=== PATIENT | male | born 1950 | race Caucasian/White ===

== ENCOUNTER 2017-10-22 09:37 | Inpatient (IN) | payer MEDICARE, OTHER, SELFPAY ==
[2017-10-22] VITALS (32 sets, daily range): BP systolic 140–176; BP diastolic 75–112; PULSE 64–90; RESP 9–20; TEMP 36–37.8; O2SAT 96–100; BMI 34.2; BMI 34.3; BMI 35.6
--- NOTE | 2017-10-22 09:54 | EKG12_ITS ---
Test Reason : Blood Pressure : / mmHG Vent. Rate : 068 BPM Atrial Rate : 068 BPM P-R Int : 168 ms QRS Dur : 084 ms QT Int : 396 ms P-R-T Axes : 054 -04 027 degrees QTc Int : 421 ms Normal sinus rhythm Low voltage QRS ST elevation consider anterolateral injury or acute infarct ACUTE SC / STEMI Abnormal ECG No previous ECGs available Confirmed by TRACEY PETTY, BRITTNY ([id number]), electronic news gathering editor CRISTINE ANDREA ([id number]) on 11/04/2017 9:38:03 AM Referred By: Vero Bullock Confirmed By:BRITTNY WEBB MD
--- NOTE | 2017-10-22 10:00 | ED.VISSUMM ---
- ER Visit Summary Date of Service: 10/22/17 Chief Complaint: Abdominal pain History of Present Illness: The patient is a 67 M meets the abdominal pain started on Friday. He was helping his son lipped/move metal scraps. He does complain of shortness of breath. He also informed that he has tightness in his throat and upper chest. He has pain that radiates and points to the xiphoid process to the sternal notch. He states the abdominal pain feels like I drank gasoline. When asked to clarify he replied burning. There is a positional component as well as an exertional component. He denies vomiting, diarrhea. Denies black or maroon stool. He denies history of peptic ulcer disease, hiatal hernia or reflux. He denies any discomfort in his shoulders, upper extremities or back. He denies any leg pain, swelling or discoloration. Has no other complaints. Upon further questioning he admits to diverticulitis. Initially he stated he had no medical problems only takes vitamins. When asked to compare the discomfort he is presently having with diverticulitis and he reports this is different. Physical Examination: Vital signs remarkable blood pressure 158/108. He appears uncomfortable. HEENT exam is unremarkable. Heart is regular without murmur, gallop or rub. S1 and S2 are normal. Lungs are clear to auscultation with good movement of air bilaterally. Abdomen is remarkable for tenderness to deep palpation between the xiphoid process and umbilicus. He has a reducible hernia. There is no asymmetry, swelling, discoloration, leg vein distention, palpable cords or tenderness along the distribution of the deep venous system. Neuro exam is nonfocal. Test Results: I was handed patient's EKG at 10 003 and he has an acute anterior ST elevation LA. Emergency Department Course and Treatment: Initial workup was undertaken to evaluate for GI versus cardiac etiology. In light of EKG changes will initiate STEMI alert and administer appropriate medication. Treatment Plan: STEMI alert called. Patient given appropriate meds and taken emergently to Computerized Table Cutter Disposition: To petroleum refinery laborer Impression: Acute anterior ST elevation LA This note was generated with [employer] dictation software. It may contain incorrect words, spelling, and punctuation that were not noted in review of the chart prior to signing ED Disposition - Plan for ED Patient: Chief Complaint: Abd Pain Referrals: Juan Pierce MD [Primary Care Provider] -
--- NOTE | 2017-10-22 10:05 | ED.DCSUM_ITS ---
- ER Visit Summary Date of Service: 10/22/17 Chief Complaint: Abdominal pain History of Present Illness: The patient is a 67 M meets the abdominal pain started on Friday. He was helping his son lipped/move metal scraps. He does complain of shortness of breath. He also informed that he has tightness in his throat and upper chest. He has pain that radiates and points to the xiphoid process to the sternal notch. He states the abdominal pain feels like I drank gasoline. When asked to clarify he replied burning. There is a positional component as well as an exertional component. He denies vomiting, diarrhea. Denies black or maroon stool. He denies history of peptic ulcer disease, hiatal hernia or reflux. He denies any discomfort in his shoulders, upper extremities or back. He denies any leg pain, swelling or discoloration. Has no other complaints. Upon further questioning he admits to diverticulitis. Initially he stated he had no medical problems only takes vitamins. When asked to compare the discomfort he is presently having with diverticulitis and he reports this is different. Physical Examination: Vital signs remarkable blood pressure 158/108. He appears uncomfortable. HEENT exam is unremarkable. Heart is regular without murmur, gallop or rub. S1 and S2 are normal. Lungs are clear to auscultation with good movement of air bilaterally. Abdomen is remarkable for tenderness to deep palpation between the xiphoid process and umbilicus. He has a reducible hernia. There is no asymmetry, swelling, discoloration, leg vein distention, palpable cords or tenderness along the distribution of the deep venous system. Neuro exam is nonfocal. Test Results: I was handed patient's EKG at 10 003 and he has an acute anterior ST elevation AL. Emergency Department Course and Treatment: Initial workup was undertaken to evaluate for GI versus cardiac etiology. In light of EKG changes will initiate STEMI alert and administer appropriate medication. Treatment Plan: STEMI alert called. Patient given appropriate meds and taken emergently to Deputy Chief Magistrate Disposition: To woodworking shop laborer Impression: Acute anterior ST elevation AL This note was generated with [employer] dictation software. It may contain incorrect words, spelling, and punctuation that were not noted in review of the chart prior to signing ED Disposition - Plan for ED Patient: Chief Complaint: Abd Pain Referrals: Juan Pierce MD [Primary Care Provider] -
[2017-10-22] MEDS: TICAGRELOR 90 MG TABLET 180 MG PO (10:07)
[2017-10-22] MEDS: Aspirin 81 MG TAB.CHEW 324 MG PO (10:07)
[2017-10-22] MEDS: Heparin Injection 5,000 UNITS/ML Syringe 4000 UNITS IV (10:07)
[2017-10-22 10:16] LABS: Absolute Lymphocyte Count 1.81 X10^3/ul (0.83-4.51); Absolute Neutrophil Count 5.7 X10^3/uL (2.0-7.7); Basophil# 0.03 X10^3/uL; Basophil% 0.4 % (0-1); Eosinophil# 0.07 X10^3/uL; Eosinophils% 0.9 % (0-5); Hematocrit 49.5 % (40-54); Hemoglobin 17.2 g/dl (13.0-16.5); Lymphocyte # 1.81 X10^3/ul (4.0); Lymphocyte % 22.2 % (19-41); Mean Corp Hgb Conc 34.7 g/gl (32-36); Mean Corpuscular Hgb 29.2 pg (27.0-32.0); Mean Platelet Vol. 10.1 fl (6.2-12.0); Monocyte# 0.58 X10^3/uL; Monocyte% 7.1 % (0-10); Neutrophil # 5.66 X10^3/uL (2.7-7.7); Neutrophil % 69.2 % (47-70); Platelet Count 241 K/mm3 (150-450); RBC Distribution Width CV 13.1 % (11.6-14.6); RBC Distribution Width SD 40.9 fl (35.1-43.9); Red Blood Count 5.89 M/mm3 (4.6-6.2); White Blood Count 8.2 K/mm3 (4.4-11.0)
[2017-10-22 10:17] LABS: POSITIVE COUNT NO; POSITIVE DIFFERENTIAL NO; POSITIVE MORPHOLOGY NO
--- NOTE | 2017-10-22 10:18 | ED.RN ---
1008 PT TO SPECIAL DELIVERY MAIL CARRIER. SPECIAL DELIVERY MAIL CARRIER CALLED READY SHORTLY AFTER STEMI CALLED.
--- NOTE | 2017-10-22 10:29 | CASEMGMT ---
Social Work Note Responded to STEMI alert. Pt in lab manager for procedure and , Sarah, waiting in internal waiting room. Introduced self and role to Sarah. Offer to make phone calls and she states she has contacted who she needs and just needs to contact her son at college. States that her other son Dawson is on his way. Sarah is tearful and emotional support provided. Additional stressors are that her mother is here for surgery today as well. Sarah continues to deny needs. Son, Dawson, arrives and SW offers to bring him back to internal waiting room while she call her other son. Escort Dawson from ED entrance to internal lab manager waiting area. Both continue to deny needs and thank SW. Make Sarah and Dawson aware that SW is available if needed. Pt to be admitted after procedure. Plan: DUGLAS Rico, NANOTECHNOLOGIST, CAP INSPECTOR
[2017-10-22 10:33] LABS: International Normalized Ratio 0.9; Partial Thromboplast Time 30.2 Seconds (24.1-36.2); Prothrombin Time (Protime)PT. 12.2 SECONDS (11.7-14.9)
[2017-10-22 10:43] LABS: AST(SGOT) 32 U/L (15-37); Alanine Aminotransfer ALT/SGPT 34 U/L (16-61); Albumin, Serum 3.9 g/dL (3.2-5.0); Alkaline Phosphatase 77 U/L (45-117); Bilirubin, Direct 0.15 mg/dL (0.00-0.30); Globulin 4.4 g/dL (2.2-4.2); Lipase 227 U/L (73-393); Protein, Total 8.3 g/dL (6.4-8.2)
[2017-10-22 10:51] LABS: Anion Gap 10 (5-15); BUN 14 mg/dL (7-18); BUN/Creat Ratio 10.4 RATIO (10-20); Calcium,Total 9.8 mg/dL (8.5-10.1); Chloride 101 mmol/L (98-107); Creatinine, Serum 1.34 mg/dL (0.70-1.30); EST Glomerular Filtration Rate 57 mL/min (>60); Est Glom Filt Rate - Afr Amer 69 mL/min (>60); Estimated Creatinine Clearance 54.96 ml/min; Glucose 135 mg/dL (74-106); Potassium 4.3 mmol/L (3.5-5.1); Sodium Level 137 mmol/L (136-145)
[2017-10-22 11:21] LABS: ACT Activated Clotting Time 313 sec (74-137)
[2017-10-22 11:21] LABS: ACT Activated Clotting Time 169 sec (74-137)
--- NOTE | 2017-10-22 11:30 | EKG12_ITS ---
Test Reason : STEMI Blood Pressure : / mmHG Vent. Rate : 067 BPM Atrial Rate : 067 BPM P-R Int : 166 ms QRS Dur : 086 ms QT Int : 382 ms P-R-T Axes : 053 044 052 degrees QTc Int : 403 ms Normal sinus rhythm Low voltage QRS Borderline ECG When compared with ECG of 22-OCT-2017 10:02, MANUAL COMPARISON REQUIRED, DATA IS UNCONFIRMED Confirmed by TRACEY PETTY, BRITTNY ([id number]), assignment editor CRISTINE ANDREA ([id number]) on 10/27/2017 2:06:22 PM Referred By: Vero Bullock Confirmed By:BRITTNY WEBB MD
--- NOTE | 2017-10-22 11:37 | CON.PCM_ITS ---
Problem List (1) ST elevation (STEMI) myocardial infarction involving left anterior descending coronary artery Status: Acute Reason for Consult Date of Consultation: 10/22/17 History of Present Illness: The patient is a 67 year old M with past medical history significant for diverticulitis only. According to the patient, he has been having anterior chest discomfort off and on since this last Friday. However since last night, it was more constant. He therefore sought help in the emergency room. He had also been complaining of tightness in his throat discomfort. In the emergency room, an EKG was done. It was consistent with acute anterior myocardial infarction. Subsequently a STEMI alert was called. Patient denies any previous history of coronary artery disease. He denies any history of angina either at rest or exertion before. However he does give history of some shortness of breath with exertion. Denies any palpitations. No orthopnea. No PND. No ankle edema. [] Past Medical History Allergies/Adverse Reactions: Allergies erythromycin base Adverse Reaction (Verified 10/22/17 09:40) Nausea/Vom/Diarrhea Smoking Status: Never smoker Review of Systems - Review of Systems General: Denies: Fever, Chills, Anorexia, Weight Loss HEENT: Denies: Head Aches Cardiovascular: Reports: Chest Discomfort at Rest. Denies: Orthopnea, PND, Peripheral Edema, Palpitations, Lightheadedness, Near Syncope, Syncope Respiratory: Denies: Cough, Hemoptysis, Shortness of Breath Gastrointestinal: Reports: Epigastric Discomfort Muscoloskeletal: Denies: Myalgias Psychiatric: Denies: Anxiety, Depression Endocrine: Denies: Heat Intolerance, Cold Intolerance, Unexplained Weight Loss Hematologic/ Lymphatic: Denies: Easy Brusing, Easy Bleeding Subjectve: Appeared distressed. Anxious Objective: Vital Signs Temp Pulse Resp BP Pulse Ox 98 F 64 20 H 158/108 H 100 10/22/17 09:38 10/22/17 09:38 10/22/17 09:38 10/22/17 09:38 10/22/17 09:38 General: Alert, Oriented x 3, In Acute Distress HEENT: Atraumatic, Normocephalic Oral: Moist Mucosa Neck: Supple Lungs: Clear to auscultation Cardiovascular: Regular Rhythm, Normal S1, Normal S2 Abdomen: Bowel Sounds Present, Soft, - - Mild epigastric tenderness. Extremities: No Cyanosis Neurological: No Focal Motor or Sensory Deficit Psych/Mental Status: Appropriate Rhythm: Normal sinus rhythm EKG: Normal sinus rhythm. ST elevation consistent with acute anterior myocardial infarction Assessment/Plan 1. Acute anterior myocardial infarction. Patient was advised emergent coronary angiography and possible revascularization. After obtaining informed consent, the procedure was undertaken. Coronary angiography revealed total occlusion of the proximal left anterior descending artery. Successful percutaneous revascularization was performed with aspiration thrombectomy and placement of a 3.0 x 38 mm resolute integrity drug-eluting stent. Excellent results were noted with confucianism of HARI-3 flow 2. Dual antiplatelet therapy with aspirin and Brilinta for at least one year 3. Start low-dose beta blockers, MILAD inhibitors and Aldactone 4. Impaired LV systolic function secondary to #1 above. Estimated ejection fraction 30-35%. Start low-dose beta blockers MILAD inhibitors and Aldactone as noted above 5. Start on statins. Check lipid profile 6. 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 For staged intervention, possibly as outpatient
--- NOTE | 2017-10-22 11:47 | CL.I_ITS ---
Patient Name: YAYA HOPKINS Study Date: 10/22/2017 Performing: Vero Bullock MD Ht: 69 inches 175 cm : 1950 Wt: 231.8 lbs 105 kg Age: 67 Gender: male BSA: 2.2 PROCEDURE(S) PERFORMED TG14-THD/COR/LV TI56-VJL, ESDRAS AND/OR PTCA, ARTERY OR GRAFT, SINGLE VESSEL CLINICAL PROFILE AND CO-MORBIDITIES CAD Presentations: STEMI. Symptom onset Date/Time: 10/22/2017 Time Not Available CONCLUSIONS 100% Prox LAD 70% Mid LCX 80% Mid RCA LVEF 30-35% RECOMMENDATIONS ASA Indefinitley Brilinta for at least 12 months Staged PCI to RCA +/- LCX DESCRIPTION OF PROCEDURE The patient arrived to the procedure lab. The risks and benefits of the procedure as well as a full d escription of our services here and lack of surgical backup were fully explained to the patient and/o r their significant other prior to the catheterization. The Timeout was completed, verifying the jhony ect patient and procedure. The patient's procedural site was prepped and draped in the usual fashion. Local anesthetic was given subcutaneously to right radial region with Lidocaine 2%. Using a modified Seldinger technique, arterial access was obtained via the right radial artery, a 6Fr sheath was inse rted.. Left Coronary Artery selective angiography was performed in multiple views using a 5 Fr. 4.0 [place] catheter. Right Coronary Artery selective angiography was then performed in multiple views usin g a 5 Fr. 4.0 [place] catheter. Left Ventriculography was performed in [place] projection using a 5 Fr. Pig tail catheter. LV to AO pullback pressures were then recordedThe images were reviewed and options dis cussed. A decision was then made to proceed with an Intervention, IVUS or other adjunct procedure. XB3.0 Guide catheter was inserted and engaged into the RCA. Runthru Guide wire was advanced to the LA D. [place] AP inserted Pass # 1 [place] AP Removed Angiogram performed pre stent dilatation. 3.0x38 Res olute Drug Eluting stent was advanced across the lesion in the LAD, proximal. Angiogram performed pos t stent deployment. NC Emerge 3.0x20 Balloon catheter was inserted post stent. Angiogram performed po st balloon dilatation.. . The arterial sheath was pulled and a TR Band was applied for hemostasis. CORONARY ANGIOGRAPHY DOMINANCE: Right Dominant LEFT HEART ASSESSMENT Left Ventricular Ejection Fraction: by LV Gram 35 % LVEDP: 10 mmHg LEFT MAIN: Angiographically normal LEFT ANTERIOR DECENDING ARTERY: PROX LAD: 100% RIGHT CORONARY ARTERY: 80% Mid INTERVENTION INFORMATION LESION SITE: LAD (Proximal) Lesion Complexity: High/C, thrombus present: Yes, culprit lesion: Yes Pre Stenosis: 100 % Pre intervention HARI flow: 0 PROCEDURE: Thrombectomy, Drug Eluting Stent with post dilatation Post Stenosis: 0 % Post intervention HARI flow: 3 Lesion Devices: Cordis 6 Fr XB3.0 100cm Guide Catheter Medtronic 6 Fr. [place] AP Aspiration Catheter Terumo .014 Runthrough Extra Floppy 180cm straight Medtronic Resolute RX ESDRAS 3.0x38 COMPLICATIONS No Complications PROCEDURE MEDICATIONS Fentanyl 50 mcg IV Versed 1 mg IV Versed 2 mg IV Fentanyl 50 mcg IV Oxygen: 2 L/min via nasal cannula Angiomax Bolus 15.8 ml's 10/22/2017 10:35:54 Angiomax 5mg / ml @ 36.8 ml/hr IV started @ 36.8 ml/hr @ 10/22/2017 10:41:32 Nitro 200 mcg IC 10/22/2017 10:52:25 Pepcid 20 mg IV 10/22/2017 10:23:09 SUMMARY OF HEMODYNAMIC DATA Time AIR REST ECG 10:20:33 AO 139/86 (111) SA 10:31:19 LV 138/2, 13 11:03:24 LV 134/5, 15 11:03:30 LV 135/12, 20 11:04:46 LVp 126/13, 20 11:04:55 AOp 141/89 (112) 11:05:00 Signed By Vero Bullock MD On 10/22/2017 11:46:35 Vero Bullock MD
[2017-10-22] MEDS: 0.9% Normal Saline 1,000 ML 100 ML IV (12:08)
[2017-10-22 12:12] LABS: Cholesterol 253 mg/dL (200); High Density Lipoprotein 46 mg/dL; Triglycerides 377 mg/dL; Very Low Density Lipoprotein 75 mg/dL (5-40)
[2017-10-22] MEDS: Lisinopril 2.5 MG Tablet PO ×2 (12:40→14:19)
[2017-10-22] MEDS: Carvedilol 3.125 MG TABLET PO ×2 (12:40→21:48)
[2017-10-22] MEDS: Atorvastatin Calcium 80 MG Tablet PO (12:40)
--- NOTE | 2017-10-22 14:07 | CRPHASE1 ---
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:: Calvin Quiroga Admit Date:: 10/22/17 Phase I Charge:: Level I - Education Risk Factors/Lifestyle Smoking Status: Never smoker Hx Hypertension: No Hx Diabetes Mellitus Type 2: No Hx Metabolic Disorders: No Hx Obesity: Yes Height: 1.75 m Weight:: 105.233 kg BMI: 34.2 Stress: Work-related Caffeine: Yes Laboratory Values: Cardiac Rehab Phase I Labs Triglycerides 377 mg/dL (-199) H 10/22/17 10:05 Cholesterol 253 mg/dL (200) H 10/22/17 10:05 LDL Cholesterol 132 mg/dL (0-130) H 10/22/17 10:05 HDL Cholesterol 46 mg/dL (40-) 10/22/17 10:05 Hospital Course Pain Description: Sharp, Cramping Date/LVF/EF:: 10/22/17 Cardiac Cath Date:: 10/22/17 Medical/Surgical History DC:: Yes Angina:: Yes - in lower abdominal Pulmonary:: No COPD:: No Asthma:: No Diabetes:: No Diabetes Type II:: No Hypertension:: No Dyslipidemia:: No CEA:: No PE:: No DVT:: No PVD:: No PAD:: No Arthritis:: No GI:: No GERD:: No Cancer:: No Renal:: No Thyroid:: No Depression:: No Anxiety:: No Discharge/Home/Social Eval Marital Status:
--- NOTE | 2017-10-22 14:11 | CRPHASE1_ITS ---
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 ):: Calvin Quiroga Admit Date:: 10/22/17 Phase I Charge:: Level I - Education Risk Factors/Lifestyle Smoking Status: Never smoker Hx Hypertension: No Hx Diabetes Mellitus Type 2: No Hx Metabolic Disorders: No Hx Obesity: Yes Height: 1.75 m Weight:: 105.233 kg BMI: 34.2 Stress: Work-related Caffeine: Yes Laboratory Values: Cardiac Rehab Phase I Labs Triglycerides 377 mg/dL (-199) H 10/22/17 10:05 Cholesterol 253 mg/dL (200) H 10/22/17 10:05 LDL Cholesterol 132 mg/dL (0-130) H 10/22/17 10:05 HDL Cholesterol 46 mg/dL (40-) 10/22/17 10:05 Hospital Course Pain Description: Sharp, Cramping Date/LVF/EF:: 10/22/17 Cardiac Cath Date:: 10/22/17 Medical/Surgical History [place]:: Yes Angina:: Yes - in lower abdominal Pulmonary:: No COPD:: No Asthma:: No Diabetes:: No Diabetes Type II:: No Hypertension:: No Dyslipidemia:: No CEA:: No PE:: No DVT:: No PVD:: No PAD:: No Arthritis:: No GI:: No GERD:: No Cancer:: No Renal:: No Thyroid:: No Depression:: No Anxiety:: No Discharge/Home/Social Eval Marital Status:
--- NOTE | 2017-10-22 14:11 | CRPH1.INSTRU ---
General Education CAD and cardiac anatomy and function:: Patient communicates acknowledgment Explanation of diagnoses and procedures:: Patient communicates acknowledgment Sign/Symptoms of NC:: Patient communicates acknowledgment Antiplatelet therapy: Patient communicates acknowledgment Proper use of NTG-SL: Patient communicates acknowledgment Emergency procedures and activation of EMS: Patient communicates acknowledgment Compliance of all prescribed medications: Patient communicates acknowledgment Smoking Patient Nicotine/Smoking Risk Factors Are:: Never smoked Dyslipidemia Recommendations Include:: Lipid profile not available - patients states doctor said normal range Overweight/Obesity Patient Overweight/Obesity Risk Factors Are:: Overweight = 26-29 Recommendations Include:: Weight loss of 5-10% Overweight/Obesity:: Patient communicates acknowledgment Hypertension Patient Hypertension Risk Factors Are:: No documented hx of HTN Heart Disease Patient Heart Disease Risk Factors Are:: Family history of heart disease < 65 years old - States coming back for second stent in a few months Heart Disease Response Code:: Patient communicates acknowledgment Diabetes Patient Diabetes Risk Factors Are:: No documented hx of diabetes Metabolic Syndrome Recommendations Include:: Does not meet criteria Metabolic Syndrome Response Code:: Patient communicates acknowledgment Sedentary Patient Sedentary Risk Factors Are:: Lack of regular exercise Sedentary Response Code:: Patient communicates acknowledgment Stress Stress Response Code:: Patient communicates acknowledgment
--- NOTE | 2017-10-22 14:15 | CRPH1.INST_ITS ---
General Education CAD and cardiac anatomy and function:: Patient communicates acknowledgment Explanation of diagnoses and procedures:: Patient communicates acknowledgment Sign/Symptoms of VA:: Patient communicates acknowledgment Antiplatelet therapy: Patient communicates acknowledgment Proper use of NTG-SL: Patient communicates acknowledgment Emergency procedures and activation of EMS: Patient communicates acknowledgment Compliance of all prescribed medications: Patient communicates acknowledgment Smoking Patient Nicotine/Smoking Risk Factors Are:: Never smoked Dyslipidemia Recommendations Include:: Lipid profile not available - patients states doctor said normal range Overweight/Obesity Patient Overweight/Obesity Risk Factors Are:: Overweight = 26-29 Recommendations Include:: Weight loss of 5-10% Overweight/Obesity:: Patient communicates acknowledgment Hypertension Patient Hypertension Risk Factors Are:: No documented hx of HTN Heart Disease Patient Heart Disease Risk Factors Are:: Family history of heart disease < 65 years old - States coming back for second stent in a few months Heart Disease Response Code:: Patient communicates acknowledgment Diabetes Patient Diabetes Risk Factors Are:: No documented hx of diabetes Metabolic Syndrome Recommendations Include:: Does not meet criteria Metabolic Syndrome Response Code:: Patient communicates acknowledgment Sedentary Patient Sedentary Risk Factors Are:: Lack of regular exercise Sedentary Response Code:: Patient communicates acknowledgment Stress Stress Response Code:: Patient communicates acknowledgment
[2017-10-22 14:51] LABS: M R Staph aureus DNA By PCR Negative (Negative); Probe Check PASS; Specimen Processing Control PASS
[2017-10-22] MEDS: Spironolactone 25 MG Tablet 12.5 MG PO (16:33)
--- NOTE | 2017-10-22 17:50 | PCM.HP.STD ---
Problem List (1) ST elevation (STEMI) myocardial infarction involving left anterior descending coronary artery Status: Acute (2) Coronary artery disease involving [place] coronary artery of [place] heart Status: Acute Qualifiers: Associated angina: angina presence unspecified Qualified Code(s): I25.10 - Atherosclerotic heart disease of [place] coronary artery without angina pectoris History of Present Illness Date of Admission: 10/22/17 Chief Complaint: chest pain Patient is a 67 years old male with no significant medical problems other than diverticulitis in the past, presents with complaining of chest pain. The chest pain is substernal mid chest pain with some burning quality. He was having chest pain for past 3 days, but the pain was becoming more constant, patient decided to visit ED. At there he had ST elevation of anterior leads, consistent with anterior acute myocardial infarction. Troponin was 1 initially. He was sent to laundry laborer for emergency PTCA. He was found to have total occlusion of proximal LAD, stent was placed. Past Medical History Allergies erythromycin base Adverse Reaction (Verified 10/22/17 09:40) Nausea/Vom/Diarrhea Surgical History: no surgical history Psychiatric History: No pertinent psych hx Lives: Spouse/ Significant Other Smoking Status: Never smoker - *Family History Maternal History Items: No pertinent history Review of Systems Comment: ROS: In general: Patient has been in good health, denied of any constitutional symptoms, such as weight loss, or gain, fever, chills, or night sweats. Patient denied of any profound fatigue. HEENT: Unremarkable. Patient denied of any dizziness, chronic headache, blurred vision, double vision, dry mouth, or nasal congestion. CV/respiratory: See HPI. GI: Patient denied any abdominal pain, nausea, vomiting, diarrhea, constipation, melena, or hematochezia. : Patient denied any significant urinary symptoms. Neurology: Unremarkable. There is no history of seizure as an adult. Psychological: Unremarkable. ?. Endocrine: Unremarkable. Musculoskeletal: Unremarkable. VTE Information - Inpt Only VTE Present on Admission: No VTE Mechan Device Prophylaxis: SCD's VTE Pharm Prophylaxis ordered?: Yes Patient Problems: Active and Suspected Problems ST elevation (STEMI) myocardial infarction involving left anterior descending coronary artery (Acute) Coronary artery disease involving [place] coronary artery of [place] heart (Acute) Subjective: In general, patient is a well-nourished and developed adult. HEENT: Head is atraumatic, and normocephalic. Pupils are equal, round, and reactive to light and accommodations. Neck is supple. There is no lymphadenopathy, or thyromegaly. Oral mucosa is pink, and moist. There are no lesions. Heart: Auscultation is normal with regular rhythm and rate. There is no extra heart sounds, or murmurs. S1 and S2 are present. Point of maximal impulse is not displaced. Lungs: Lungs are clear to auscultation bilaterally. There is no wheezing, or crackles. Abdomen: Abdominal wall is non-tender, and non-distended. There is no palpable mass or organomegaly. Normoactive bowel sounds are present. Extremities: There is no cyanosis or clubbing. Peripheral pulses are palpable. There is no edema. Skin: There are no any skin discoloration or lesions. Neurological: CN II - XII are intact. Sensory and motor functions are grossly normal with no obvious deficit. Cerebellar functions are within normal range. Gait was not tested. - Physical Exam Vital Signs Temp Pulse Resp BP Pulse Ox 96.8 F L 71 13 152/88 H 99 10/22/17 17:00 10/22/17 17:00 10/22/17 17:00 10/22/17 17:00 10/22/17 17:00 Oxygen Flow Rate (L/min) 2 Oxygen Delivery Method Room Air Weight: 232 lb Body Mass Index (BMI) 35.6 Intake and Output for Last 24 Hours 10/20/17 10/21/17 10/22/17 23:59 23:59 23:59 Output Total 300 / 300 Balance -300 / -300 Laboratory Tests Past 24 Hrs 10/22/17 10/22/17 10/22/17 10:31 11:04 11:40 Activated Clotting Time 169 H 313 H MRSA (PCR) Negative Assessment/Plan Active and Suspected Problems ST elevation (STEMI) myocardial infarction involving left anterior descending coronary artery (Acute) Coronary artery disease involving [place] coronary artery of [place] heart (Acute) Patient is a 67 years old male with no significant medical problems other than diverticulitis in the past, presents with complaining of chest pain. The chest pain is substernal mid chest pain with some burning quality. He was having chest pain for past 3 days, but the pain was becoming more constant, patient decided to visit ED. At there he had ST elevation of anterior leads, consistent with anterior acute myocardial infarction. Troponin was 1 initially. He was sent to laundry laborer for emergency PTCA. He was found to have total occlusion of proximal LAD, stent was placed. #1 S/P anterior acute myocardial infarction. S/P PTCA with ESDRAS to LAD. Dual antiplatelet therapy with aspirin and Brilinta. Beta-donna and statin were started. #2 LV systolic dysfunction. EF30-35%. Low dose lisinopril, beta donna, and spironolactone were started. #3 Coronary artery disease. He still has severe residual coronary artery disease in RCA and left circumflex. Cardiology is planning staged intervention. VTE prophylaxis: Lovenox SQ. GI prophylaxis: H2 donna po. Patient is full code. Disposition: home in 1 to 2 days. Code Visit Inpatient E&M: 86192 Init Hosp L3
--- NOTE | 2017-10-22 18:04 | HP.PCM_ITS ---
Problem List (1) ST elevation (STEMI) myocardial infarction involving left anterior descending coronary artery Status: Acute (2) Coronary artery disease involving [place] coronary artery of [place] heart Status: Acute Qualifiers: Associated angina: angina presence unspecified Qualified Code(s): I25.10 - Atherosclerotic heart disease of [place] coronary artery without angina pectoris History of Present Illness Date of Admission: 10/22/17 Chief Complaint: chest pain Patient is a 67 years old male with no significant medical problems other than diverticulitis in the past, presents with complaining of chest pain. The chest pain is substernal mid chest pain with some burning quality. He was having chest pain for past 3 days, but the pain was becoming more constant, patient decided to visit ED. At there he had ST elevation of anterior leads, consistent with anterior acute myocardial infarction. Troponin was 1 initially. He was sent to microbiology lab analyst for emergency PTCA. He was found to have total occlusion of proximal LAD, stent was placed. Past Medical History Allergies erythromycin base Adverse Reaction (Verified 10/22/17 09:40) Nausea/Vom/Diarrhea Surgical History: no surgical history Psychiatric History: No pertinent psych hx Lives: Spouse/ Significant Other Smoking Status: Never smoker - *Family History Maternal History Items: No pertinent history Review of Systems Comment: ROS: In general: Patient has been in good health, denied of any constitutional symptoms, such as weight loss, or gain, fever, chills, or night sweats. Patient denied of any profound fatigue. HEENT: Unremarkable. Patient denied of any dizziness, chronic headache, blurred vision, double vision, dry mouth, or nasal congestion. CV/respiratory: See HPI. GI: Patient denied any abdominal pain, nausea, vomiting, diarrhea, constipation, melena, or hematochezia. : Patient denied any significant urinary symptoms. Neurology: Unremarkable. There is no history of seizure as an adult. Psychological: Unremarkable. ?. Endocrine: Unremarkable. Musculoskeletal: Unremarkable. VTE Information - Inpt Only VTE Present on Admission: No VTE Mechan Device Prophylaxis: SCD's VTE Pharm Prophylaxis ordered?: Yes Patient Problems: Active and Suspected Problems ST elevation (STEMI) myocardial infarction involving left anterior descending coronary artery (Acute) Coronary artery disease involving [place] coronary artery of [place] heart (Acute) Subjective: In general, patient is a well-nourished and developed adult. HEENT: Head is atraumatic, and normocephalic. Pupils are equal, round, and reactive to light and accommodations. Neck is supple. There is no lymphadenopathy, or thyromegaly. Oral mucosa is pink, and moist. There are no lesions. Heart: Auscultation is normal with regular rhythm and rate. There is no extra heart sounds, or murmurs. S1 and S2 are present. Point of maximal impulse is not displaced. Lungs: Lungs are clear to auscultation bilaterally. There is no wheezing, or crackles. Abdomen: Abdominal wall is non-tender, and non-distended. There is no palpable mass or organomegaly. Normoactive bowel sounds are present. Extremities: There is no cyanosis or clubbing. Peripheral pulses are palpable. There is no edema. Skin: There are no any skin discoloration or lesions. Neurological: CN II - XII are intact. Sensory and motor functions are grossly normal with no obvious deficit. Cerebellar functions are within normal range. Gait was not tested. - Physical Exam Vital Signs Temp Pulse Resp BP Pulse Ox 96.8 F L 71 13 152/88 H 99 10/22/17 17:00 10/22/17 17:00 10/22/17 17:00 10/22/17 17:00 10/22/17 17:00 Oxygen Flow Rate (L/min) 2 Oxygen Delivery Method Room Air Weight: 232 lb Body Mass Index (BMI) 35.6 Intake and Output for Last 24 Hours 10/20/17 10/21/17 10/22/17 23:59 23:59 23:59 Output Total 300 / 300 Balance -300 / -300 Laboratory Tests Past 24 Hrs 10/22/17 10/22/17 10/22/17 10:31 11:04 11:40 Activated Clotting Time 169 H 313 H MRSA (PCR) Negative Assessment/Plan Active and Suspected Problems ST elevation (STEMI) myocardial infarction involving left anterior descending coronary artery (Acute) Coronary artery disease involving [place] coronary artery of [place] heart (Acute) Patient is a 67 years old male with no significant medical problems other than diverticulitis in the past, presents with complaining of chest pain. The chest pain is substernal mid chest pain with some burning quality. He was having chest pain for past 3 days, but the pain was becoming more constant, patient decided to visit ED. At there he had ST elevation of anterior leads, consistent with anterior acute myocardial infarction. Troponin was 1 initially. He was sent to microbiology lab analyst for emergency PTCA. He was found to have total occlusion of proximal LAD, stent was placed. #1 S/P anterior acute myocardial infarction. S/P PTCA with ESDRAS to LAD. Dual antiplatelet therapy with aspirin and Brilinta. Beta-donna and statin were started. #2 LV systolic dysfunction. EF30-35%. Low dose lisinopril, beta donna, and spironolactone were started. #3 Coronary artery disease. He still has severe residual coronary artery disease in RCA and left circumflex. Cardiology is planning staged intervention. VTE prophylaxis: Lovenox SQ. GI prophylaxis: H2 donna po. Patient is full code. Disposition: home in 1 to 2 days. Code Visit Inpatient E&M: 91599 Init Hosp L3
[2017-10-22] MEDS: Famotidine 20 MG Tablet PO (19:28)
[2017-10-22] MEDS: TICAGRELOR 90 MG TABLET PO (21:48)
[2017-10-23] VITALS (28 sets, daily range): BP systolic 80–132; BP diastolic 53–99; PULSE 79–130; RESP 11–25; TEMP 36.8–37.9; O2SAT 93–99
--- NOTE | 2017-10-23 05:55 | EKG12_ITS ---
Test Reason : INVERT T WAVE Blood Pressure : / mmHG Vent. Rate : 091 BPM Atrial Rate : 091 BPM P-R Int : 168 ms QRS Dur : 084 ms QT Int : 398 ms P-R-T Axes : 057 033 100 degrees QTc Int : 489 ms Normal sinus rhythm Low voltage QRS A- Septal infarct -recent Confirmed by TRACEY PETTY, BRITTNY ([id number]), graphic editor CRISTINE ANDREA ([id number]) on 10/27/2017 2:05:19 PM Referred By: Vero Bullock Confirmed By:BRITTNY WEBB MD
[2017-10-23] MEDS: Enoxaparin 40 MG/0.4 ML Syringe SC (05:57)
[2017-10-23 06:05] LABS: Hematocrit 47.2 % (40-54); Hemoglobin 16.3 g/dl (13.0-16.5); Mean Corp Hgb Conc 34.5 g/gl (32-36); Mean Corpuscular Hgb 29.6 pg (27.0-32.0); Mean Corpuscular Volume 85.8 fL (80-94); Platelet Count 241 K/mm3 (150-450); RBC Distribution Width CV 13.6 % (11.6-14.6); RBC Distribution Width SD 42.2 fl (35.1-43.9)
[2017-10-23 06:09] LABS: Scan Indicated on CBC? Y/N NO
[2017-10-23 06:13] LABS: ALB/GLOB Ratio 0.8 RATIO (0.9-2.4); AST(SGOT) 322 U/L (15-37); Alanine Aminotransfer ALT/SGPT 69 U/L (16-61); Albumin, Serum 3.2 g/dL (3.2-5.0); Alkaline Phosphatase 61 U/L (45-117); Anion Gap 7 (5-15); BUN 13 mg/dL (7-18); BUN/Creat Ratio 10.7 RATIO (10-20); Calcium,Total 8.7 mg/dL (8.5-10.1); Chloride 101 mmol/L (98-107); Creatinine, Serum 1.22 mg/dL (0.70-1.30); EST Glomerular Filtration Rate 63 mL/min (>60); Est Glom Filt Rate - Afr Amer 77 mL/min (>60); Estimated Creatinine Clearance 60.37 ml/min; Globulin 3.9 g/dL (2.2-4.2); Glucose 118 mg/dL (74-106); Potassium 3.9 mmol/L (3.5-5.1); Protein, Total 7.1 g/dL (6.4-8.2); Sodium Level 136 mmol/L (136-145)
--- NOTE | 2017-10-23 07:08 | CT_ITS ---
STUDY: CT ABDOMEN AND PELVIS WITH CONTRAST REASON FOR EXAM: Male, 67 years old. Abdominal pain. History of diverticulitis. RADIATION DOSAGE (If Supplied By Facility): CTDIvol = ( 18.99 ) mGy, DLP = ( 1118.99 ) mGycm TECHNIQUE: Transaxial images were obtained from the dome of the diaphragm to the symphysis pubis with oral contrast. 100CC ml of Isovue 300 contrast was administered. Sagittal and coronal images were reconstructed. Individualized dose optimization techniques were used for this CT. COMPARISON: CT of the abdomen and pelvis, January 25, 2008. FINDINGS: There is a vague semisolid nodule at the left lung base measuring 8 mm in diameter. This is best seen on image 22 of series 2 using lung windows. Lung bases are otherwise clear. The visualized portions of the heart are within normal limits. There is diffuse fatty infiltration of liver without focal mass. There is minimal focal fatty sparing along the gallbladder fossa. Normal gallbladder and extrahepatic biliary system. Normal spleen. Normal pancreas. Is slight prominence of both adrenal glands which may represent hyperplasia or small adenomas. Normal right kidney. Normal left kidney. Normal bilateral ureters. Normal visualized stomach. Normal small intestine. There is sigmoid diverticulosis without acute inflammatory change. The proximal colon is redundant but otherwise unremarkable. The appendix is visualized and appears normal. Normal abdominal aorta. Normal inferior vena cava. Normal retroperitoneum. Normal urinary bladder. Prostate and seminal vesicles. There is no pelvic lymphadenopathy. No free air or free fluid is seen within the peritoneal cavity. There is left inguinal hernia of omental fat. The abdominal wall is otherwise unremarkable. There are mild degenerative changes of the lumbar spine. CT/Abdomen/Pelvis WITH Contrast IMPRESSION: 1. The vague nodular density seen at the left lung base appears mildly increased in size from prior CT. Dedicated chest CT is recommended. 2. Fatty infiltration of the liver. 3. Diverticulosis without acute inflammatory change. 4. No other interval changes. Electronically Signed: Bharat Lai DO at 13:20 EDT Tel [phone], Service support ,
[2017-10-23] MEDS: 0.9% Normal Saline 1,000 ML 75 ML IV ×2 (07:54→12:25)
--- NOTE | 2017-10-23 08:00 | ECHOD_ITS ---
Reason For Study: S/P IA Procedure This was a 2D Doppler, Color Flow transthoracic echocardiogram. Exam performed portable in ICU/CCU. Left Ventricle Normal LV size. Moderate segmental systolic dysfunction (see wall motion). The estimated ejection fraction is 35 %. [place] : Akinetic. Anterio-Basal: Normal. Lateral-Basal: Normal. Posterior-Basal: Normal. Infero-Basal: Normal. Basal inferoseptal: Hypokinetic. Basal anteroseptal: Hypokinetic. Mid -Anterior : Hypokinetic. Mid-Lateral : Normal. Mid-Posterior: Normal. Mid-Inferior: Normal. Mid- inferoseptal : Hypokinetic. Mid-anteroseptal : Hypokinetic. The rest of the wall segments are normal. Right Ventricle Normal RV size. Normal systolic function. Atria Normal left atrium. Normal right atrium. Mitral Valve Normal mitral valve. Tricuspid Valve Normal tricuspid valve. Aortic Valve Normal aortic valve. Trisinus/trileaflet aortic valve. Pulmonic Valve Normal pulmonic valve. Great Vessels Mildly dilated aortic root. The pulmonary artery is normal size. Normal inferior vena cava. Pericardium/Pleural No pericardial effusion. MMode/2D Measurements & Calculations LVIDd: 3.4 cm IVSd: 1.3 cm Ao root diam: 4.0 cm RVDd: 2.7 cm LVPWd: 1.1 cm LA dimension: 3.6 cm LAV(MOD-bp): 31.0 ml EDV(MOD-sp4): 110.2 ml EDV(MOD-sp2): 77.1 ml LAV(MOD-bp) Indexed: 14.0 ml/m2 ESV(MOD-sp4): 64.9 ml EF(MOD-sp2): 15.2 % LAV(MOD-sp2): 31.0 ml EF(MOD-sp4): 41.2 % LAV(MOD-sp4): 24.4 ml SV(MOD-sp4): 45.4 ml SV(MOD-sp2): 11.7 ml LA A4 area: 11.0 cm2 RA A4 area: 8.1 cm2 Doppler Measurements & Calculations MV E max james: 27.8 cm/sec Ao V2 max: 102.3 cm/sec LV V1 max: 79.7 cm/sec MV A max james: 74.7 cm/sec Ao max P.2 mmHg LV V1 max P.5 mmHg MV E/A: 0.37 Interpretation Summary Normal LV size. Moderate segmental systolic dysfunction (see wall motion). The estimated ejection fraction is 35 %. Structurally normal valves. Ordering Physician: Vero Bullcok Referring Physician: JOE MAXWELL Performed By: Tram Vargas RDCS, RVT
--- NOTE | 2017-10-23 09:00 | PCM.PN.CARD ---
Subjectve: Patient seen and evaluated and appears to be stable. Abdominal discomfort has subsided Objective: Vital Signs Temp Pulse Resp BP Pulse Ox 98.3 F 87 16 118/72 95 10/23/17 08:00 10/23/17 08:00 10/23/17 08:00 10/23/17 08:00 10/23/17 08:00 Oxygen Flow Rate (L/min) 2 Oxygen Delivery Method Room Air Weight: 234 lb 12.677 oz Body Mass Index (BMI) 35.6 Intake and Output for Last 24 Hours 10/21/17 10/22/17 10/23/17 23:59 23:59 23:59 Intake Total 700 / 700 240 / 240 Output Total 600 / 600 1050 / 1050 Balance 100 / 100 -810 / -810 General: Awake, Alert, Oriented x 3 HEENT: PERRL, EOMI, Sclera Non Icteric Neck: Supple, Good ROM, No Lymph Node Enlargement Lungs: Clear to auscultation Cardiovascular: Regular Rhythm, Normal S1, Normal S2, No Murmurs, No Rubs, No Gallops Vascular: No Carotid Bruits, Normal Femoral Pulses, Normal Radial Pulses, Normal Dorsalis Pedal Pulse, Normal Posterior Tibial Pulses Abdomen: Bowel Sounds Present, Soft, Non Tender, No HSM, No Organomegaly Extremities: No Cyanosis, No Clubbing, No edema Neurological: No Focal Motor or Sensory Deficit 10/23/17 05:45: Sodium 136, Potassium 3.9, Chloride 101, Carbon Dioxide 28.0, Anion Gap 7, BUN 13, Creatinine 1.22, Est GFR (MDRD) Af Amer 77, Est GFR (MDRD) Non-Af 63, BUN/Creatinine Ratio 10.7, Glucose 118 H, Calcium 8.7, Total Bilirubin 0.90 10/23/17 05:45: WBC 15.0 H, RBC 5.50, Hgb 16.3, Hct 47.2, MCV 85.8, MCH 29.6, MCHC 34.5, RDW 13.6, RDW Differential 42.2, Plt Count 241, MPV 10.0 Rhythm: EKG: ECHO: Stress Test: Cardiac Cath: PCI: CT Surgery: Holter monitor: EPS: PPM: CXR: Chest CT Scan: Medical Necessity - Tobacco Use Smoking Status: Never smoker Assessment/Plan 1. ST elevation myocardial infarction The patient presented with abdominal discomfort and was noted to have an ST elevation myocardial infarction for which he underwent angioplasty and stenting with a drug-eluting stent to the left anterior descending artery. His EKG today demonstrates evolving changes. His hemoglobin is stable with no significant drop and his creatinine is also stable with no significant rise. An echocardiogram will be performed today to assess his left ventricular function. He will be started on a beta-donna MILAD inhibitor and high intensity statin in addition to the aspirin and ticagrelor. He does have residual disease in the circumflex artery and right coronary artery and we may consider staged angioplasty or stress testing and angioplasty. 2. Abdominal discomfort He does have previous evidence of abdominal discomfort the etiology of which is not entirely clear his liver function tests are mildly abnormal and I would recommend that we obtain a CT scan of the abdomen and pelvis to exclude any abdominal pathology. Depending on the findings further recommendations will be made. Thank you for allowing me to participate in the care of your patient. Please don't hesitate to call if any issues arise
--- NOTE | 2017-10-23 11:30 | EKG12_ITS ---
Test Reason : AM EKG Blood Pressure : / mmHG Vent. Rate : 085 BPM Atrial Rate : 085 BPM P-R Int : 182 ms QRS Dur : 086 ms QT Int : 404 ms P-R-T Axes : 053 063 081 degrees QTc Int : 480 ms Normal sinus rhythm Low voltage QRS Recent anterior myocardial infarct Confirmed by TRACEY PETTY, BRITTNY ([id number]), non linear editor CRISTINE ANDREA ([id number]) on 10/27/2017 2:06:09 PM Referred By: Vero Bullock Confirmed By:BRITTNY WEBB MD
--- NOTE | 2017-10-23 11:40 | CASEMGMT ---
Case management chart review performed. CM will continue to follow patient's progress. DC Plan: Home.
[2017-10-23] MEDS: Lisinopril 2.5 MG Tablet PO (12:25)
[2017-10-23] MEDS: Carvedilol 3.125 MG TABLET PO ×2 (12:26→21:20)
[2017-10-23] MEDS: Famotidine 20 MG Tablet PO ×2 (12:26→21:20)
[2017-10-23] MEDS: Aspirin E.C. 81 MG Tablet PO (12:26)
[2017-10-23] MEDS: TICAGRELOR 90 MG TABLET PO ×2 (12:26→21:20)
--- NOTE | 2017-10-23 17:31 | PCM.PROGNOTE ---
Patient Problems: Active and Suspected Problems ST elevation (STEMI) myocardial infarction involving left anterior descending coronary artery (Acute) Coronary artery disease involving [place] coronary artery of [place] heart (Acute) Subjective: He feels well. He had some upper abdominal discomfort, responded to antacid. No chest pain otherwise. CT of abd/pelvis were unremarkable except for questionable change in left lung base 8 mm nodule. - Physical Exam General: Alert, Oriented x3, Cooperative, Well developed, Well nourished HEENT: Atraumatic, Normocephalic Oral: Moist Mucosa Neck: Supple, No JVD, Negative Carotid Bruits Lungs: Clear to auscultation, Normal air movement, No rhonchi, No wheeze, No rales Cardiovascular: Regular rate, Regular Rhythm, Normal S1, Normal S2, No murmurs, No Ectopic Activity Abdomen: Bowel Sounds Present, Soft, Non Tender, Non-Distended, No Hepato-splenomegaly Extremities: No clubbing, No cyanosis, No edema Skin: No rashes, No breakdown Musculoskeletal: No Tenderness to Palpation of Joints or Extremities, No Muscle Wasting Lymphatic: No Cervical, Supraclavicular, or Inguinal Adenopathy Neurological: Cranial nerves II-XII grossly intact, Neuro grossly intact Psych/Mental Status: Normal Affect, Appropriate Vital Signs Temp Pulse Resp BP Pulse Ox 98.7 F 85 11 L 108/76 98 10/23/17 12:00 10/23/17 17:00 10/23/17 17:00 10/23/17 17:00 10/23/17 17:00 Oxygen Flow Rate (L/min) 2 Oxygen Delivery Method Room Air Weight: 234 lb 12.677 oz Body Mass Index (BMI) 35.6 Intake and Output for Last 24 Hours 10/21/17 10/22/17 10/23/17 23:59 23:59 23:59 Intake Total 700 / 700 642 / 642 Output Total 600 / 600 1550 / 1550 Balance 100 / 100 -908 / -908 Laboratory Tests Past 24 Hrs 10/23/17 10/23/17 05:45 05:45 WBC 15.0 H RBC 5.50 Hgb 16.3 Hct 47.2 MCV 85.8 MCH 29.6 MCHC 34.5 RDW 13.6 RDW Differential 42.2 Plt Count 241 MPV 10.0 Sodium 136 Potassium 3.9 Chloride 101 Carbon Dioxide 28.0 Anion Gap 7 BUN 13 Creatinine 1.22 Estim Creat Clear Calc 60.37 Est GFR (MDRD) Af Amer 77 Est GFR (MDRD) Non-Af 63 BUN/Creatinine Ratio 10.7 Glucose 118 H Calcium 8.7 Total Bilirubin 0.90 AST 322 H ALT 69 H Alkaline Phosphatase 61 Troponin I 82.70 H* Total Protein 7.1 Albumin 3.2 Globulin 3.9 Albumin/Globulin Ratio 0.8 L Diagnostic Data Abdomen/Pelvis CT 10/23/17 07:08 IMPRESSION: 1. The vague nodular density seen at the left lung base appears mildly increased in size from prior CT. Dedicated chest CT is recommended. 2. Fatty infiltration of the liver. 3. Diverticulosis without acute inflammatory change. 4. No other interval changes. Electronically Signed: Bharat Lai DO at 13:20 EDT Tel [phone], Service support , Medical Necessity - Tobacco Use Smoking Status: Never smoker Tobacco Use: Non-smoker Assessment/Plan Active and Suspected Problems ST elevation (STEMI) myocardial infarction involving left anterior descending coronary artery (Acute) Coronary artery disease involving [place] coronary artery of [place] heart (Acute) Patient is a 67 years old male with no significant medical problems other than diverticulitis in the past, presents with complaining of chest pain. The chest pain is substernal mid chest pain with some burning quality. He was having chest pain for past 3 days, but the pain was becoming more constant, patient decided to visit ED. At there he had ST elevation of anterior leads, consistent with anterior acute myocardial infarction. Troponin was 1 initially. He was sent to laborer syrup machine for emergency PTCA. He was found to have total occlusion of proximal LAD, stent was placed. #1 S/P anterior acute myocardial infarction. S/P PTCA with ESDRAS to LAD. Dual antiplatelet therapy with aspirin and Brilinta. Beta-donna and statin were started. #2 LV systolic dysfunction. EF30-35%. Low dose lisinopril, beta donna, and spironolactone were started. #3 Coronary artery disease. He still has severe residual coronary artery disease in RCA and left circumflex. Cardiology is planning staged intervention. #[address] of abdomen. Left lung base 8 mm nodule appears larger than previous study. Radiology recommended for dedicated CT. Plan for CT chest with contrast tomorrow. VTE prophylaxis: Lovenox SQ. GI prophylaxis: H2 donna po. Patient is full code. Disposition: home in 1 to 2 days. Code Visit Inpatient E&M: 14988 Subs Hosp L2
--- NOTE | 2017-10-23 17:38 | PN_ITS ---
Patient Problems: Active and Suspected Problems ST elevation (STEMI) myocardial infarction involving left anterior descending coronary artery (Acute) Coronary artery disease involving [place] coronary artery of [place] heart (Acute) Subjective: He feels well. He had some upper abdominal discomfort, responded to antacid. No chest pain otherwise. CT of abd/pelvis were unremarkable except for questionable change in left lung base 8 mm nodule. - Physical Exam General: Alert, Oriented x3, Cooperative, Well developed, Well nourished HEENT: Atraumatic, Normocephalic Oral: Moist Mucosa Neck: Supple, No JVD, Negative Carotid Bruits Lungs: Clear to auscultation, Normal air movement, No rhonchi, No wheeze, No rales Cardiovascular: Regular rate, Regular Rhythm, Normal S1, Normal S2, No murmurs, No Ectopic Activity Abdomen: Bowel Sounds Present, Soft, Non Tender, Non-Distended, No Hepato- splenomegaly Extremities: No clubbing, No cyanosis, No edema Skin: No rashes, No breakdown Musculoskeletal: No Tenderness to Palpation of Joints or Extremities, No Muscle Wasting Lymphatic: No Cervical, Supraclavicular, or Inguinal Adenopathy Neurological: Cranial nerves II-XII grossly intact, Neuro grossly intact Psych/Mental Status: Normal Affect, Appropriate Vital Signs Temp Pulse Resp BP Pulse Ox 98.7 F 85 11 L 108/76 98 10/23/17 12:00 10/23/17 17:00 10/23/17 17:00 10/23/17 17:00 10/23/17 17:00 Oxygen Flow Rate (L/min) 2 Oxygen Delivery Method Room Air Weight: 234 lb 12.677 oz Body Mass Index (BMI) 35.6 Intake and Output for Last 24 Hours 10/21/17 10/22/17 10/23/17 23:59 23:59 23:59 Intake Total 700 / 700 642 / 642 Output Total 600 / 600 1550 / 1550 Balance 100 / 100 -908 / -908 Laboratory Tests Past 24 Hrs 10/23/17 10/23/17 05:45 05:45 WBC 15.0 H RBC 5.50 Hgb 16.3 Hct 47.2 MCV 85.8 MCH 29.6 MCHC 34.5 RDW 13.6 RDW Differential 42.2 Plt Count 241 MPV 10.0 Sodium 136 Potassium 3.9 Chloride 101 Carbon Dioxide 28.0 Anion Gap 7 BUN 13 Creatinine 1.22 Estim Creat Clear Calc 60.37 Est GFR (MDRD) Af Amer 77 Est GFR (MDRD) Non-Af 63 BUN/Creatinine Ratio 10.7 Glucose 118 H Calcium 8.7 Total Bilirubin 0.90 AST 322 H ALT 69 H Alkaline Phosphatase 61 Troponin I 82.70 H* Total Protein 7.1 Albumin 3.2 Globulin 3.9 Albumin/Globulin Ratio 0.8 L Diagnostic Data Abdomen/Pelvis CT 10/23/17 07:08 IMPRESSION: 1. The vague nodular density seen at the left lung base appears mildly increased in size from prior CT. Dedicated chest CT is recommended. 2. Fatty infiltration of the liver. 3. Diverticulosis without acute inflammatory change. 4. No other interval changes. Electronically Signed: Bharat Lai DO at 13:20 EDT Tel [phone], Service support , Medical Necessity - Tobacco Use Smoking Status: Never smoker Tobacco Use: Non-smoker Assessment/Plan Active and Suspected Problems ST elevation (STEMI) myocardial infarction involving left anterior descending coronary artery (Acute) Coronary artery disease involving [place] coronary artery of [place] heart (Acute) Patient is a 67 years old male with no significant medical problems other than diverticulitis in the past, presents with complaining of chest pain. The chest pain is substernal mid chest pain with some burning quality. He was having chest pain for past 3 days, but the pain was becoming more constant, patient decided to visit ED. At there he had ST elevation of anterior leads, consistent with anterior acute myocardial infarction. Troponin was 1 initially. He was sent to dairy lab technician for emergency PTCA. He was found to have total occlusion of proximal LAD, stent was placed. #1 S/P anterior acute myocardial infarction. S/P PTCA with ESDRAS to LAD. Dual antiplatelet therapy with aspirin and Brilinta. Beta-donna and statin were started. #2 LV systolic dysfunction. EF30-35%. Low dose lisinopril, beta donna, and spironolactone were started. #3 Coronary artery disease. He still has severe residual coronary artery disease in RCA and left circumflex. Cardiology is planning staged intervention. #[address] of abdomen. Left lung base 8 mm nodule appears larger than previous study. Radiology recommended for dedicated CT. Plan for CT chest with contrast tomorrow. VTE prophylaxis: Lovenox SQ. GI prophylaxis: H2 donna po. Patient is full code. Disposition: home in 1 to 2 days. Code Visit Inpatient E&M: 43081 Subs Hosp L2
[2017-10-23] MEDS: Atorvastatin Calcium 80 MG Tablet PO (21:20)
[2017-10-24] VITALS (17 sets, daily range): BP systolic 86–146; BP diastolic 51–88; PULSE 74–88; RESP 10–21; TEMP 36.7–37.1; O2SAT 92–97
[2017-10-24 03:41] LABS: Hematocrit 43.7 % (40-54); Hemoglobin 14.5 g/dl (13.0-16.5); Mean Corp Hgb Conc 33.2 g/gl (32-36); Mean Corpuscular Hgb 28.8 pg (27.0-32.0); Mean Corpuscular Volume 86.9 fL (80-94); Mean Platelet Vol. 9.9 fl (6.2-12.0); Platelet Count 194 K/mm3 (150-450); RBC Distribution Width CV 13.9 % (11.6-14.6); RBC Distribution Width SD 44.1 fl (35.1-43.9); Red Blood Count 5.03 M/mm3 (4.6-6.2); Scan Indicated on CBC? Y/N NO; White Blood Count 10.9 K/mm3 (4.4-11.0)
[2017-10-24 03:59] LABS: Anion Gap 7 (5-15); BUN 23 mg/dL (7-18); BUN/Creat Ratio 16.5 RATIO (10-20); Calcium,Total 8.8 mg/dL (8.5-10.1); Chloride 102 mmol/L (98-107); Creatinine, Serum 1.39 mg/dL (0.70-1.30); EST Glomerular Filtration Rate 54 mL/min (>60); Est Glom Filt Rate - Afr Amer 66 mL/min (>60); Estimated Creatinine Clearance 52.98 ml/min; Glucose 98 mg/dL (74-106); Potassium 4.2 mmol/L (3.5-5.1); Sodium Level 137 mmol/L (136-145)
--- NOTE | 2017-10-24 05:55 | EKG12_ITS ---
Test Reason : AM EKG Blood Pressure : / mmHG Vent. Rate : 074 BPM Atrial Rate : 074 BPM P-R Int : 176 ms QRS Dur : 086 ms QT Int : 416 ms P-R-T Axes : 055 074 098 degrees QTc Int : 461 ms Normal sinus rhythm Low voltage QRS Septal infarct , age undetermined Marked T wave abnormality, consider anterolateral ischemia , recent traci septal infarct Abnormal ECG Confirmed by TRACEY PETTY, BRITTNY ([id number]), film and video editor CRISTINE ANDREA ([id number]) on 10/27/2017 2:04:17 PM Referred By: Vero Bullock Confirmed By:BRITTNY WEBB MD
[2017-10-24] MEDS: Enoxaparin 40 MG/0.4 ML Syringe SC (06:27)
[2017-10-24] MEDS: 0.9% Normal Saline 1,000 ML 75 ML IV (06:50)
--- NOTE | 2017-10-24 07:00 | CT_ITS ---
STUDY: CT CHEST WITH CONTRAST REASON FOR EXAM: Male, 67 years old. Lung nodule RADIATION DOSAGE (If Supplied By Facility): CTDIvol = ( 18.83 ) mGy, DLP = ( 691.38 ) mGycm TECHNIQUE: Transaxial 2.5 mm imaging was performed following intravenous administration of 75 ml of Isovue 300 contrast material. Multiplanar coronal and sagittal images were reformatted. Individualized dose optimization techniques were used for this CT. COMPARISON: CT abdomen pelvis 10/23/2017. 01/25/2008 FINDINGS: There is a small vague opacification in the posterior left lower lobe just superior to the diaphragm measuring approximately 0.7 x 0.8 x 0.6 cm image 105 series 4 consistent with the previously seen density in the left lower lobe, measuring approximately 0.7 cm 10/23/2017, 0.5 cm 01/25/2008. This has more of a focal parenchymal attenuation rather than a No other solid nodule. Nodules or masses are noted. There is no demonstrated pleural abnormality. Trace pericardial fluid. There are calcifications of the coronary arteries. Normal mediastinum. Normal hilar regions. Normal enhanced pulmonary arteries.. Minimal calcification of the aortic arch. There are multi-level degenerative changes of the thoracic spine. Mild kyphosis. Stable hepatic steatosis and prominence of bilateral adrenal glands. CT/Chest WITH Contrast IMPRESSION: Vague groundglass nodule in the left base slightly increased in size since 01/25/2008 remains indeterminate, but probably benign. Therefore follow-up examination in 6 months may be advantageous. Coronary artery calcification and trace pericardial fluid without change. Other nonacute findings as outlined above. Electronically Signed: Hina Green MD at 7:16 EDT , Service support ,
--- NOTE | 2017-10-24 07:29 | PN.CARD_ITS ---
Subjectve: Patient seen and evaluated. Appears to be doing much better. Objective: Vital Signs Temp Pulse Resp BP Pulse Ox 98.8 F 81 15 113/88 H 96 10/24/17 04:00 10/24/17 07:02 10/24/17 07:02 10/24/17 07:02 10/24/17 07:02 Oxygen Flow Rate (L/min) 2 Oxygen Delivery Method Room Air Weight: 235 lb 14.314 oz Body Mass Index (BMI) 35.6 Intake and Output for Last 24 Hours 10/22/17 10/23/17 10/24/17 23:59 23:59 23:59 Intake Total 700 / 700 1178 / 1178 300 / 300 Output Total 600 / 600 1550 / 1550 225 / 225 Balance 100 / 100 -372 / -372 75 / 75 General: Awake, Alert, Oriented x 3 HEENT: PERRL, EOMI, Sclera Non Icteric Neck: Supple, Good ROM, No Lymph Node Enlargement Lungs: Clear to auscultation Cardiovascular: Regular Rhythm, Normal S1, Normal S2, No Murmurs, No Rubs, No Gallops Vascular: No Carotid Bruits, Normal Femoral Pulses, Normal Radial Pulses, Normal Dorsalis Pedal Pulse, Normal Posterior Tibial Pulses Abdomen: Bowel Sounds Present, Soft, Non Tender, No HSM, No Organomegaly Extremities: No Cyanosis, No Clubbing, No edema Neurological: No Focal Motor or Sensory Deficit 10/23/17 05:45: Sodium 136, Potassium 3.9, Chloride 101, Carbon Dioxide 28.0, Anion Gap 7, BUN 13, Creatinine 1.22, Est GFR (MDRD) Af Amer 77, Est GFR (MDRD) Non-Af 63, BUN/Creatinine Ratio 10.7, Glucose 118 H, Calcium 8.7, Total Bilirubin 0.90, Troponin I 82.70 H* 10/24/17 03:30: WBC 10.9, RBC 5.03, Hgb 14.5, Hct 43.7, MCV 86.9, MCH 28.8, MCHC 33.2, RDW 13.9, RDW Differential 44.1 H, Plt Count 194, MPV 9.9 10/24/17 03:30: Sodium 137, Potassium 4.2, Chloride 102, Carbon Dioxide 28.0, Anion Gap 7, BUN 23 H, Creatinine 1.39 H, Est GFR (MDRD) Af Amer 66, Est GFR ( MDRD) Non-Af 54 L, BUN/Creatinine Ratio 16.5, Glucose 98, Calcium 8.8 Rhythm: EKG: Evolutionary EKG changes of an anterior infarct ECHO: Reduced left ventricular systolic function with severe anterior hypokinesis and apical akinesis estimated EF 35% Medical Necessity - Tobacco Use Smoking Status: Never smoker Tobacco Use: Non-smoker Assessment/Plan 1. ST elevation myocardial infarction The patient presented with abdominal discomfort and was noted to have an ST elevation myocardial infarction for which he underwent angioplasty and stenting with a drug-eluting stent to the left anterior descending artery. His EKG today demonstrates evolving changes. His hemoglobin is stable with no significant drop and his creatinine is also stable with no significant rise. His echocardiogram demonstrated reduced left ventricular ejection fraction estimated at 35% with anterior hypokinesis He was started on a beta-donna MILAD inhibitor and high intensity statin in addition to the aspirin and ticagrelor. He does have residual disease in the circumflex artery and right coronary artery and we may consider staged angioplasty or stress testing and angioplasty. 2. Abdominal discomfort He does have previous evidence of abdominal discomfort the etiology of which is not entirely clear his liver function tests are mildly abnormal . His abdominal CT scan was unremarkable. In addition I see that he had a chest CT scan as well and he will need a follow-up in 6 months. Recommend hydration until noon and then discharge. Discharge on the current medications including rosuvastatin 40 mg a day which the patient prefers. Outpatient follow-up in my office. My office will arrange. Thank you for allowing me to participate in the care of your patient. Please don't hesitate to call if any issues arise
[2017-10-24] MEDS: Aspirin E.C. 81 MG Tablet PO (08:01)
[2017-10-24] MEDS: TICAGRELOR 90 MG TABLET PO (09:35)
[2017-10-24] MEDS: Lisinopril 2.5 MG Tablet PO (09:36)
[2017-10-24] MEDS: Carvedilol 3.125 MG TABLET PO (09:36)
[2017-10-24] MEDS: Famotidine 20 MG Tablet PO (09:36)
--- NOTE | 2017-10-24 11:14 | PCM.DC ---
- Discharge Diagnoses Current Active Problems: Current Active and Chronic Problems ST elevation (STEMI) myocardial infarction involving left anterior descending coronary artery (Acute) Coronary artery disease involving [place] coronary artery of [place] heart (Acute) Reason(s) for Visit for Discharge Instructions: Acute anterior Myocardial infarction You will use the following diet at home:: Cardiac Your food should be the consistency of: Regular Your liquids should be the consistency of: Regular/Thin Discharge Activity: Return to Normal Activity Allergies/Adverse Reactions: Allergies erythromycin base Adverse Reaction (Verified 10/22/17 09:40) Nausea/Vom/Diarrhea Medications to take at Discharge Aspirin E.C. [Ecotrin] 81 mg PO DAILY@0800 tablet 10/24/17 Atorvastatin Calcium [Lipitor] 40 mg PO QHS #30 tab 10/24/17 Carvedilol [Coreg] 3.125 mg PO BID #60 tab 10/24/17 Lisinopril [Zestril] 2.5 mg PO DAILY #30 tab 10/24/17 Ticagrelor [Brilinta] 90 mg PO BID #60 tab 10/24/17 The following prescriptions were given: Atorvastatin Calcium [Lipitor] 40 mg PO QHS #30 tab Lisinopril [Zestril] 2.5 mg PO DAILY #30 tab Carvedilol [Coreg] 3.125 mg PO BID #60 tab Ticagrelor [Brilinta] 90 mg PO BID #60 tab Primary Care Physician: Juan Pierce MD [Primary Care Provider] - Please follow up with your Primary Care Physician in: 2 WEEKS Please Follow Up With: Kristian Matthew MD When: FRIDAY
--- NOTE | 2017-10-24 11:15 | PCM.DC.SUM ---
Discharge Date and Diagnosis - Problem List Patient Problems: Active and Suspected Problems ST elevation (STEMI) myocardial infarction involving left anterior descending coronary artery (Acute) Coronary artery disease involving [place] coronary artery of [place] heart (Acute) CKD (chronic kidney disease), stage III (Acute) Pulmonary nodule (Acute) Systolic dysfunction without heart failure (Acute) Date of Admission: 10/22/17 Date of Discharge: 10/24/17 - Primary Discharge Diagnosis Active and Suspected Problems ST elevation (STEMI) myocardial infarction involving left anterior descending coronary artery (Acute) Coronary artery disease involving [place] coronary artery of [place] heart (Acute) - Secondary Discharge Diagnosis Mixed hyperlipidemia. Chronic kidney disease, stage III. Systolic dysfunction, EF 35% Hospital Course and Treatment Imaging Results: 10/24/17 07:00 Chest WITH Contrast [CT] Routine CONSULTATION: Dr. Matthew, Dr. Bulolck, cardiology. Operations: None Procedures: 2-D Echocardiogram, Cardiac catheterization Summary of Care Provided: Patient is a 67 years old male with no significant medical problems other than diverticulitis in the past, presents with complaining of chest pain. The chest pain is substernal mid chest pain with some burning quality. He was having chest pain for past 3 days, but the pain was becoming more constant, patient decided to visit ED. At there he had ST elevation of anterior leads, consistent with anterior acute myocardial infarction. Troponin was 1 initially. He was sent to lab tech for emergency PTCA. He was found to have total occlusion of proximal LAD, stent was placed. #1 S/P anterior acute myocardial infarction. S/P PTCA with ESDRAS to LAD. Dual antiplatelet therapy with aspirin and Brilinta. Beta-yaneli and statin were started. #2 LV systolic dysfunction. EF30-35%. Low dose lisinopril and beta yaneli were started. #3 Coronary artery disease. He still has severe residual coronary artery disease in RCA and left circumflex. Cardiology is planning staged intervention at later date. Follow up with Dr. Matthew. #4 LLL pulmonary nodule. Left lung base 8 mm nodule appears larger than previous study. Radiology recommended for dedicated CT. CT of chest was done as recommended. It was suggestive of slight increase in size from previous CT still. Radiology recommended for repeat CT in 6 month. #5 CKD III. Creatinine ranging from 1.22 to 1.39. Chronicity is unclear as we have no previous results. Follow up as outpatient. Encourage oral fluid intake. #6 Mixed hyperlipidemia. LDL 132, TC 253, TG 377, HDL 46. VTE prophylaxis: Lovenox SQ. Patient is full code. Disposition: home Discharge Diet: Low fat/ Low Cholesterol, - Discharge Activity: Return to Normal Activity Home Medications: Medications to take at Discharge Aspirin E.C. [Ecotrin] 81 mg PO DAILY@0800 tablet 10/24/17 Atorvastatin Calcium [Lipitor] 40 mg PO QHS #30 tab 10/24/17 Carvedilol [Coreg] 3.125 mg PO BID #60 tab 10/24/17 Lisinopril [Zestril] 2.5 mg PO DAILY #30 tab 10/24/17 Ticagrelor [Brilinta] 90 mg PO BID #60 tab 10/24/17 Following Prescrptions Were Given to Patient: Atorvastatin Calcium [Lipitor] 40 mg PO QHS #30 tab Lisinopril [Zestril] 2.5 mg PO DAILY #30 tab Carvedilol [Coreg] 3.125 mg PO BID #60 tab Ticagrelor [Brilinta] 90 mg PO BID #60 tab Primary Care Physician: Juan Pierce MD [Primary Care Provider] - Please follow up with your Primary Care Physician in: 2 WEEKS Please Follow Up With: Kristian Matthew MD When: FRIDAY Disposition: Home Patient Condition:: Good Medical Necessity - Tobacco Use Smoking Status: Never smoker Tobacco Use: Non-smoker Meaningful Use Info Meaningful Use Diagnoses (Choose all that apply): AMI - AMI Aspirin given w/in 24hrs of arrival?: Yes ASA at discharge?: Yes Statins at discharge?: Yes All/ARB at discharge?: Yes Beta Yaneli at discharge?: Yes Done w/ Acute MD measure.: Yes Code Visit Inpatient E&M: 11865 Disch Hosp
--- NOTE | 2017-10-24 11:27 | DS.PCM_ITS ---
Discharge Date and Diagnosis - Problem List Patient Problems: Active and Suspected Problems ST elevation (STEMI) myocardial infarction involving left anterior descending coronary artery (Acute) Coronary artery disease involving [place] coronary artery of [place] heart (Acute) CKD (chronic kidney disease), stage III (Acute) Pulmonary nodule (Acute) Systolic dysfunction without heart failure (Acute) Date of Admission: 10/22/17 Date of Discharge: 10/24/17 - Primary Discharge Diagnosis Active and Suspected Problems ST elevation (STEMI) myocardial infarction involving left anterior descending coronary artery (Acute) Coronary artery disease involving [place] coronary artery of [place] heart (Acute) - Secondary Discharge Diagnosis Mixed hyperlipidemia. Chronic kidney disease, stage III. Systolic dysfunction, EF 35% Hospital Course and Treatment Imaging Results: 10/24/17 07:00 Chest WITH Contrast [CT] Routine CONSULTATION: Dr. Matthew, Dr. Bullock, cardiology. Operations: None Procedures: 2-D Echocardiogram, Cardiac catheterization Summary of Care Provided: Patient is a 67 years old male with no significant medical problems other than diverticulitis in the past, presents with complaining of chest pain. The chest pain is substernal mid chest pain with some burning quality. He was having chest pain for past 3 days, but the pain was becoming more constant, patient decided to visit ED. At there he had ST elevation of anterior leads, consistent with anterior acute myocardial infarction. Troponin was 1 initially. He was sent to lab clerk for emergency PTCA. He was found to have total occlusion of proximal LAD, stent was placed. #1 S/P anterior acute myocardial infarction. S/P PTCA with ESDRAS to LAD. Dual antiplatelet therapy with aspirin and Brilinta. Beta-yaneli and statin were started. #2 LV systolic dysfunction. EF30-35%. Low dose lisinopril and beta yaneli were started. #3 Coronary artery disease. He still has severe residual coronary artery disease in RCA and left circumflex. Cardiology is planning staged intervention at later date. Follow up with Dr. Matthew. #4 LLL pulmonary nodule. Left lung base 8 mm nodule appears larger than previous study. Radiology recommended for dedicated CT. CT of chest was done as recommended. It was suggestive of slight increase in size from previous CT still. Radiology recommended for repeat CT in 6 month. #5 CKD III. Creatinine ranging from 1.22 to 1.39. Chronicity is unclear as we have no previous results. Follow up as outpatient. Encourage oral fluid intake. #6 Mixed hyperlipidemia. LDL 132, TC 253, TG 377, HDL 46. VTE prophylaxis: Lovenox SQ. Patient is full code. Disposition: home Discharge Diet: Low fat/ Low Cholesterol, - Discharge Activity: Return to Normal Activity Home Medications: Medications to take at Discharge Aspirin E.C. [Ecotrin] 81 mg PO DAILY@0800 tablet 10/24/17 Atorvastatin Calcium [Lipitor] 40 mg PO QHS #30 tab 10/24/17 Carvedilol [Coreg] 3.125 mg PO BID #60 tab 10/24/17 Lisinopril [Zestril] 2.5 mg PO DAILY #30 tab 10/24/17 Ticagrelor [Brilinta] 90 mg PO BID #60 tab 10/24/17 Following Prescrptions Were Given to Patient: Atorvastatin Calcium [Lipitor] 40 mg PO QHS #30 tab Lisinopril [Zestril] 2.5 mg PO DAILY #30 tab Carvedilol [Coreg] 3.125 mg PO BID #60 tab Ticagrelor [Brilinta] 90 mg PO BID #60 tab Primary Care Physician: Juan Pierce MD [Primary Care Provider] - Please follow up with your Primary Care Physician in: 2 WEEKS Please Follow Up With: Kristian Matthew MD When: FRIDAY Disposition: Home Patient Condition:: Good Medical Necessity - Tobacco Use Smoking Status: Never smoker Tobacco Use: Non-smoker Meaningful Use Info Meaningful Use Diagnoses (Choose all that apply): AMI - AMI Aspirin given w/in 24hrs of arrival?: Yes ASA at discharge?: Yes Statins at discharge?: Yes All/ARB at discharge?: Yes Beta Yaneli at discharge?: Yes Done w/ Acute CA measure.: Yes Code Visit Inpatient E&M: 73203 Disch Hosp
--- NOTE | 2017-10-24 11:39 | CASEMGMT ---
Patient updated on cost of Brilinta per [facility] pharmacy. First month: Free Second month: $347 Third month and continued: $47 Patient and state understanding.
== END 2017-10-24 12:47 | disposition home or self-care (01) | DRG 249 ==
LOC: ED 10:11 → ICU 10:16
PROVIDERS: Admitting Provider Internal Medicine Cardiovascular Disease; Emergency Provider Emergency Medicine; Family Provider Family Medicine; PCP Family Medicine; Visit Provider Hospitalist
DX: I21.02 ST elevation (STEMI) myocardial infarction involving left anterior descending coronary artery (principal); N18.3 Chronic kidney disease, stage 3 (moderate); E66.9 Obesity, unspecified; I25.10 Atherosclerotic heart disease of native coronary artery without angina pectoris; Z68.35 Body mass index [BMI] 35.0-35.9, adult; I51.9 Heart disease, unspecified; R10.13 Epigastric pain; R91.1 Solitary pulmonary nodule; E78.5 Hyperlipidemia, unspecified
CPT/HCPCS: 71260; 74177; 80048; 80053; 80061; 80076; 83690; 84484; 85025; 85027; 85347; 85610; 85730; 87641; 92941; 93005; 93306; 93458; 99152; 99153; 99284; J3010; J7030; Q9967; A4216; C1725; C1757; C1769; C1874; C1887; C1894; C9606; J3490

== ENCOUNTER → 2017-11-25 08:31 | Outpatient (CLI) | payer MEDICARE, SELFPAY ==
[2017-10-22 14:10] VITALS: BMI 34.2
--- NOTE | 2017-11-25 08:38 | PCM.CR.HP2 ---
CR - History & Physical - General Arrival date:: 11/25/17 Arrival time:: 08:38 Date of Referral:: 11/17/17 Date of CR Evaluation:: 11/25/17 Referring Physician: Dr. Kristian Matthew Primary Diagnosis: PCI w/ status post coronary stent placement - History of Present Cardiac Event Onset Date: Enter Onset Date of cardiac illnesses in Comment field below Acute Myocardial Infarction within 12 months:: Yes - STEMI 10/22/2017 PTCA or coronary stenting:: Yes - coronary stent placement 10/22/2017 Type of Symptoms:: chest pain Interventions with present event:: emergency heart cath and stent placement Were there any complications?: none - Medications Home Medications: Ambulatory Orders Medication Instructions Recorded Aspirin E.C. [Ecotrin] 81 mg PO DAILY@0800 tab 10/24/17 carvedilol 3.125 mg tablet 3.125 mg PO ONCE tab 11/14/17 metoprolol succinate ER 25 mg 25 mg PO QDAY #90 tab 11/14/17 tablet,extended release 24 hr pravastatin 20 mg tablet 20 mg PO QHS #90 tab 11/14/17 ticagrelor 90 mg tablet 90 mg PO BID #180 tab 11/14/17 ticagrelor 90 mg tablet 90 mg PO ONCE tab 11/14/17 lisinopril 2.5 mg tablet 2.5 mg PO QDAY #30 tab 11/19/17 - Allergies Allergies/Adverse Reactions: Allergies atorvastatin [From Lipitor] Adverse Reaction (Verified 11/14/17 14:11) myalgias erythromycin base Adverse Reaction (Verified 11/14/17 14:11) Nausea/Vom/Diarrhea rosuvastatin [From Crestor] Adverse Reaction (Verified 11/14/17 14:11) myalgias - Sleep Disorder Evaluation Hx of Sleep Apnea: No Do you snore loudly (louder than talking or can be heard through closed doors)?: Yes Do you often feel tired/ fatigued/ sleepy during daytime?: Yes - sometimes now but believe related to medications Has anyone observed you stop breathing during sleep?: No History of Hypertension (for STOP score): No STOP Results: Positive Advanced Directives - Advanced Directives Power of Jack Frame Tender: No Living Will: No Advance Directives Information Provided: Yes Advance Directives on File: No DNR Order?:: No - MOLST See MOLST form: No Past Medical History - Past Medical Illness Medical History: Past Medical History (Last Reviewed 11/14/17 @ 14:31 by Kristian Matthew MD) Presence of stent in coronary artery (Chronic) Onset Date: ~10/22/17 Z95.5 Aspiration thrombectomy & PTCA/ESDRAS of Prox and Mid LAD 10/22/17 Systolic dysfunction without heart failure (Acute) I51.9 Pulmonary nodule (Acute) R91.1 CKD (chronic kidney disease), stage III (Acute) N18.3 ST elevation (STEMI) myocardial infarction involving left anterior descending coronary artery (Acute) I21.02 Coronary artery disease involving [place] coronary artery of [place] heart (Chronic) I25.10 Aspiration thrombectomy PTCA/ESDRAS of Prox and Mid LAD 10/22/17 Diverticulitis K57.92 - Past Surgical History Surgical History: Past Surgical History (Last Reviewed 11/14/17 @ 14:31 by Kristian Matthew MD) Postsurgical percutaneous transluminal coronary angioplasty (PTCA) status Z98.61 Aspiration thrombectomy & PTCA/ESDRAS of Prox and Mid LAD 10/22/17 Surgical History: no surgical history - Family History Summary Family History: Family History (Last Reviewed 11/14/17 @ 14:31 by Kristian Matthew MD) Mother COPD (chronic obstructive pulmonary disease) Father Diabetes Son Asthma Social History - Smoking History Smoking Status: Never smoker Hx Tobacco Use: No Hx Smoking Exposure: No - Alcohol Use Alcohol Usage: Yes - moderate; beer or two a month if that. 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 Social Environment - Status Marital Status: - Current Living Arrangements Living Environment:: Spouse - Children How many children do you have?: 2 Do any of your children live nearby?: Yes - at home and away at college - Safety Do you feel safe in your surroundings?: Yes - Assistance Do you need any assistance at home?: none Review of Systems - Review of Systems Hints: Right click = Denies (Slash). Left click = Reports ([place]) Review of Present Symptoms: Reports: Shortness of Breath with Exertion, Fatigue, Appetite - Normal, Appetite - Special Diet - heart healthy diet, low fats low cholesterol low sodium.. Denies: Shortness of Breath at Rest, Angina, Dizziness/Lightheadedness, Heart Arrhythmia/Irregularities, Sleep - Normal - irregular since started on some medications. Drug combination has interuppted sleep. Now takign a benadryl at night before bed. - Pain Is Patient Pain Free?: No Risk Factor Assessment - Chief Complaint Chief Complaint: Patient is a pleasant 67 yr old male who presents to cardiac rehab under the care of Dr.Cyril Matthew following recent STEMI and stent procedure in September. - Vital Signs Temperature: 98.7 F Respiratory Rate: 16 Pulse Ox: 96 - room air Blood Pressure: 124/78 Nailbeds:: pink - Pulse Pulse Rate: 78 Pulse Rhythm: Regular - Hypertension How long have you been treated?: unknown since STEMI On medication(s)?: yes Blood Pressure Sitting - Left Arm: 124/78 - Stress Stress: Recent, Home/Family - alot going on right now, mother health issues, mine etc., - - Life - Blood Cholesterol/Lipids Total Cholesterol (mg/dL) Goal = less than 200 mg/dL: 253 HDL Cholesterol (mg/dL) Goal = less than 40 mg/dL: 46 LDL Cholesterol (mg/dL) Goal = less than 70 mg/dL: 132 Triglycerides (mg/dL) Goal = less than 150 mg/dL: 377 - Diabetes Nutrition Referral for Diabetes: No - Obesity Height: 5 ft 9 in Weight:: 220 lb - lost 18# since event! 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 - Risk Stratification Risk Guidelines: Lowest Risk: Risk Factor for Smoking, Risk Factor for Diabetes, Risk Factor for Hypertension, Risk Factor for Sedentary Lifestyle, Risk Factor for Depression, Moderate Risk: Risk Factor for Dyslipidemia, Highest Risk: Risk Factor for Obesity - For Smoking Smoking Risk Guidelines: Smoking Low Risk: None or quit greater than 6 months ago. Smoking Moderate Risk: Smoker or quit 6 months or less ago. Smoking High Risk: Smoker - For Dyslipidemia Dyslipidemia Risk Guidelines: Low Risk: Moderate Risk: High Risk: 15-25% fat 25.1-29% fat >/= 30% fat. <7% sat fat 7-9% sat fat >9% sat fat. <150 mg chol 150-299 mg chol >/= 300 mg chol. LDL <100 LDL 100-129 LDL >/= 130. Chol/HDL ratio <5.0 Chol/HDL ratio 5.0-6.0 Chol/HDL ratio >6.0. Triglycerides <100 Triglycerides 100-149 Triglycerides >/= 150 - For Diabetes Mellitus Diabetes Risk Guidelines: Diabetes Low Risk: HgA1c <6.5% and/or FBG <120. Diabetes Moderate Risk: HgA1c 6.6-7.9% and/or FBG 120-180. Diabetes High Risk: HgA1c >/= 8% and/or FBG >180 - For Obesity/Overweight Obesity/Overweight Risk Guidelines: Obesity Low Risk: BMI <25.0. Obesity Moderate Risk: BMI 25-29.9. Obesity High Risk: BMI >/= 30.0 - For Hypertension Hypertension Risk Guidelines: Hypertension Low Risk: Systolic <120 and Diastolic <80. Hypertension Moderate Risk: Systolic 120-139 and Diastolic 80-89. Hypertension High Risk: Systolic >/= 140 and Diastolic >/= 90 - For Sedentary Lifestyle Sedentary Lifestyle Risk Guidelines: Sedentary Lifestyle Low Risk: >/= 1,500 kcal/week. Sedentary Lifestyle Moderate Risk: 700-1,499 kcal/week. Sedentary Lifestyle High Risk: < 700 kcal/week - For Depression Depression Risk Guidelines: Depression Low Risk: Not clinically depressed. Depression Moderate Risk: Mildly depressed. Depression High Risk: Clinically depressed - Family History Family History: Family History (Last Reviewed 11/14/17 @ 14:31 by Kristian Matthew MD) Mother COPD (chronic obstructive pulmonary disease) Father Diabetes Son Asthma Motivation - Motivation to Participate On a scale of 1 to 10, how prepared are you to commit to attending program?: 8 - get to [facility] to have other stents done. What do you see as barriers to successfully being able to complete the program?: left achilles tendon issue What do you see as the benefits of succesfully completing the program? In other words, what do you hope to get out of participating in the program?: get these other stents taken care of. Are there issues you are dealing with that will interfere with completing the program?: mother health issues and business Do you have a spouse or signficant other, family or friends who will help support you to complete the program?: yes.
--- NOTE | 2017-11-25 08:48 | CR.HP_ITS ---
CR - History & Physical - General Arrival date:: 11/25/17 Arrival time:: 08:38 Date of Referral:: 11/17/17 Date of CR Evaluation:: 11/25/17 Referring Physician: Dr. Kristian Matthew Primary Diagnosis: PCI w/ status post coronary stent placement - History of Present Cardiac Event Onset Date: Enter Onset Date of cardiac illnesses in Comment field below Acute Myocardial Infarction within 12 months:: Yes - STEMI 10/22/2017 PTCA or coronary stenting:: Yes - coronary stent placement 10/22/2017 Type of Symptoms:: chest pain Interventions with present event:: emergency heart cath and stent placement Were there any complications?: none - Medications Home Medications: Ambulatory Orders Medication Instructions Recorded Aspirin E.C. [Ecotrin] 81 mg PO DAILY@0800 tab 10/24/17 carvedilol 3.125 mg tablet 3.125 mg PO ONCE tab 11/14/17 metoprolol succinate ER 25 mg 25 mg PO QDAY #90 tab 11/14/17 tablet,extended release 24 hr pravastatin 20 mg tablet 20 mg PO QHS #90 tab 11/14/17 ticagrelor 90 mg tablet 90 mg PO BID #180 tab 11/14/17 ticagrelor 90 mg tablet 90 mg PO ONCE tab 11/14/17 lisinopril 2.5 mg tablet 2.5 mg PO QDAY #30 tab 11/19/17 - Allergies Allergies/Adverse Reactions: Allergies atorvastatin [From Lipitor] Adverse Reaction (Verified 11/14/17 14:11) myalgias erythromycin base Adverse Reaction (Verified 11/14/17 14:11) Nausea/Vom/Diarrhea rosuvastatin [From Crestor] Adverse Reaction (Verified 11/14/17 14:11) myalgias - Sleep Disorder Evaluation Hx of Sleep Apnea: No Do you snore loudly (louder than talking or can be heard through closed doors)? : Yes Do you often feel tired/ fatigued/ sleepy during daytime?: Yes - sometimes now but believe related to medications Has anyone observed you stop breathing during sleep?: No History of Hypertension (for STOP score): No STOP Results: Positive Advanced Directives - Advanced Directives Power of Quality Control Director: No Living Will: No Advance Directives Information Provided: Yes Advance Directives on File: No DNR Order?:: No - MOLST See MOLST form: No Past Medical History - Past Medical Illness Medical History: Past Medical History (Last Reviewed 11/14/17 @ 14:31 by Kristian Matthew MD) Presence of stent in coronary artery (Chronic) Onset Date: ~10/22/17 Z95.5 Aspiration thrombectomy & PTCA/ESDRAS of Prox and Mid LAD 10/22/17 Systolic dysfunction without heart failure (Acute) I51.9 Pulmonary nodule (Acute) R91.1 CKD (chronic kidney disease), stage III (Acute) N18.3 ST elevation (STEMI) myocardial infarction involving left anterior descending coronary artery (Acute) I21.02 Coronary artery disease involving [place] coronary artery of [place] heart ( Chronic) I25.10 Aspiration thrombectomy PTCA/ESDRAS of Prox and Mid LAD 10/22/17 Diverticulitis K57.92 - Past Surgical History Surgical History: Past Surgical History (Last Reviewed 11/14/17 @ 14:31 by Kristian Matthew MD) Postsurgical percutaneous transluminal coronary angioplasty (PTCA) status Z98.61 Aspiration thrombectomy & PTCA/ESDRAS of Prox and Mid LAD 10/22/17 Surgical History: no surgical history - Family History Summary Family History: Family History (Last Reviewed 11/14/17 @ 14:31 by Kristian Matthew MD) Mother COPD (chronic obstructive pulmonary disease) Father Diabetes Son Asthma Social History - Smoking History Smoking Status: Never smoker Hx Tobacco Use: No Hx Smoking Exposure: No - Alcohol Use Alcohol Usage: Yes - moderate; beer or two a month if that. 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 Social Environment - Status Marital Status: - Current Living Arrangements Living Environment:: Spouse - Children How many children do you have?: 2 Do any of your children live nearby?: Yes - at home and away at college - Safety Do you feel safe in your surroundings?: Yes - Assistance Do you need any assistance at home?: none Review of Systems - Review of Systems Hints: Right click = Denies (Slash). Left click = Reports ([place]) Review of Present Symptoms: Reports: Shortness of Breath with Exertion, Fatigue , Appetite - Normal, Appetite - Special Diet - heart healthy diet, low fats low cholesterol low sodium.. Denies: Shortness of Breath at Rest, Angina, Dizziness /Lightheadedness, Heart Arrhythmia/Irregularities, Sleep - Normal - irregular since started on some medications. Drug combination has interuppted sleep. Now takign a benadryl at night before bed. - Pain Is Patient Pain Free?: No Risk Factor Assessment - Chief Complaint Chief Complaint: Patient is a pleasant 67 yr old male who presents to cardiac rehab under the care of Dr.Cyril Matthew following recent STEMI and stent procedure in September. - Vital Signs Temperature: 98.7 F Respiratory Rate: 16 Pulse Ox: 96 - room air Blood Pressure: 124/78 Nailbeds:: pink - Pulse Pulse Rate: 78 Pulse Rhythm: Regular - Hypertension How long have you been treated?: unknown since STEMI On medication(s)?: yes Blood Pressure Sitting - Left Arm: 124/78 - Stress Stress: Recent, Home/Family - alot going on right now, mother health issues, mine etc., - - Life - Blood Cholesterol/Lipids Total Cholesterol (mg/dL) Goal = less than 200 mg/dL: 253 HDL Cholesterol (mg/dL) Goal = less than 40 mg/dL: 46 LDL Cholesterol (mg/dL) Goal = less than 70 mg/dL: 132 Triglycerides (mg/dL) Goal = less than 150 mg/dL: 377 - Diabetes Nutrition Referral for Diabetes: No - Obesity Height: 5 ft 9 in Weight:: 220 lb - lost 18# since event! 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 - Risk Stratification Risk Guidelines: Lowest Risk: Risk Factor for Smoking, Risk Factor for Diabetes , Risk Factor for Hypertension, Risk Factor for Sedentary Lifestyle, Risk Factor for Depression, Moderate Risk: Risk Factor for Dyslipidemia, Highest Risk : Risk Factor for Obesity - For Smoking Smoking Risk Guidelines: Smoking Low Risk: None or quit greater than 6 months ago. Smoking Moderate Risk: Smoker or quit 6 months or less ago. Smoking High Risk: Smoker - For Dyslipidemia Dyslipidemia Risk Guidelines: Low Risk: Moderate Risk: High Risk: 15-25% fat 25.1-29% fat >/= 30% fat. <7% sat fat 7-9% sat fat >9% sat fat. <150 mg chol 150-299 mg chol >/= 300 mg chol. LDL <100 LDL 100-129 LDL >/= 130. Chol/HDL ratio <5.0 Chol/HDL ratio 5.0-6.0 Chol/HDL ratio >6.0. Triglycerides <100 Triglycerides 100-149 Triglycerides >/= 150 - For Diabetes Mellitus Diabetes Risk Guidelines: Diabetes Low Risk: HgA1c <6.5% and/or FBG <120. Diabetes Moderate Risk: HgA1c 6.6-7.9% and/or FBG 120-180. Diabetes High Risk: HgA1c >/= 8% and/or FBG >180 - For Obesity/Overweight Obesity/Overweight Risk Guidelines: Obesity Low Risk: BMI <25.0. Obesity Moderate Risk: BMI 25-29.9. Obesity High Risk: BMI >/= 30.0 - For Hypertension Hypertension Risk Guidelines: Hypertension Low Risk: Systolic <120 and Diastolic <80. Hypertension Moderate Risk: Systolic 120-139 and Diastolic 80-89. Hypertension High Risk: Systolic >/= 140 and Diastolic >/= 90 - For Sedentary Lifestyle Sedentary Lifestyle Risk Guidelines: Sedentary Lifestyle Low Risk: >/= 1 ,500 kcal/week. Sedentary Lifestyle Moderate Risk: 700-1,499 kcal/week. Sedentary Lifestyle High Risk: < 700 kcal/week - For Depression Depression Risk Guidelines: Depression Low Risk: Not clinically depressed. Depression Moderate Risk: Mildly depressed. Depression High Risk: Clinically depressed - Family History Family History: Family History (Last Reviewed 11/14/17 @ 14:31 by Kristian Matthew MD) Mother COPD (chronic obstructive pulmonary disease) Father Diabetes Son Asthma Motivation - Motivation to Participate On a scale of 1 to 10, how prepared are you to commit to attending program?: 8 - get to [facility] to have other stents done. What do you see as barriers to successfully being able to complete the program? : left achilles tendon issue What do you see as the benefits of succesfully completing the program? In other words, what do you hope to get out of participating in the program?: get these other stents taken care of. Are there issues you are dealing with that will interfere with completing the program?: mother health issues and business Do you have a spouse or signficant other, family or friends who will help support you to complete the program?: yes.
--- NOTE | 2017-11-25 08:55 | CR.ITP_ITS ---
General Information - General Information Admitting Diagnosis: STEMI f/b emergency PCI intervention w/coronary stent placement - Education/Goals Barriers to Learning: Vision Impairment - reading glasses Individual Counseling: Initial Assessment: Abnormal Cholesterol Levels, High Blood Pressure, Overweight/Obesity, Hypertension Cardiac Rehabilitation Goals: 1. Maintain the individual as the primary focus of care. 2. To improve the patient's quality of life. 3. Identification of cardiac risk factors and provide cardiac risk factor management. 4. Enhance the psychosocial status of the patient. 5. Reconditioning enough to allow the patient to resume customary activities. 6. Control symptoms of cardiac disease Scale for measuring improvement of personal goals: Enter appropriate number in Comments. 2 = Unchanged. 3 = Slightly Better. 4 = Moderate Improvement. 5 = Met my Goal Personal Goals: Initial Assessment: Improve energy level, Improve knowledge of cardiac disease, Improve muscle strength and endurance, Improve diet and eating habits (eat healthier), Control risk factors (learn risk factor modification) Exercise - Initial Assessment - Visit Date of Eval: 11/25/17 Session #:: 0 - established ITP start date 11/26/17 - Stages of Change Stages of Change:: Action - Exercise Prescription Mode:: Treadmill, Rower, Airdyne, NuStep Angina with exercise?: No - Hypertension Do any of the following apply?: Yes Resting Blood Pressure:: 124/78 - Intervention Home Exercise/Activity Goal:: Moderate Exercise 30 min/day x 5 days/wk - Education Goals:: Warm-up, RPE ANA Scale, S/S, Safe Exercise, Self-Monitoring - Exercise Program Goals Exercise Program Goals: Aerobic Activity >30 min Nutrition - Initial Assessment - Program Goals Nutrition Program Goals: LDL <70. Total Cholesterol <200. HDL >45. Triglycerides <150. HgbA1C <7%. BMI <25 - Visit Date of Assessment:: 11/25/17 - established ITP start date 11/26/2017 - Stages of Change Stages of Change:: Action - Lipids Total Cholesterol (mg/dL) Goal = less than 200 mg/dL: 253 HDL Cholesterol (mg/dL) Goal = less than 45 mg/dL: 46 LDL Cholesterol (mg/dL) Goal = less than 70 mg/dL: 132 Triglycerides (mg/dL) Goal = less than 150 mg/dL: 377 - Diabetes Diabetes:: No Insulin: No Non-Insulin Dependent?: No Do you monitor your blood sugar at home?: No - Weight Management Height: 5 ft 9 in Weight:: 220 lb - lost 18 pounds! Body Fat %:: 34.1 - Intervention Referral to dietitian:: Yes Referral to Diabetic Clinic:: No Will attend diet classes:: Yes - Education Gave educational materials for:: Healthy eating Tobacco - Initial Assessment - Program Goals Tobacco Program Goals: Complete smoking cessation. Attend education classes. Improve Knowledge Test score - Stage of Change Stages of Change:: Action - Learning Barriers Learning Barriers: Vision - requires reading glasses, Ready to Learn - Family Support Do you have family support?: Yes - Intervention Smoking Cessation Referral:: No Individual Education/Counseling:: No Education Schedule Given:: Yes - Education Gave educational material for:: Coronary artery disease, Risk factors, Sexuality , Medical compliance, Cardiac A&P, Angina signs & symptoms Psychosocial - Initial Assess - Target Goals Target Goals: Assess presence or absence of depression. Using a valid screening tool, maximizes coping skills. Positive support system - Stages of Change Stages of Change:: Action - Psychosocial Test Tool Used:: HANDS Depression Questionnaire - Intervention PS - Interventions: Yes Attend Stress Management Classes, No Referral to Mental Health, No Referral to [facility] Case Management, No Referral to Physician, No Uses Stress Management Skills - Education Gave educational materials for:: Coping techniques, Signs & symptoms of depression, Stress management, Relaxation techniques - Patient/Program Goal Preventative Medication(s):: Aspirin, Clopidogrel, Statin/lipid - Assistive Devices Assistive Devices:: None Fall Risk Assessed:: Yes Patient Health Questionnaire Initial Assessment 1. Little interest or pleasure in doing things: Not at all 2. Feeling down, depressed, or hopeless: Several days 3. Trouble falling or staying asleep, or sleeping too much: Several days 4. Feeling tired or having little energy: Several days 5. Poor appetite or overeating: Not at all 6. Feeling bad about yourself -- or that you are a failure or have let yourself or your family down: Not at all 7. Trouble concentrating on things, such as reading the newspaper or watching television: Not at all 8. Moving or speaking so slowly that other people could have noticed. Or the opposite - being so fidgety or restless that you have been moving around a lot more than usual: Several days 9. Thoughts that you would be better off , or of hurting yourself in some way: Not at all How difficult have these problems made it for you to do your work, take care of things at home, or get along with other people?: Not difficult at all Total Score: 4 ROLAND-Q SV Test - Statements CAD is a disease of the arteries in the heart: True Examples of risk factors for heart disease: True Angina is chest pain or discomfort: False The benefits of resistance training include: True Eating more meat and dairy products: False Anti-platelet medications such as aspirin are important: True The only effective way to manage stress: False An exercise warm-up slowly increases heart rate: True Prepared, processed foods usually have high sodium: True Depression is common after a heart attack: True The statin medications lower cholesterol: True To control blood pressure, lower the amount of sodium: True If someone gets chest discomfort during walking: False Transfats are partially hydrogenated vegetable oils: True Sleep apnea that is not treated increases the risk: False To control cholesterol, one should become a vegetarian: False Someone knows if he/she is exercising at the right level: True Diabetes cannot be prevented with exercise & health eating: False Stress is a large risk for heart attack: True A diet that can help lower blood pressure is rich in: True - Total Score Total Correct Responses: 18 Self-Efficacy Initial Assessment We would like to know how confident you are in doing certain activities. Please select your confidence level for:: Select your confidence level for the following using the scale 1-10 where 1 is not at all confident and 10 is totally confident. Your score is the average of all 6 responses. Fatigue: How confident are you that you can keep the fatigue caused by your disease from interfering with the things you want to do? Select Number: 8 Physical Discomfort or Pain: How confident are you that you can keep the physical discomfort or pain of your disease from interfering with the things you want to do? Select Number: 8 Emotional Distress: How confident are you that you can keep the emotional distress caused by your disease from interfering with the things you want to do? Select Number: 8 Other Symptoms or Health Problems: How confident are you that you can keep other symptoms or health problems from interfering with the things you want to do? Select Number: 8 Different Tasks and Activities: How confident are you that you can do the different tasks and activities needed to manage your health condition so as to reduce your need to see a doctor? Select Number: 10 Medication: How confident are you that you can do things other than just taking medication to reduce how much your illness affects your everyday life? Select Number: 10 Total Score:: 8 Nutrition Survey - Nutrition Survey Instructions Scoring Instructions: Scoring is as follows: Yes = 1 points. No = 0 point. Patient score that is >/=12 is considered to be at potential nutritional risk and could benefit from a referral to a registered dietitian. - Nutrition Survey Initial Have you lost >10 lbs over the past 2 months without trying?: Yes Are you following a special diet at home for diabetes, low fat, or low salt?: Yes Are you interested in meeting with a dietitian for help understanding your diet? : No Do you eat less than 3 meals a day?: No Do you eat fatty meats (merlos, sausage, ribs, etc), fried foods, desserts, large amounts of salad dressings, margarine, butter, or cheese most days?: No Do you have food allergies? [Enter types in comment field]: No Do you eat in restaurants more than 3 times a week?: No Do you season food with salt, seasoning salt, or garlic salt?: No Do you used canned, boxed, frozen meals, or soups, seasoning packets?: No Total Score:: 2
[2017-11-25 08:59] VITALS: BP 124/78; PULSE 78; RESP 16; TEMP 37.1; O2SAT 96; BMI 32.5
[2017-11-25 09:31] VITALS: BP 124/78
== END ==
PROVIDERS: Family Provider Family Medicine; PCP Family Medicine; Visit Provider Internal Medicine Cardiovascular Disease
DX: Z95.5 Presence of coronary angioplasty implant and graft (principal)

== ENCOUNTER → 2017-12-08 06:42 | Outpatient (CLI) | payer MEDICARE, OTHER, SELFPAY ==
[2017-10-22 14:10] VITALS: BMI 34.2
--- NOTE | 2017-12-08 15:09 | STRESSREP ---
Stress Test Report Exercise myocardial perfusion stress test. 67-year-old man with a history of coronary artery disease. Medications aspirin lisinopril Brilinta pravastatin Toprol. Stress protocol: Resting EKG demonstrates sinus bradycardia with a rate of 53 bpm T-wave inversions noted anteriorly. Resting blood pressure is 122/88 mmHg. The patient exercised according to regular Beny protocol for total duration of 8 minutes. He completed 2 minutes into stage III of the Beny protocol. The maximum heart rate attained was 121 bpm which was 78% maximum predicted heart rate the maximum workload was 10.1 metabolic equivalents. The patient maintained sinus rhythm throughout the recording. At rest there were no ST or T-wave changes noted suggest ischemia there was T-wave inversions noted anteriorly this persisted throughout the test. No clinical angina was noted the test was terminated due to mild shortness of breath. There were no ST or T-wave changes noted suggest ischemia and no arrhythmias were noted the resting blood pressure is 122/88 with a peak blood pressure 158/86. Myocardial perfusion protocol: 14.5 mCi of technetium 99m sestamibi was injected at rest. The patient exercised according to regular Beny protocol for total duration of 8 minutes attaining 78% of maximum predicted heart rate. Patient is on a beta-donna. At peak exercise 44.5 mCi of technetium 99m sestamibi was injected stress images were obtained stress and rest images were reconstructed and compared in the short axis vertical long and horizontal long axis. Gated images were also obtained Perfusion SPECT analysis: Review of the stress images demonstrate an extensive area of anterior infarct extending to the apex on the stress and rest images to a similar extent. The inferior wall also demonstrates a previous infarct. The lateral wall appears to be well perfused and is normal. No improvement is noted to suggest ischemia. Gated SPECT analysis: The gated ejection fraction is noted to be 45%. Conclusion: Exercise stress test with no evidence of ischemia noted at a high workload of 10.1 metabolic equivalents. 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 Good functional capacity. Mild cardiomyopathy present.
--- NOTE | 2017-12-08 15:14 | STRESSREP_ITS ---
Stress Test Report Exercise myocardial perfusion stress test. 67-year-old man with a history of coronary artery disease. Medications aspirin lisinopril Brilinta pravastatin Toprol. Stress protocol: Resting EKG demonstrates sinus bradycardia with a rate of 53 bpm T-wave inversions noted anteriorly. Resting blood pressure is 122/88 mmHg. The patient exercised according to regular Beny protocol for total duration of 8 minutes. He completed 2 minutes into stage III of the Beny protocol. The maximum heart rate attained was 121 bpm which was 78% maximum predicted heart rate the maximum workload was 10.1 metabolic equivalents. The patient maintained sinus rhythm throughout the recording. At rest there were no ST or T -wave changes noted suggest ischemia there was T-wave inversions noted anteriorly this persisted throughout the test. No clinical angina was noted the test was terminated due to mild shortness of breath. There were no ST or T- wave changes noted suggest ischemia and no arrhythmias were noted the resting blood pressure is 122/88 with a peak blood pressure 158/86. Myocardial perfusion protocol: 14.5 mCi of technetium 99m sestamibi was injected at rest. The patient exercised according to regular Beny protocol for total duration of 8 minutes attaining 78% of maximum predicted heart rate. Patient is on a beta-donna. At peak exercise 44.5 mCi of technetium 99m sestamibi was injected stress images were obtained stress and rest images were reconstructed and compared in the short axis vertical long and horizontal long axis. Gated images were also obtained Perfusion SPECT analysis: Review of the stress images demonstrate an extensive area of anterior infarct extending to the apex on the stress and rest images to a similar extent. The inferior wall also demonstrates a previous infarct. The lateral wall appears to be well perfused and is normal. No improvement is noted to suggest ischemia. Gated SPECT analysis: The gated ejection fraction is noted to be 45%. Conclusion: Exercise stress test with no evidence of ischemia noted at a high workload of 10.1 metabolic equivalents. 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 Good functional capacity. Mild cardiomyopathy present.
== END ==
PROVIDERS: Family Provider Family Medicine; PCP Family Medicine; Visit Provider Internal Medicine Cardiovascular Disease
DX: I25.10 Atherosclerotic heart disease of native coronary artery without angina pectoris (principal)
CPT/HCPCS: 78452; 93017; A9500; A4216

== ENCOUNTER 2017-12-24 11:30 | Outpatient (RCR) | payer MEDICARE, OTHER, SELFPAY ==
[2017-10-22 14:10] VITALS: BMI 34.2
--- NOTE | 2017-12-17 10:39 | CR.ITP_ITS ---
General Information - General Information Admitting Diagnosis: PCI with coronary stenting - Education/Goals Barriers to Learning: None, Vision Impairment Individual Counselin-Day Assessment: Abnormal Cholesterol Levels, High Blood Pressure, Overweight/Obesity, Hypertension Cardiac Rehabilitation Goals: 1. Maintain the individual as the primary focus of care. 2. To improve the patient's quality of life. 3. Identification of cardiac risk factors and provide cardiac risk factor management. 4. Enhance the psychosocial status of the patient. 5. Reconditioning enough to allow the patient to resume customary activities. 6. Control symptoms of cardiac disease Scale for measuring improvement of personal goals: Enter appropriate number in Comments. 2 = Unchanged. 3 = Slightly Better. 4 = Moderate Improvement. 5 = Met my Goal Personal Goals: 30-day Re-assessment: Improve energy level, Improve knowledge of cardiac disease, Improve muscle strength and endurance, Improve diet and eating habits (eat healthier) Exercise - 30-day Assessment - Visit Date of Eval: 12/17/17 Session #:: 8 - Stages of Change Stages of Change:: Contemplate - Exercise Prescription Mode:: Treadmill, Airdyne, NuStep Frequency (x/week): 3 Duration:: 30 METs - Progression: 0.5-1 MET as tolerated: 3.5 Target Heart Rate:: 116-124 - Hypertension Resting Blood Pressure:: 96/68 - 17% MET increase Peak Exercise Blood Pressure:: 98/64 Medication Changes:: No - Intervention Home Exercise/Activity Goal:: Sitting Time <3 hrs/day - Education Goals:: Warm-up, RPE ANA Scale, S/S, Safe Exercise, Self-Monitoring - Exercise Program Goals Exercise Program Goals: Aerobic Activity >30 min, B/P <130/80 Nutrition - Initial Assessment - Program Goals Nutrition Program Goals: LDL <70. Total Cholesterol <200. HDL >45. Triglycerides <150. HgbA1C <7%. BMI <25 - Diabetes Do you monitor your blood sugar at home?: No Nutrition - 30-Day Assessment - Program Goals Nutrition Program Goals: LDL <70. Total Cholesterol <200. HDL >45. Triglycerides <150. HgbA1C <7%. BMI <25 - Visit Date of Eval: 12/17/17 - Stages of Change Stages of Change:: Contemplate - Lipids Has the patient seen the dietitian?: No - Diabetes Diabetes:: No - Weight Management Weight:: 100.698 kg - Intervention Referral to dietitian:: No Referral to Diabetic Clinic:: No Will attend diet classes:: Yes - Education Attended class for:: Signs & symptoms of hypoglycemia, Signs & symptoms of hyperglycemia, Relate diabetes to coronary artery disease, Healthy eating Tobacco - Initial Assessment - Program Goals Tobacco Program Goals: Complete smoking cessation. Attend education classes. Improve Knowledge Test score - Learning Barriers Learning Barriers: Vision - requires reading glasses, Ready to Learn Tobacco - 30-Day Assessment - Program Goals Tobacco Program Goals: Complete smoking cessation. Attend education classes. Improve Knowledge Test score - Stage of Change Stages of Change:: Contemplate - Learning Barriers Learning Barriers: Participates in education - Family Support Do you have family support?: Yes - Tobacco Use Tobacco Use: Non-smoker Do you use smokeless tobacco?: No - Intervention Smoking Cessation Referral:: No Individual Education/Counseling:: No Education Schedule Given:: Yes - Education Attended class for:: Tobacco triggers, Coronary artery disease, Risk factors, Sexuality, Medical compliance, Cardiac A&P, Angina signs & symptoms Psychosocial - Initial Assess - Target Goals Target Goals: Assess presence or absence of depression. Using a valid screening tool, maximizes coping skills. Positive support system - Psychosocial Test Tool Used:: HANDS Depression Questionnaire - Assistive Devices Fall Risk Assessed:: Yes Psychosocial - 30-Day Assess - Target Goals Target Goals: Assess presence or absence of depression. Using a valid screening tool, maximizes coping skills. Positive support system - Stages of Change Stages of Change:: Contemplate - Psychosocial Test Tool Used:: HANDS Depression Questionnaire - Intervention PS - Interventions: Yes Attend Stress Management Classes, Yes Uses Stress Management Skills, No Referral to Mental Health, No Referral to [facility] Case Management, No Referral to Physician - Education Attended classes for:: Coping techniques, Signs & symptoms of depression, Stress management, Relaxation techniques - Assistive Devices Assistive Devices:: None Fall Risk Assessed:: Yes Patient Health Questionnaire 30-Day Re-eval Assessment 2. Feeling down, depressed, or hopeless: Not at all 3. Trouble falling or staying asleep, or sleeping too much: Not at all 4. Feeling tired or having little energy: Not at all 5. Poor appetite or overeating: Not at all 6. Feeling bad about yourself -- or that you are a failure or have let yourself or your family down: Not at all 7. Trouble concentrating on things, such as reading the newspaper or watching television: Not at all 8. Moving or speaking so slowly that other people could have noticed. Or the opposite - being so fidgety or restless that you have been moving around a lot more than usual: Not at all 9. Thoughts that you would be better off , or of hurting yourself in some way: Not at all How difficult have these problems made it for you to do your work, take care of things at home, or get along with other people?: Not difficult at all Total Score: 0 Self-Efficacy 30-Day Re-eval Assessment We would like to know how confident you are in doing certain activities. Please select your confidence level for:: Select your confidence level for the following using the scale 1-10 where 1 is not at all confident and 10 is totally confident. Your score is the average of all 6 responses. Fatigue: How confident are you that you can keep the fatigue caused by your disease from interfering with the things you want to do? Select Number: 9 Physical Discomfort or Pain: How confident are you that you can keep the physical discomfort or pain of your disease from interfering with the things you want to do? Select Number: 9 Emotional Distress: How confident are you that you can keep the emotional distress caused by your disease from interfering with the things you want to do? Select Number: 9 Other Symptoms or Health Problems: How confident are you that you can keep other symptoms or health problems from interfering with the things you want to do? Select Number: 9 Different Tasks and Activities: How confident are you that you can do the different tasks and activities needed to manage your health condition so as to reduce your need to see a doctor? Select Number: 10 Medication: How confident are you that you can do things other than just taking medication to reduce how much your illness affects your everyday life? Select Number: 10 Total Score:: 9
[2017-12-17 10:40] VITALS: BP 96/68; BP 98/64
== END 2017-12-25 23:59 ==
LOC: CR 11:30
PROVIDERS: Family Provider Family Medicine; PCP Family Medicine; Visit Provider Internal Medicine Cardiovascular Disease
DX: I21.02 ST elevation (STEMI) myocardial infarction involving left anterior descending coronary artery (principal); I25.10 Atherosclerotic heart disease of native coronary artery without angina pectoris
CPT/HCPCS: 93798

== ENCOUNTER → 2018-01-13 09:48 | Outpatient (CLI) | payer MEDICARE, OTHER, SELFPAY ==
[2017-10-22 14:10] VITALS: BMI 34.2
[2018-01-13 11:26] LABS: AST(SGOT) 16 U/L (15-37); Alanine Aminotransfer ALT/SGPT 18 U/L (16-61); Albumin, Serum 3.5 g/dL (3.2-5.0); Alkaline Phosphatase 60 U/L (45-117); Bilirubin, Direct 0.14 mg/dL (0.00-0.30); Cholesterol 140 mg/dL (200); Globulin 3.8 g/dL (2.2-4.2); High Density Lipoprotein 46 mg/dL; Protein, Total 7.3 g/dL (6.4-8.2); Triglycerides 113 mg/dL; Very Low Density Lipoprotein 23 mg/dL (5-40)
== END ==
PROVIDERS: Family Provider Family Medicine; PCP Family Medicine; Visit Provider Internal Medicine Cardiovascular Disease
DX: E78.5 Hyperlipidemia, unspecified (principal)
CPT/HCPCS: 36415; 80061; 80076

== ENCOUNTER 2018-01-21 11:30 | Outpatient (RCR) | payer MEDICARE, OTHER, SELFPAY ==
[2017-10-22 14:10] VITALS: BMI 34.2
[2017-12-26 01:04] VITALS: BP 96/68; BP 98/64
[2018-01-16 13:53] VITALS: BP 120/70; BP 90/62
--- NOTE | 2018-01-16 13:53 | CR.ITP_ITS ---
General Information - General Information Admitting Diagnosis: PCI with coronary artery stenting - Education/Goals Barriers to Learning: Vision Impairment Individual Counselin-Day Assessment: Abnormal Cholesterol Levels, High Blood Pressure, Overweight/Obesity Cardiac Rehabilitation Goals: 1. Maintain the individual as the primary focus of care. 2. To improve the patient's quality of life. 3. Identification of cardiac risk factors and provide cardiac risk factor management. 4. Enhance the psychosocial status of the patient. 5. Reconditioning enough to allow the patient to resume customary activities. 6. Control symptoms of cardiac disease Scale for measuring improvement of personal goals: Enter appropriate number in Comments. 2 = Unchanged. 3 = Slightly Better. 4 = Moderate Improvement. 5 = Met my Goal Personal Goals: 60-day Re-assessment: Improve energy level, Improve muscle strength and endurance, Improve diet and eating habits (eat healthier) Exercise - 60-Day Assessment - Visit Date of Eval: 01/16/18 Session #:: 17 - 89.47% compliance - Stages of Change Stages of Change:: Action - Exercise Prescription Mode:: Treadmill, Rower, NuStep Frequency (x/week): 3 Duration:: 30 METs: 5 mets 67% increase Target Heart Rate:: 116-124 max 100 - Hypertension Resting Blood Pressure:: 90/62 Peak Exercise Blood Pressure:: 120/70 Medication Changes:: No - Intervention Home Exercise/Activity Goal:: Sitting Time <3 hrs/day - Education Goals:: Warm-up, RPE ANA Scale, S/S, Safe Exercise, Self-Monitoring - Exercise Program Goals Exercise Program Goals: Aerobic Activity >30 min, B/P <130/80 Nutrition - Initial Assessment - Program Goals Nutrition Program Goals: LDL <70. Total Cholesterol <200. HDL >45. Triglycerides <150. HgbA1C <7%. BMI <25 - Diabetes Do you monitor your blood sugar at home?: No Nutrition - 60-Day Assessment - Program Goals Nutrition Program Goals: LDL <70. Total Cholesterol <200. HDL >45. Triglycerides <150. HgbA1C <7%. BMI <25 - Visit Date of Eval: 01/16/18 - Stages of Change Stages of Change:: Action - Lipids Has the patient seen the dietitian?: No - Diabetes Diabetes:: No - Weight Management Weight:: 97.976 kg - Intervention Referral to dietitian:: No Referral to Diabetic Clinic:: No Will attend diet classes:: Yes - Education Attended class for:: Signs & symptoms of hypoglycemia, Signs & symptoms of hyperglycemia, Relate diabetes to coronary artery disease, Healthy eating Tobacco - Initial Assessment - Program Goals Tobacco Program Goals: Complete smoking cessation. Attend education classes. Improve Knowledge Test score - Learning Barriers Learning Barriers: Vision - requires reading glasses, Ready to Learn Tobacco - 60-Day Assessment - Program Goals Tobacco Program Goals: Complete smoking cessation. Attend education classes. Improve Knowledge Test score - Stage of Change Stages of Change:: Action - Learning Barriers Learning Barriers: Participates in education - Family Support Do you have family support?: Yes - Tobacco Use Tobacco Use: Non-smoker Do you use smokeless tobacco?: No - Intervention Smoking Cessation Referral:: No Individual Education/Counseling:: No Education Schedule Given:: Yes - Education Attended class for:: Tobacco triggers, Coronary artery disease, Risk factors, Sexuality, Medical compliance, Cardiac A&P, Angina signs & symptoms Psychosocial - Initial Assess - Target Goals Target Goals: Assess presence or absence of depression. Using a valid screening tool, maximizes coping skills. Positive support system - Psychosocial Test Tool Used:: HANDS Depression Questionnaire - Assistive Devices Fall Risk Assessed:: Yes Psychosocial - 60-Day Assess - Target Goals Target Goals: Assess presence or absence of depression. Using a valid screening tool, maximizes coping skills. Positive support system - Stages of Change Stages of Change:: Action - Psychosocial Test Tool Used:: HANDS Depression Questionnaire - Intervention PS - Interventions: Yes Attend Stress Management Classes, Yes Uses Stress Management Skills, No Referral to Mental Health, No Referral to [facility] Case Management, No Referral to Physician - Education Attended classes for:: Coping techniques, Signs & symptoms of depression, Stress management, Relaxation techniques - Assistive Devices Assistive Devices:: None Fall Risk Assessed:: Yes Patient Health Questionnaire 60-Day Re-eval Assessment 1. Little interest or pleasure in doing things: Not at all 2. Feeling down, depressed, or hopeless: Not at all 3. Trouble falling or staying asleep, or sleeping too much: Not at all 4. Feeling tired or having little energy: Not at all 5. Poor appetite or overeating: Not at all 6. Feeling bad about yourself -- or that you are a failure or have let yourself or your family down: Not at all 7. Trouble concentrating on things, such as reading the newspaper or watching television: Not at all 8. Moving or speaking so slowly that other people could have noticed. Or the opposite - being so fidgety or restless that you have been moving around a lot more than usual: Not at all 9. Thoughts that you would be better off , or of hurting yourself in some way: Not at all How difficult have these problems made it for you to do your work, take care of things at home, or get along with other people?: Not difficult at all Total Score: 0 Self-Efficacy 60-Day Re-eval Assessment We would like to know how confident you are in doing certain activities. Please select your confidence level for:: Select your confidence level for the following using the scale 1-10 where 1 is not at all confident and 10 is totally confident. Your score is the average of all 6 responses. Fatigue: How confident are you that you can keep the fatigue caused by your disease from interfering with the things you want to do? Select Number: 9 Physical Discomfort or Pain: How confident are you that you can keep the physical discomfort or pain of your disease from interfering with the things you want to do? Select Number: 9 Emotional Distress: How confident are you that you can keep the emotional distress caused by your disease from interfering with the things you want to do? Select Number: 9 Other Symptoms or Health Problems: How confident are you that you can keep other symptoms or health problems from interfering with the things you want to do? Select Number: 10 Different Tasks and Activities: How confident are you that you can do the different tasks and activities needed to manage your health condition so as to reduce your need to see a doctor? Select Number: 10 Medication: How confident are you that you can do things other than just taking medication to reduce how much your illness affects your everyday life? Select Number: 10 Total Score:: 9
== END 2018-01-24 23:59 ==
LOC: CR 11:30
PROVIDERS: Family Provider Family Medicine; PCP Family Medicine; Visit Provider Internal Medicine Cardiovascular Disease
DX: I21.02 ST elevation (STEMI) myocardial infarction involving left anterior descending coronary artery (principal); I25.10 Atherosclerotic heart disease of native coronary artery without angina pectoris
CPT/HCPCS: 93798

== ENCOUNTER 2018-02-20 11:30 | Outpatient (RCR) | payer MEDICARE, OTHER, SELFPAY ==
[2017-10-22 14:10] VITALS: BMI 34.2
[2018-01-25 00:53] VITALS: BP 120/70; BP 90/62
[2018-02-18 11:12] VITALS: BP 110/50; BP 90/52
--- NOTE | 2018-02-18 11:12 | CR.ITP_ITS ---
General Information - General Information Admitting Diagnosis: PCI with coronary artery stenting - Education/Goals Barriers to Learning: Vision Impairment Cardiac Rehabilitation Goals: 1. Maintain the individual as the primary focus of care. 2. To improve the patient's quality of life. 3. Identification of cardiac risk factors and provide cardiac risk factor management. 4. Enhance the psychosocial status of the patient. 5. Reconditioning enough to allow the patient to resume customary activities. 6. Control symptoms of cardiac disease Scale for measuring improvement of personal goals: Enter appropriate number in Comments. 2 = Unchanged. 3 = Slightly Better. 4 = Moderate Improvement. 5 = Met my Goal Personal Goals: Discharge Reassessment: Improve energy level, Improve muscle strength and endurance, Improve diet and eating habits (eat healthier) Exercise - 90-Day Assessment - Visit Date of Eval: 02/18/18 Session #:: 28 - Stages of Change Stages of Change:: Action - Exercise Prescription Mode:: Treadmill, Rower, NuStep Frequency (x/week): 3 Duration:: 30 METs: 9 Target Heart Rate:: 116-124 Max HR 119 - Hypertension Resting Blood Pressure:: 90/52 Peak Exercise Blood Pressure:: 110/50 - Intervention Home Exercise/Activity Goal:: Sitting Time <3 hrs/day - Education Goals:: Warm-up, RPE ANA Scale, S/S, Safe Exercise, Self-Monitoring - Exercise Program Goals Exercise Program Goals: Aerobic Activity >30 min, B/P <130/80 Nutrition - Initial Assessment - Program Goals Nutrition Program Goals: LDL <70. Total Cholesterol <200. HDL >45. Triglycerides <150. HgbA1C <7%. BMI <25 - Diabetes Do you monitor your blood sugar at home?: No Nutrition - 90-Day Assessment - Program Goals Nutrition Program Goals: LDL <70. Total Cholesterol <200. HDL >45. Triglycerides <150. HgbA1C <7%. BMI <25 - Visit Date of Eval: 02/18/18 - Stages of Change Stages of Change:: Action - Lipids Has the patient seen the dietitian?: No - Weight Management Weight:: 96.842 kg - Intervention Referral to dietitian:: No Referral to Diabetic Clinic:: No Will attend diet classes:: Yes - Education Attended class for:: Signs & symptoms of hypoglycemia, Signs & symptoms of hyperglycemia, Relate diabetes to coronary artery disease, Healthy eating Tobacco - Initial Assessment - Program Goals Tobacco Program Goals: Complete smoking cessation. Attend education classes. Improve Knowledge Test score - Learning Barriers Learning Barriers: Vision - requires reading glasses, Ready to Learn Tobacco - 90-Day Assessment - Program Goals Tobacco Program Goals: Complete smoking cessation. Attend education classes. Improve Knowledge Test score - Stage of Change Stages of Change:: Action - Learning Barriers Learning Barriers: Participates in education - Family Support Do you have family support?: Yes - Tobacco Use Tobacco Use: Non-smoker Do you use smokeless tobacco?: No - Intervention Smoking Cessation Referral:: No Individual Education/Counseling:: No Education Schedule Given:: Yes - Education Attended class for:: Tobacco triggers, Coronary artery disease, Risk factors, Sexuality, Medical compliance, Cardiac A&P, Angina signs & symptoms Psychosocial - 90-Day Assess - Target Goals Target Goals: Assess presence or absence of depression. Using a valid screening tool, maximizes coping skills. Positive support system - Stages of Change Stages of Change:: Action - Psychosocial Test Tool Used:: HANDS Depression Questionnaire - Intervention PS - Interventions: Yes Attend Stress Management Classes, Yes Uses Stress Management Skills, No Referral to Mental Health, No Referral to [facility] Case Management, No Referral to Physician - Education Attended classes for:: Coping techniques, Signs & symptoms of depression, Stress management, Relaxation techniques - Assistive Devices Assistive Devices:: None Fall Risk Assessed:: Yes Patient Health Questionnaire 90-Day Re-eval Assessment 1. Little interest or pleasure in doing things: Not at all 2. Feeling down, depressed, or hopeless: Not at all 3. Trouble falling or staying asleep, or sleeping too much: Not at all 4. Feeling tired or having little energy: Not at all 5. Poor appetite or overeating: Not at all 6. Feeling bad about yourself -- or that you are a failure or have let yourself or your family down: Not at all 7. Trouble concentrating on things, such as reading the newspaper or watching television: Not at all 8. Moving or speaking so slowly that other people could have noticed. Or the opposite - being so fidgety or restless that you have been moving around a lot more than usual: Not at all 9. Thoughts that you would be better off , or of hurting yourself in some way: Not at all How difficult have these problems made it for you to do your work, take care of things at home, or get along with other people?: Not difficult at all Total Score: 0 Self-Efficacy 90-Day Re-eval Assessment We would like to know how confident you are in doing certain activities. Please select your confidence level for:: Select your confidence level for the following using the scale 1-10 where 1 is not at all confident and 10 is totally confident. Your score is the average of all 6 responses. Fatigue: How confident are you that you can keep the fatigue caused by your disease from interfering with the things you want to do? Select Number: 10 Physical Discomfort or Pain: How confident are you that you can keep the physical discomfort or pain of your disease from interfering with the things you want to do? Select Number: 10 Emotional Distress: How confident are you that you can keep the emotional distress caused by your disease from interfering with the things you want to do? Select Number: 10 Other Symptoms or Health Problems: How confident are you that you can keep other symptoms or health problems from interfering with the things you want to do? Select Number: 10 Different Tasks and Activities: How confident are you that you can do the different tasks and activities needed to manage your health condition so as to reduce your need to see a doctor? Select Number: 10 Medication: How confident are you that you can do things other than just taking medication to reduce how much your illness affects your everyday life? Select Number: 10 Total Score:: 10
== END 2018-02-24 23:59 ==
LOC: CR 11:30
PROVIDERS: Family Provider Family Medicine; PCP Family Medicine; Visit Provider Internal Medicine Cardiovascular Disease
DX: I21.02 ST elevation (STEMI) myocardial infarction involving left anterior descending coronary artery (principal); I25.10 Atherosclerotic heart disease of native coronary artery without angina pectoris; Z95.5 Presence of coronary angioplasty implant and graft
CPT/HCPCS: 93798

== ENCOUNTER 2018-03-09 11:30 | Outpatient (RCR) | payer MEDICARE, OTHER, SELFPAY ==
[2017-10-22 14:10] VITALS: BMI 34.2
[2018-02-25 00:52] VITALS: BP 110/50; BP 90/52
--- NOTE | 2018-03-20 14:30 | PCM.CR.ITP ---
Exercise - Final/Discharge - Visit Date of Eval: 03/20/18 - graduated 03/09/2018 - Stages of Change Stages of Change:: Action - Exercise Prescription Mode:: Treadmill, Rower, Airdyne Frequency (x/week): 3 Duration:: 35 METs: 10 Target Heart Rate:: 124-132 - Hypertension Do any of the following apply?: Yes Resting Blood Pressure:: 102/64 Peak Exercise Blood Pressure:: 102/64 - Intervention Home Exercise/Activity Goal:: Moderate Exercise 30 min/day x 5 days/wk - Education Goal Progress: Goal Met - Exercise Program Goals Exercise Program Goals: Aerobic Activity >30 min Nutrition - Initial Assessment - Program Goals Nutrition Program Goals: LDL <70. Total Cholesterol <200. HDL >45. Triglycerides <150. HgbA1C <7%. BMI <25 - Diabetes Do you monitor your blood sugar at home?: No Nutrition - Final Assessment - Program Goals Nutrition Program Goals: LDL <70. Total Cholesterol <200. HDL >45. Triglycerides <150. HgbA1C <7%. BMI <25 - Visit Date of Eval: 03/20/18 - Stages of Change Stages of Change:: Action - Diabetes Diabetes:: No Insulin: No Non-Insulin Dependent?: No - Weight Management Height: 5 ft 9 in Weight:: 212 lb Body Fat %:: 34.1 - Intervention Referral to dietitian:: No Referral to Diabetic Clinic:: No Will attend diet classes:: Yes - Education Education Goal Reached?: Yes Tobacco - Initial Assessment - Program Goals Tobacco Program Goals: Complete smoking cessation. Attend education classes. Improve Knowledge Test score - Learning Barriers Learning Barriers: Vision - requires reading glasses, Ready to Learn Tobacco - Final Assessment - Program Goals Tobacco Program Goals: Complete smoking cessation. Attend education classes. Improve Knowledge Test score - Stage of Change Stages of Change:: Action - Learning Barriers Cardiac Knowledge Test Score:: 20 - Family Support Do you have family support?: Yes - Tobacco Use Tobacco Use: Non-smoker Do you use smokeless tobacco?: No - Intervention Smoking Cessation Referral:: No Individual Education/Counseling:: No Education Schedule Given:: Yes - Education Education Goal Reached?: Yes Psychosocial - Initial Assess - Target Goals Target Goals: Assess presence or absence of depression. Using a valid screening tool, maximizes coping skills. Positive support system - Psychosocial Test Tool Used:: HANDS Depression Questionnaire - Assistive Devices Fall Risk Assessed:: Yes Psychosocial - Final Assessmen - Target Goals Target Goals: Assess presence or absence of depression. Using a valid screening tool, maximizes coping skills. Positive support system - Stages of Change Stages of Change:: Action - Psychosocial Test Tool Used:: HANDS Depression Questionnaire - Intervention PS - Interventions: Yes Attend Stress Management Classes, Yes Uses Stress Management Skills, No Referral to Mental Health, No Referral to [facility] Case Management, No Referral to Physician - Education Education Goal Reached?: Yes - Patient/Program Goal Preventative Medication(s):: Aspirin, Clopidogrel, Beta donna, Statin/lipid - Assistive Devices Assistive Devices:: None Fall Risk Assessed:: Yes Patient Health Questionnaire Discharge Assessment 1. Little interest or pleasure in doing things: Not at all 2. Feeling down, depressed, or hopeless: Not at all 3. Trouble falling or staying asleep, or sleeping too much: Not at all 4. Feeling tired or having little energy: Not at all 5. Poor appetite or overeating: Not at all 6. Feeling bad about yourself -- or that you are a failure or have let yourself or your family down: Not at all 7. Trouble concentrating on things, such as reading the newspaper or watching television: Not at all 8. Moving or speaking so slowly that other people could have noticed. Or the opposite - being so fidgety or restless that you have been moving around a lot more than usual: Not at all 9. Thoughts that you would be better off , or of hurting yourself in some way: Not at all How difficult have these problems made it for you to do your work, take care of things at home, or get along with other people?: Not difficult at all Total Score: 0 ROLAND-Q SV Test - Statements CAD is a disease of the arteries in the heart: False Examples of risk factors for heart disease: True Angina is chest pain or discomfort: True The benefits of resistance training include: True Eating more meat and dairy products: False Anti-platelet medications such as aspirin are important: True The only effective way to manage stress: False An exercise warm-up slowly increases heart rate: True Prepared, processed foods usually have high sodium: True Depression is common after a heart attack: True The statin medications lower cholesterol: True To control blood pressure, lower the amount of sodium: True If someone gets chest discomfort during walking: False Transfats are partially hydrogenated vegetable oils: True Sleep apnea that is not treated increases the risk: False To control cholesterol, one should become a vegetarian: False Someone knows if he/she is exercising at the right level: True Diabetes cannot be prevented with exercise & health eating: False Stress is a large risk for heart attack: True A diet that can help lower blood pressure is rich in: True - Total Score Total Correct Responses: 20 Self-Efficacy Discharge Assessment We would like to know how confident you are in doing certain activities. Please select your confidence level for:: Select your confidence level for the following using the scale 1-10 where 1 is not at all confident and 10 is totally confident. Your score is the average of all 6 responses. Fatigue: How confident are you that you can keep the fatigue caused by your disease from interfering with the things you want to do? Select Number: 10 Physical Discomfort or Pain: How confident are you that you can keep the physical discomfort or pain of your disease from interfering with the things you want to do? Select Number: 10 Emotional Distress: How confident are you that you can keep the emotional distress caused by your disease from interfering with the things you want to do? Select Number: 10 Other Symptoms or Health Problems: How confident are you that you can keep other symptoms or health problems from interfering with the things you want to do? Select Number: 10 Different Tasks and Activities: How confident are you that you can do the different tasks and activities needed to manage your health condition so as to reduce your need to see a doctor? Select Number: 10 Medication: How confident are you that you can do things other than just taking medication to reduce how much your illness affects your everyday life? Select Number: 10 Total Score:: 10
[2018-03-20 14:35] VITALS: BP 102/64
== END 2018-03-13 13:00 | disposition home or self-care (01) ==
LOC: CR 11:30
PROVIDERS: Family Provider Family Medicine; PCP Family Medicine; Visit Provider Internal Medicine Cardiovascular Disease
DX: I21.02 ST elevation (STEMI) myocardial infarction involving left anterior descending coronary artery (principal); I25.10 Atherosclerotic heart disease of native coronary artery without angina pectoris; Z95.5 Presence of coronary angioplasty implant and graft
CPT/HCPCS: 93798

== ENCOUNTER → 2018-06-08 12:52 | Outpatient (CLI) | payer MEDICARE, OTHER, SELFPAY ==
[2017-10-22 14:10] VITALS: BMI 34.2
--- NOTE | 2018-06-08 12:56 | ECHOD_ITS ---
Reason For Study: CAD/ASHD Procedure This was a 2D Doppler, Color Flow transthoracic echocardiogram. Exam performed in department. Left Ventricle Normal LV size. Moderate segmental systolic dysfunction (see wall motion). The estimated ejection fraction is 40 %. [place] : Akinetic. Septal [place] : Akinetic. Anterior [place] : Severely Hypokinetic. Mid-anteroseptal : Hypokinetic. The rest of the wall segments are normal. Right Ventricle Normal RV size. Normal systolic function. Atria Normal left atrium. Normal right atrium. Mitral Valve Normal mitral valve. Tricuspid Valve Normal tricuspid valve. Unable to estimate RV systolic pressure due to inadequate jet, pulmonary artery pressure probably normal. Aortic Valve Normal aortic valve. Trisinus/trileaflet aortic valve. Pulmonic Valve Normal pulmonic valve. Great Vessels Normal aortic root. The pulmonary artery is normal size. Normal inferior vena cava. Pericardium/Pleural No pericardial effusion. MMode/2D Measurements & Calculations LVIDd: 4.9 cm IVSd: 1.2 cm Ao root diam: 3.6 cm LVIDs: 3.8 cm LVPWd: 1.1 cm LA dimension: 3.7 cm FS: 22.5 % LAV(MOD-bp): 55.9 ml LVAd ap4: 42.3 cm2 SV(MOD-sp4): 69.8 ml LAV(MOD-bp) Indexed: 26.1 ml/m2 EDV(MOD-sp4): 161.5 ml LAV(MOD-sp2): 61.1 ml EDV(sp4-el): 173.7 ml LAV(MOD-sp4): 40.7 ml LVAs ap4: 30.6 cm2 ESV(MOD-sp4): 91.8 ml ESV(sp4-el): 101.2 ml EF(MOD-sp4): 43.2 % EF(sp4-el): 41.7 % SV(sp4-el): 72.5 ml LA A4 area: 15.9 cm2 RA A4 area: 18.2 cm2 Time Measurements MV dec time: 0.31 sec Doppler Measurements & Calculations MV E max bj: 55.0 cm/sec Lat Peak E' Bj: 5.2 cm/sec Med Peak E' Bj: 6.3 cm/sec MV A max bj: 70.3 cm/sec E/E' lat: 10.7 E/E' med: 8.8 MV E/A: 0.78 MV V2 max: 69.2 cm/sec MV P1/2t max bj: 59.5 cm/sec Ao V2 max: 102.1 cm/sec MV max P.9 mmHg MV P1/2t: 141.4 msec Ao max P.2 mmHg MV V2 mean: 37.5 cm/sec MV dec slope: 123.3 cm/sec2 Ao V2 mean: 62.5 cm/sec MV mean P.64 mmHg MVA(P1/2t): 1.6 cm2 Ao mean P.8 mmHg MV V2 VTI: 30.2 cm Ao V2 VTI: 22.9 cm LV V1 max: 74.1 cm/sec PA V2 max: 88.6 cm/sec LV V1 max P.2 mmHg LV V1 mean P.1 mmHg LV V1 mean: 48.1 cm/sec LV V1 VTI: 18.9 cm Interpretation Summary Normal LV size. Moderate segmental systolic dysfunction (see wall motion). The estimated ejection fraction is 40 %. Structurally normal valves. Compared to previous study, the left ventricular systolic function has improved.. Ordering Physician: Kristian Matthew Referring Physician: JOE MAXWELL Performed By: Damion Andrade RCS
== END ==
PROVIDERS: Family Provider Family Medicine; PCP Family Medicine; Referring Provider Internal Medicine Cardiovascular Disease; Visit Provider Internal Medicine Cardiovascular Disease
DX: I25.10 Atherosclerotic heart disease of native coronary artery without angina pectoris (principal)
CPT/HCPCS: 93306

== ENCOUNTER → 2018-06-22 09:58 | Outpatient (CLI) | payer MEDICARE, OTHER, SELFPAY ==
[2017-10-22 14:10] VITALS: BMI 34.2
[2018-06-22 11:43] LABS: AST(SGOT) 17 U/L (15-37); Alanine Aminotransfer ALT/SGPT 23 U/L (16-61); Albumin, Serum 3.5 g/dL (3.2-5.0); Alkaline Phosphatase 63 U/L (45-117); Bilirubin, Direct 0.16 mg/dL (0.00-0.30); Cholesterol 196 mg/dL (200); Globulin 3.8 g/dL (2.2-4.2); High Density Lipoprotein 49 mg/dL; Protein, Total 7.3 g/dL (6.4-8.2); Triglycerides 269 mg/dL; Very Low Density Lipoprotein 54 mg/dL (5-40)
== END ==
PROVIDERS: Family Provider Family Medicine; PCP Family Medicine; Referring Provider Internal Medicine Cardiovascular Disease; Visit Provider Internal Medicine Cardiovascular Disease
DX: E78.5 Hyperlipidemia, unspecified (principal)
CPT/HCPCS: 36415; 80061; 80076

== ENCOUNTER 2018-09-11 11:45 | Emergency (ER) | payer MEDICARE, OTHER, SELFPAY ==
[2017-10-22 14:10] VITALS: BMI 34.2
[2018-06-23 10:43] VITALS: BMI 33.3
[2018-09-11 11:47] VITALS: BP 122/75; PULSE 92; RESP 18; TEMP 36.6; O2SAT 95; BMI 32.1
--- NOTE | 2018-09-11 13:41 | ED.RN ---
pt asking for something to eat. instructed to wait until seen by physician due to abdominal pain
--- NOTE | 2018-09-11 14:24 | EKG12_ITS ---
Test Reason : REPEAT Blood Pressure : / mmHG Vent. Rate : 072 BPM Atrial Rate : 072 BPM P-R Int : 178 ms QRS Dur : 086 ms QT Int : 368 ms P-R-T Axes : 029 -25 025 degrees QTc Int : 402 ms Normal sinus rhythm Low voltage QRS Septal infarct , age undetermined Inferior infarct , age undetermined Abnormal ECG Confirmed by TRACEY PETTY, BRITTNY ([id number]), assignment desk editor CRISTINE ANDREA ([id number]) on 09/15/2018 11:42:37 AM Referred By: YOLANDA Confirmed By:BRITTNY WEBB MD
--- NOTE | 2018-09-11 14:25 | CT_ITS ---
STUDY: CT ABDOMEN AND PELVIS WITHOUT CONTRAST REASON FOR EXAM: Male, 68 years old. Abdominal pain. RADIATION DOSAGE (If Supplied By Facility): CTDIvol = ( 20.97 ) mGy, DLP = ( 2199.36 ) mGycm TECHNIQUE: Transaxial images were obtained from the dome of the diaphragm to the symphysis pubis without oral contrast, and without intravenous contrast. Sagittal and coronal images were reconstructed. Individualized dose optimization techniques were used for this CT. COMPARISON: Comparison is made with prior study dated October 23, 2017. FINDINGS: The visualized lung bases are unremarkable. The visualized portions of the heart are within normal limits. There is decreased attenuation of the liver consistent with steatosis. Normal gallbladder and extrahepatic biliary system. Normal spleen. Normal pancreas. There is symmetric enlargement of the adrenal glands suggesting adrenal hyperplasia. Normal right kidney. Normal left kidney. Normal visualized stomach. Normal small intestine. There is diverticulosis, with thickening of the colon wall, and pericolonic inflammation changes consistent with acute diverticulitis. The appendix is visualized and appears normal. Normal abdominal aorta. Normal inferior vena cava. Normal retroperitoneum. Normal urinary bladder. Moderate sized left inguinal hernia containing fat. There are mild degenerative changes of the visualized lumbar spine. CT/Abdomen/Pelvis W IV Cont ONLY IMPRESSION: The findings in comparison with a noncomplicated acute sigmoid diverticulitis. Fatty infiltration of the liver. Electronically Signed: Beto Victor MD at 15:43 EST , Service support ,
--- NOTE | 2018-09-11 14:30 | RAD_ITS ---
STUDY: X-RAY CHEST REASON FOR EXAM: Male, 68 years old. Abdominal pain. TECHNIQUE: Single AP portable view of the chest. COMPARISON: None. FINDINGS: Gynecomastia. The lungs are clear and expanded. Scattered calcified granulomas. There is no demonstrated pleural abnormality. Normal size heart. Normal mediastinum and rukhsana. Normal visualized pulmonary arteries. There is atherosclerotic calcification of the aortic arch with tortuosity. There are diffuse degenerative changes of the visualized thoracic spine. Normal visualized ribs, clavicles, and shoulders. There is no demonstrated abnormality of the visualized soft tissue structures of the upper abdomen. RAD/Chest 1 View (Portable) IMPRESSION: No acute abnormality is seen. Electronically Signed: Beto Victor MD at 15:06 EST , Service support ,
[2018-09-11 14:47] VITALS: BP 115/71; PULSE 80; RESP 14; O2SAT 98
--- NOTE | 2018-09-11 14:48 | ED.VISSUMM ---
- ER Visit Summary Date of Service: 09/11/18 Chief Complaint: Abdominal pain History of Present Illness: The patient is a 68 M presents to the emergency department with abdominal pain. The patient had these similar symptoms, but they were much more severe, about a year ago when he had a STEMI. He states that over the past 12 hours, he had some mild abdominal cramping. States is worse with eating and drinking. Is across his lower abdomen. He does have a history of diverticulitis but cannot really tell if this is the same. He denies any fevers or chills. He denies any shortness of breath. He does follow with Dr. Matthew and was sent in for further evaluation. He has been compliant with all of his medications. Physical Examination: Vital signs reviewed General: Well-nourished, well-developed Head: Normocephalic, atraumatic Eyes: Pupils equal and reactive, extraocular muscles intact Neck, supple, no lymphadenopathy Heart: Regular rate and rhythm Respiratory: No distress, clear bilaterally Abdomen: Soft, nontender, nondistended, no peritoneal signs Back: Nontender Extremities: Nontender, no edema, no cords Skin: Normal color no rash Neuro: Alert and oriented, no focal or lateralizing deficits Test Results: [] Emergency Department Course and Treatment: The patient presents with lower abdominal pain. It is worse after he eats. He did have some similar symptoms when he had a STEMI, but at that time the pain was higher. He also has a history of diverticulitis. EKG was obtained. There is no acute ischemic change. His first cardiac exam is normal. Patient declined any analgesics. I did discuss his care with Dr. Matthew who had referred the patient to the emergency department. The patient symptoms do seem more GI in nature, with his history, he was comfortable with plan for a delta troponin. The patient did undergo CT of his abdomen pelvis which does show uncomplicated acute diverticulitis. Patient was given Cipro and Flagyl. Repeat EKG shows no acute progression. There is no new ischemic change. His second set of cardiac enzymes was unremarkable. At this time, I do feel that this is all secondary to diverticulitis. The patient will be discharged with oral antibiotics. Treatment Plan: [] Disposition: Discharge Impression: 1. Diverticulitis This note was generated with [employer] software. It may contain incorrect words, spelling, and punctuation that were not noted in review of the chart prior to signing ED Disposition - Plan for ED Patient: Instructions: ED Diverticulitis Prescriptions: Metronidazole [Flagyl] 500 mg PO Q8H #21 tab Ciprofloxacin [Cipro] 500 mg PO BID #14 tab Referrals: Juan Pierce MD [Primary Care Provider] -
[2018-09-11 14:52] LABS: Absolute Lymphocyte Count 1.31 X10^3/ul (0.83-4.51); Absolute Neutrophil Count 7.9 X10^3/uL (2.0-7.7); Basophil# 0.02 X10^3/uL; Basophil% 0.2 % (0-1); Eosinophil# 0.02 X10^3/uL; Eosinophils% 0.2 % (0-5); Hematocrit 45.7 % (40-54); Hemoglobin 15.3 g/dl (13.0-16.5); Lymphocyte # 1.31 X10^3/ul (4.0); Lymphocyte % 12.8 % (19-41); Mean Corp Hgb Conc 33.5 g/gl (32-36); Mean Corpuscular Hgb 30.4 pg (27.0-32.0); Mean Corpuscular Volume 90.7 fL (80-94); Mean Platelet Vol. 9.9 fl (6.2-12.0); Monocyte# 1.03 X10^3/uL; Neutrophil # 7.85 X10^3/uL (2.7-7.7); Neutrophil % 76.5 % (47-70); Platelet Count 200 K/mm3 (150-450); RBC Distribution Width CV 12.8 % (11.6-14.6); RBC Distribution Width SD 41.6 fl (35.1-43.9); Red Blood Count 5.04 M/mm3 (4.6-6.2); White Blood Count 10.3 K/mm3 (4.4-11.0)
[2018-09-11 14:53] LABS: POSITIVE COUNT NO; POSITIVE DIFFERENTIAL NO; POSITIVE MORPHOLOGY NO
[2018-09-11] MEDS: Ondansetron 4 MG/2 ML Vial IV (14:53)
[2018-09-11] MEDS: Aspirin 81 MG TAB.CHEW 324 MG PO (14:53)
[2018-09-11] MEDS: 0.9% Normal Saline 1,000 ML 250 ML IV (14:53)
[2018-09-11 15:05] LABS: ALB/GLOB Ratio 0.9 RATIO (0.9-2.4); AST(SGOT) 18 U/L (15-37); Alanine Aminotransfer ALT/SGPT 19 U/L (16-61); Albumin, Serum 3.7 g/dL (3.2-5.0); Alkaline Phosphatase 65 U/L (45-117); Anion Gap 7 (5-15); BUN 13 mg/dL (7-18); BUN/Creat Ratio 10.6 RATIO (10-20); Calcium,Total 8.8 mg/dL (8.5-10.1); Chloride 101 mmol/L (98-107); Creatinine, Serum 1.23 mg/dL (0.70-1.30); EST Glomerular Filtration Rate 63 mL/min (>60); Est Glom Filt Rate - Afr Amer 76 mL/min (>60); Estimated Creatinine Clearance 59.08 ml/min; Globulin 4.2 g/dL (2.2-4.2); Glucose 77 mg/dL (74-106); Lipase 121 U/L (73-393); Potassium 3.8 mmol/L (3.5-5.1); Protein, Total 7.9 g/dL (6.4-8.2); Sodium Level 135 mmol/L (136-145)
--- NOTE | 2018-09-11 15:17 | EKG12_ITS ---
Test Reason : ABD PAIN Blood Pressure : / mmHG Vent. Rate : 086 BPM Atrial Rate : 086 BPM P-R Int : 166 ms QRS Dur : 078 ms QT Int : 336 ms P-R-T Axes : 046 -21 050 degrees QTc Int : 402 ms Normal sinus rhythm Low voltage QRS Septal infarct , age undetermined Abnormal ECG Confirmed by TRACEY PETTY, BRITTNY ([id number]), editorial specialist CRISTINE ANDREA ([id number]) on 09/15/2018 11:43:10 AM Referred By: [facility] Confirmed By:BRITTNY WEBB MD
[2018-09-11 16:29] VITALS: BP 108/66; PULSE 71; RESP 17; O2SAT 98
[2018-09-11] MEDS: Ciprofloxacin 500 MG Tablet PO (16:30)
[2018-09-11] MEDS: metroNIDAZOLE 500 MG Tablet PO (16:30)
[2018-09-11 18:12] VITALS: BP 100/68; PULSE 74; RESP 15; O2SAT 95
== END 2018-09-11 18:13 | disposition home or self-care (01) ==
LOC: ED 15:01
PROVIDERS: Emergency Provider Emergency Medicine; Family Provider Family Medicine; PCP Family Medicine
DX: K57.92 Diverticulitis of intestine, part unspecified, without perforation or abscess without bleeding (principal); I25.2 Old myocardial infarction; I25.10 Atherosclerotic heart disease of native coronary artery without angina pectoris; I10 Essential (primary) hypertension; E78.00 Pure hypercholesterolemia, unspecified; Z79.82 Long term (current) use of aspirin; Z79.899 Other long term (current) drug therapy
CPT/HCPCS: 36415; 71045; 74177; 80053; 83690; 84484; 85025; 93005; 96361; 96374; 99285; J7030; Q9967; A4216; J2405

== ENCOUNTER → 2018-12-29 | Outpatient (CLI) | payer MEDICARE, OTHER, SELFPAY ==
[2017-10-22 14:10] VITALS: BMI 34.2
[2018-12-29 10:50] LABS: AST(SGOT) 29 U/L (15-37); Alanine Aminotransfer ALT/SGPT 23 U/L (16-61); Albumin, Serum 3.6 g/dL (3.2-5.0); Alkaline Phosphatase 64 U/L (45-117); Bilirubin, Direct 0.15 mg/dL (0.00-0.30); Cholesterol 179 mg/dL (200); Globulin 3.9 g/dL (2.2-4.2); High Density Lipoprotein 42 mg/dL; Protein, Total 7.5 g/dL (6.4-8.2); Triglycerides 214 mg/dL; Very Low Density Lipoprotein 43 mg/dL (5-40)
== END | disposition home or self-care (01) ==
LOC: LAB 09:38
PROVIDERS: Family Provider Family Medicine; PCP Family Medicine; Referring Provider Internal Medicine Cardiovascular Disease; Visit Provider Internal Medicine Cardiovascular Disease
DX: I25.10 Atherosclerotic heart disease of native coronary artery without angina pectoris (principal); Z95.5 Presence of coronary angioplasty implant and graft
CPT/HCPCS: 36415; 80061; 80076

== ENCOUNTER → 2019-01-18 | Outpatient (CLI) | payer MEDICARE, OTHER, SELFPAY ==
[2017-10-22 14:10] VITALS: BMI 34.2
[2018-12-31 13:01] VITALS: BMI 33.5
--- NOTE | 2019-01-18 10:36 | STRESSREP ---
Stress Test Report Exercise myocardial perfusion stress test. 68-year-old man with a history of known coronary artery disease. Medications aspirin clopidogrel pravastatin. Resting protocol. Resting EKG demonstrates sinus bradycardia with a rate of 58 bpm normal intervals are noted resting blood pressures 120/84 mmHg. The patient exercised according to regular Beny protocol for total duration of 9 minutes patient completed stage III of the Beny protocol the maximum heart rate attained was 136 bpm which was 88% of maximum predicted heart rate the maximum workload was 10 metabolic equivalents. Patient maintained sinus rhythm throughout the recording. At rest there were no ST or T wave changes noted suggest ischemia at peak exercise upsloping ST changes only were noted with no meet the criteria for ischemia. The resting blood pressures 120/84 with a peak blood pressure 148/82 mmHg. No clinical angina was noted the test was terminated due to leg fatigue. Myocardial perfusion protocol. 14.5 mCi of technetium 99m sestamibi was injected at rest. Patient exercised according to regular Beny protocol for total duration of 9 minutes. At peak exercise 44.7 mercury of technetium 99m sestamibi was injected stress images were obtained stress and rest images are reconstructed and compared in the short axis vertical long horizontal long axis. Gated images were also obtained per Perfusion SPECT analysis: Review of the stress images demonstrate a medium-sized defect noted involving the mid anterior wall to the apex. The anterior septal wall also has reduced perfusion. The inferior wall and the stress and resting images demonstrates mild reduction of perfusion. The resting images demonstrate no significant change. The above is suggestive of a previous anteroseptal and apical infarct and mild inferior infarct. No obvious areas of reversibility are noted suggest ischemia. Gated SPECT analysis: The gated ejection fraction is noted to be 47% with a mildly hypokinetic apex. Conclusion: Exercise myocardial perfusion stress test with evidence of previous anterior septal, apical, inferior infarct. No ischemia noted. Excellent functional aerobic capacity.
== END | disposition home or self-care (01) ==
LOC: CVS 06:39
PROVIDERS: Family Provider Family Medicine; PCP Family Medicine; Referring Provider Internal Medicine Cardiovascular Disease; Visit Provider Internal Medicine Cardiovascular Disease
DX: Z95.5 Presence of coronary angioplasty implant and graft (principal)
CPT/HCPCS: 78452; 93017; A9500; A4216

== ENCOUNTER → 2019-01-21 | Outpatient (CLI) | payer MEDICARE, OTHER, SELFPAY ==
[2017-10-22 14:10] VITALS: BMI 34.2
[2018-12-31 13:01] VITALS: BMI 33.5
== END | disposition home or self-care (01) ==
LOC: SL 20:33
PROVIDERS: Family Provider Family Medicine; PCP Family Medicine; Referring Provider Internal Medicine Cardiovascular Disease; Visit Provider Internal Medicine Cardiovascular Disease
DX: E78.5 Hyperlipidemia, unspecified (principal); G47.10 Hypersomnia, unspecified; I25.5 Ischemic cardiomyopathy; R40.0 Somnolence; Z95.5 Presence of coronary angioplasty implant and graft
CPT/HCPCS: 95810

== ENCOUNTER → 2019-03-25 | Outpatient (CLI) | payer MEDICARE, OTHER, SELFPAY ==
[2017-10-22 14:10] VITALS: BMI 34.2
[2019-02-08 08:45] VITALS: BMI 33.6
--- NOTE | 2019-03-25 14:46 | CT_ITS ---
STUDY: CT CHEST WITHOUT CONTRAST REASON FOR EXAM: Male, 68 years old. Follow-up pulmonary nodule RADIATION DOSAGE (If Supplied By Facility): CTDIvol = ( 18.96 ) mGy, DLP = ( 786.68 ) mGycm TECHNIQUE: Transaxial imaging was performed without the administration of intravenous contrast material. Individualized dose optimization techniques were used for this CT. COMPARISON: 10/24/2017 FINDINGS: No change in 1 cm ground glass nodule left lower lobe the lungs on image 111 and follow-up CT the chest is recommended in 6 months document stability. There is no demonstrated pleural abnormality. Normal heart and pericardium. There are calcifications of the coronary arteries. Normal mediastinum. Normal hilar regions. Normal unenhanced pulmonary arteries. Normal aorta arch and descending thoracic aorta. Normal osseous structures. There is no demonstrated abnormality of the visualized upper abdomen. CT/Chest without Contrast IMPRESSION: No change in 1 cm left lower lobe groundglass nodule and follow-up CT the chest is recommended in 6 months document stability. Electronically Signed: Oskar Ramos MD at 15:14 EDT Tel , Service support ,
== END | disposition home or self-care (01) ==
LOC: CT 14:44
PROVIDERS: Family Provider Family Medicine; PCP Family Medicine; Referring Provider Nurse Practitioner Acute Care; Visit Provider Nurse Practitioner Acute Care
DX: R91.1 Solitary pulmonary nodule (principal)
CPT/HCPCS: 71250

== ENCOUNTER → 2019-04-06 | Outpatient (CLI) | payer MEDICARE, OTHER, SELFPAY ==
[2017-10-22 14:10] VITALS: BMI 34.2
[2019-02-08 08:45] VITALS: BMI 33.6
== END | disposition home or self-care (01) ==
LOC: SL 22:57
PROVIDERS: Family Provider Family Medicine; PCP Family Medicine; Referring Provider Nurse Practitioner Acute Care; Visit Provider Nurse Practitioner Acute Care
DX: G47.33 Obstructive sleep apnea (adult) (pediatric) (principal)
CPT/HCPCS: 95811

== ENCOUNTER → 2019-07-22 10:28 | Outpatient (CLI) | payer MEDICARE, OTHER, SELFPAY ==
[2017-10-22 14:10] VITALS: BMI 34.2
[2019-07-22 09:02] VITALS: BMI 35.2
[2019-07-22 12:48] LABS: AST(SGOT) 21 U/L (15-37); Alanine Aminotransfer ALT/SGPT 24 U/L (16-61); Albumin, Serum 3.8 g/dL (3.2-5.0); Alkaline Phosphatase 66 U/L (45-117); Anion Gap 3 (5-15); BUN 14 mg/dL (7-18); BUN/Creat Ratio 12.3 RATIO (10-20); Bilirubin, Direct 0.11 mg/dL (0.00-0.30); Calcium,Total 9.3 mg/dL (8.5-10.1); Chloride 107 mmol/L (98-107); Cholesterol 219 mg/dL (200); Creatinine, Serum 1.14 mg/dL (0.70-1.30); EST Glomerular Filtration Rate 68 mL/min (>60); Est Glom Filt Rate - Afr Amer 82 mL/min (>60); Globulin 3.9 g/dL (2.2-4.2); Glucose 96 mg/dL (74-106); High Density Lipoprotein 46 mg/dL; Potassium 4.5 mmol/L (3.5-5.1); Protein, Total 7.7 g/dL (6.4-8.2); Sodium Level 139 mmol/L (136-145); Triglycerides 358 mg/dL; Very Low Density Lipoprotein 72 mg/dL (5-40)
== END ==
PROVIDERS: Family Provider Family Medicine; PCP Family Medicine; Referring Provider Internal Medicine Cardiovascular Disease; Visit Provider Internal Medicine Cardiovascular Disease
DX: I21.02 ST elevation (STEMI) myocardial infarction involving left anterior descending coronary artery (principal); I25.10 Atherosclerotic heart disease of native coronary artery without angina pectoris; I25.5 Ischemic cardiomyopathy; Z95.5 Presence of coronary angioplasty implant and graft
CPT/HCPCS: 36415; 80048; 80061; 80076; 83880

== ENCOUNTER → 2019-09-08 | Outpatient (CLI) | payer MEDICARE, OTHER, SELFPAY ==
[2017-10-22 14:10] VITALS: BMI 34.2
[2019-07-22 09:02] VITALS: BMI 35.2
[2019-09-08 11:35] LABS: AST(SGOT) 20 U/L (15-37); Alanine Aminotransfer ALT/SGPT 39 U/L (16-61); Albumin, Serum 3.5 g/dL (3.2-5.0); Alkaline Phosphatase 59 U/L (45-117); Bilirubin, Direct 0.13 mg/dL (0.00-0.30); Cholesterol 150 mg/dL (200); High Density Lipoprotein 34 mg/dL; Protein, Total 7.5 g/dL (6.4-8.2); Triglycerides 181 mg/dL; Very Low Density Lipoprotein 36 mg/dL (5-40)
== END | disposition home or self-care (01) ==
LOC: LAB 10:16
PROVIDERS: PCP Family Medicine; Referring Provider Internal Medicine Cardiovascular Disease; Visit Provider Internal Medicine Cardiovascular Disease
DX: E78.00 Pure hypercholesterolemia, unspecified (principal)
CPT/HCPCS: 36415; 80061; 80076

== ENCOUNTER → 2020-05-18 | Outpatient (CLI) | payer MEDICARE, OTHER, SELFPAY ==
[2017-10-22 14:10] VITALS: BMI 34.2
[2019-07-22 09:02] VITALS: BMI 35.2
[2019-11-25 14:47] VITALS: BMI 34.0
--- NOTE | 2020-05-18 08:14 | CT_ITS ---
STUDY: CT CHEST WITHOUT CONTRAST REASON FOR EXAM: Male, 70 years old. Lung nodule follow up. Hx IA with stents. RADIATION DOSAGE (If Supplied By Facility): CTDIvol = ( 16.70 ) mGy, DLP = ( 651.14 ) mGycm TECHNIQUE: Transaxial imaging was performed without the administration of intravenous contrast material. Multiplanar coronal and sagittal images were reformatted. Individualized dose optimization techniques were used for this CT. COMPARISON: None. FINDINGS: There has been essentially no change in the faint 1 cm nodule in the posterior aspect of the left lower lobe adjacent to the left hemidiaphragm. There is no demonstrated pleural abnormality. There are calcifications of the coronary arteries. Normal mediastinum. Normal hilar regions. Normal unenhanced pulmonary arteries. There is atherosclerotic calcification of the aortic arch . There are multi-level degenerative changes of the thoracic spine. There is no demonstrated abnormality of the visualized upper abdomen. CT/Chest without Contrast IMPRESSION: Stable examination. Electronically Signed: Beto Victor, at 14:27 EDT , Service support ,
== END | disposition home or self-care (01) ==
LOC: CT 08:14
PROVIDERS: PCP Family Medicine; Referring Provider Internal Medicine Critical Care Medicine; Visit Provider Internal Medicine Critical Care Medicine
DX: R91.1 Solitary pulmonary nodule (principal)
CPT/HCPCS: 71250

== ENCOUNTER → 2020-06-21 10:20 | Outpatient (CLI) | payer MEDICARE, OTHER, SELFPAY ==
[2017-10-22 14:10] VITALS: BMI 34.2
[2020-06-15 08:42] VITALS: BMI 34.8
[2020-06-21 11:34] LABS: AST(SGOT) 18 U/L (15-37); Alanine Aminotransfer ALT/SGPT 22 U/L (16-61); Albumin, Serum 3.6 g/dL (3.2-5.0); Alkaline Phosphatase 66 U/L (45-117); Bilirubin, Direct 0.18 mg/dL (0.00-0.30); Cholesterol 204 mg/dL (200); High Density Lipoprotein 47 mg/dL; Protein, Total 7.6 g/dL (6.4-8.2); Triglycerides 240 mg/dL; Very Low Density Lipoprotein 48 mg/dL (5-40)
== END ==
PROVIDERS: PCP Family Medicine; Referring Provider Internal Medicine Cardiovascular Disease; Visit Provider Internal Medicine Cardiovascular Disease
DX: I25.10 Atherosclerotic heart disease of native coronary artery without angina pectoris (principal); E78.5 Hyperlipidemia, unspecified
CPT/HCPCS: 36415; 80061; 80076

== ENCOUNTER → 2020-09-22 14:22 | Outpatient (CLI) | payer MEDICARE, OTHER, SELFPAY ==
[2017-10-22 14:10] VITALS: BMI 34.2
[2020-09-07 13:50] VITALS: BMI 35.9
--- NOTE | 2020-09-22 14:24 | CT_ITS ---
STUDY: CT CHEST WITHOUT CONTRAST REASON FOR EXAM: Male, 70 years old. Follow up lung nodule RADIATION DOSAGE (If Supplied By Facility): CTDIvol = ( 16.42 ) mGy, DLP = ( 573.63 ) mGycm TECHNIQUE: Transaxial imaging was performed without the administration of intravenous contrast material. Multiplanar coronal and sagittal images were reformatted. Individualized dose optimization techniques were used for this CT. COMPARISON: Comparison is made with prior examination dated 05/18/2020. FINDINGS: Stable appearance of the faint 1 sign or nodule in the posterior aspect of the left lower lobe adjacent to the left hemidiaphragm. There is no demonstrated pleural abnormality. There are calcifications of the coronary arteries. Normal mediastinum. Normal hilar regions. Normal unenhanced pulmonary arteries. There is atherosclerotic calcification of the aortic arch . There are multi-level degenerative changes of the thoracic spine. Increased kyphosis. There is no demonstrated abnormality of the visualized upper abdomen. CT/Chest without Contrast IMPRESSION: Stable appearance of the faint 1 cm nodule in the posterior aspect of the left lower lobe adjacent to the left hemidiaphragm. Electronically Signed: Beto Victor MD at 14:56 EST , Service support ,
== END ==
PROVIDERS: PCP Family Medicine; Referring Provider Internal Medicine Critical Care Medicine; Visit Provider Internal Medicine Critical Care Medicine
DX: R91.1 Solitary pulmonary nodule (principal)
CPT/HCPCS: 71250

== ENCOUNTER 2020-10-03 14:37 | Emergency (ER) | payer MEDICARE, OTHER, SELFPAY ==
[2017-10-22 14:10] VITALS: BMI 34.2
[2020-09-07 13:50] VITALS: BMI 35.9
[2020-10-03 14:37] VITALS: BP 149/80; PULSE 107; RESP 18; TEMP 36.3; O2SAT 96; BMI 34.0
--- NOTE | 2020-10-03 15:46 | ED.DCSUM_ITS ---
- ER Visit Summary Date of Service: 10/03/20 Chief Complaint: Right upper eyelid laceration History of Present Illness: The patient is a 70 M was working on a piece of pipe when it snapped back and struck him across his right upper eyelid causing a laceration. He was not knocked out he has no headache. He is on Plavix. He denies any other complaints. No visual change. Unsure of his last tetanus shot which will be updated. Physical Examination: Older male no acute distress. Vital signs stable afebrile. H EENT exam he has a 5 cm laceration below his eyebrow on the right upper lid. Involves the skin and subcu tissue. It is bleeding. There is no pulsatile bleeding. His upper lid is edematous and bruised. Pupils round reactive light. There is no involvement of his eye. When I open his right upper and lower lids he can see normally. Otherwise there is no other signs of facial trauma. Nose nontender. No dental injury. Scalp unremarkable. Neck nontender. Lungs clear to auscultation. Heart regular rhythm no murmur. Abdomen is soft and nontender. Normal bowel sounds no peritoneal signs. Patient moving all 4 extremities. Neurologically is awake and alert. He knows day, month, year and president. He is acting normally. His GCS is 15. Test Results: None I do not think patient needs imaging. Emergency Department Course and Treatment: Procedure note right upper eyelid laceration. Wound was locally anesthetized with lidocaine. Cleaned using Shur- Clens, iodine and then irrigated and washed with saline. Those using simple interrupted 5-0 Ethilon sutures for a total of 6. Proper hemostasis wound closure obtained. It was instructed on wound care and icing the wound to decrease swelling. She was able to ambulate to the bathroom without any difficulty. Treatment Plan: Wound care. Suture removal and 10 to 14 days. Severe headache return for further evaluation and imaging. Tetanus updated. Disposition: Discharge Impression: Acute right upper eyelid laceration of 5 to 6 cm. Laceration repair by ER Tetanus updated This note was generated with [employer] dictation software. It may contain incorrect words, spelling, and punctuation that were not noted in review of the chart prior to signing ED Disposition - Plan for ED Patient: Referrals: Juan Pierce MD [Primary Care Provider] -
--- NOTE | 2020-10-03 15:50 | ED.DEP ---
ED Disposition - Plan for ED Patient: Disposition: Home or Assisted Living Instructions: ED Laceration: All Closures Referrals: Juan Pierce MD [Primary Care Provider] - 10-14 Days suture removal Additional Instructions: Call for any pain. Ice your laceration down a lot to decrease swelling and bleeding. If you develop a severe headache, vomiting or visual change return to be reevaluated. Your tetanus was updated will be good for 10 years. Keep the wound clean. Clean daily with soap and water. Clean gently. Stitches out in 10 to 14 days.
[2020-10-03] MEDS: Lidocaine 1% (20 ml mdv) 20 ML Vial 10 ML INFILT (15:55)
[2020-10-03] MEDS: Diphth,Pertuss(Acell),Tet Vac 0.5 ML Vial IM (15:59)
== END 2020-10-03 16:05 | disposition home or self-care (01) ==
LOC: ED 15:53
PROVIDERS: Emergency Provider Emergency Medicine; PCP Family Medicine
DX: S01.111A Laceration without foreign body of right eyelid and periocular area, initial encounter (principal); I25.10 Atherosclerotic heart disease of native coronary artery without angina pectoris; I10 Essential (primary) hypertension; Z79.899 Other long term (current) drug therapy; Z23 Encounter for immunization; Z79.02 Long term (current) use of antithrombotics/antiplatelets; W26.8XXA Contact with other sharp object(s), not elsewhere classified, initial encounter; Y93.89 Activity, other specified; Y92.89 Other specified places as the place of occurrence of the external cause; Y99.8 Other external cause status
CPT/HCPCS: 12014; 90471; 90715; 99283

== ENCOUNTER 2020-10-04 13:44 | Emergency (ER) | payer MEDICARE, OTHER, SELFPAY ==
[2017-10-22 14:10] VITALS: BMI 34.2
[2020-10-03 14:37] VITALS: BMI 34.0
[2020-10-04 13:45] VITALS: BP 116/70; PULSE 77; RESP 18; TEMP 36.8; O2SAT 96; BMI 34.9
--- NOTE | 2020-10-04 14:08 | ED.DCSUM_ITS ---
- ER Visit Summary Date of Service: 10/04/20 Chief Complaint: [Numbness to the right scalp and forehead] History of Present Illness: The patient is a 70 M [presents to the emergency department after sustaining a traumatic injury to the right orbit yesterday. Patient states that he had a martha pipe hit him in the orbit and he was seen in the emergency department and required stitches to his right upper eyelid. Patient had no imaging. Patient states that he has had the numbness since the time of the injury. Patient and his spoke with primary care physician and they were advised to come to the ER for evaluation and possible imaging. Patient is on Plavix. He denies nausea or vomiting. He has a hard time opening his eyes secondary to swelling on the right. Patient has history of coronary artery disease, high cholesterol, prior [place], obstructive sleep apnea. Denies any paresthesias of the extremities or weakness in extremities. He denies difficulty with speech.] Physical Examination: [HEENT-PERRLA, EOMI. Cranial nerves II through XII grossly intact. TMs clear. Mucous membranes moist. No adenopathy. Patient has ecchymosis and bruising about the right orbit and a laceration to the upper lid that is been repaired. Patient unable to open his eye secondary to swelling. I am able to pry the eyelids open and pupils equal and reactive to light bilaterally. No proptosis noted. Patient does have diffuse tenderness about the right orbit. Patient has decreased in station to the right side of the forehead and scalp compared to the opposite side. Cardiovascular-regular rate and rhythm without murmur or ectopy Lungs-clear to auscultation, chest wall stable without crepitus or subcu emphysema Abdomen-normoactive bowel sounds, soft, nontender, no rebound or rigidity, no peritoneal signs. Extremities-intact ?4, normal range of motion, normal pulses, atraumatic] Test Results: [CT scan of the brain without contrast showed soft tissue swelling to the right forehead and right orbit without any evidence of fractures or acute intracranial process.] Emergency Department Course and Treatment: [Case will be discussed with ENT as I suspect paresthesias are related to the trauma and soft tissue swelling compressing sensory nerves. No motor weakness is noted. I suspect symptoms will likely resolve with time as the swelling diminishes.] Treatment Plan:] Patient to follow-up with his primary care physician and also will be referred to ENT conveyor installer. Disposition: [Discharged home in stable condition] Impression: [Paresthesias right forehead/frontal scalp Traumatic injury right orbit with laceration with prior repair] This note was generated with [employer] dictation software. It may contain incorrect words, spelling, and punctuation that were not noted in review of the chart prior to signing ED Disposition - Plan for ED Patient: Referrals: Juan Pierce MD [Primary Care Provider] -
--- NOTE | 2020-10-04 14:08 | CT_ITS ---
STUDY: CT BRAIN WITHOUT CONTRAST REASON FOR EXAM: Male, 70 years old. trauma, paraesthesias RADIATION DOSAGE (If Supplied By Facility): CTDIvol = ( 60.81 ) mGy, DLP = ( 1044.28 ) mGycm TECHNIQUE: Transaxial CT imaging of the brain was performed without administration of intravenous contrast material. Individualized dose optimization techniques were used for this CT. COMPARISON: No relevant priors. FINDINGS: There is right frontal scalp soft tissue swelling and right periorbital soft tissue hematoma. Normal orbital contents. Normal calvarium. Normal size ventricles and extra-axial spaces for the patient''s age. Normal white matter tracts of the cerebral hemispheres. Normal basal ganglia and thalami. Normal brainstem. Normal cerebellum. There is no intracranial hemorrhage. There are no findings of an acute ischemic infarction. Normal visualized paranasal sinuses. CT/Brain/Head without Contrast IMPRESSION: Right frontal scalp soft tissue swelling and right periorbital soft tissue hematoma. Normal orbital contents. No acute intracranial pathology. Electronically Signed: Katie Steen MD at 14:56 EST Tel , Service support ,
--- NOTE | 2020-10-04 15:06 | ED.DEP ---
ED Disposition - Plan for ED Patient: Instructions: ED Eye Contusion Referrals: Juan Pierce MD [Primary Care Provider] - 5-7 Days Shimon Agarwal MD [STAFF PHYSICIAN] - 5-7 Days
[2020-10-04 15:27] VITALS: BP 103/73; PULSE 64; RESP 17; O2SAT 96
== END 2020-10-04 15:28 | disposition home or self-care (01) ==
LOC: ED 14:12
PROVIDERS: Emergency Provider Emergency Medicine; PCP Family Medicine
DX: R20.2 Paresthesia of skin (principal); S01.111D Laceration without foreign body of right eyelid and periocular area, subsequent encounter; I25.10 Atherosclerotic heart disease of native coronary artery without angina pectoris; E78.00 Pure hypercholesterolemia, unspecified; Z79.02 Long term (current) use of antithrombotics/antiplatelets; Z79.899 Other long term (current) drug therapy; X58.XXXD Exposure to other specified factors, subsequent encounter
CPT/HCPCS: 70450; 99282

== ENCOUNTER 2021-06-25 12:15 | Outpatient (CLI) | payer MEDICARE, OTHER, SELFPAY ==
[2017-10-22 14:10] VITALS: BMI 34.2
[2021-06-25 12:29] VITALS: BP 111/68; PULSE 86; RESP 16; TEMP 36.6; O2SAT 98; BMI 33.6
[2021-06-25] MEDS: 0.9% Saline Lock 10 ML Syringe IV (12:29)
[2021-06-25 13:25] VITALS: BP 107/67; PULSE 87; RESP 16; TEMP 37.2; O2SAT 97
[2021-06-25 14:18] VITALS: BP 120/69; PULSE 81; RESP 16; TEMP 36.8; O2SAT 98
== END 2021-06-25 14:30 | disposition home or self-care (01) ==
LOC: MS3OUT 12:15 → MS3 12:16
PROVIDERS: PCP Family Medicine; Referring Provider Nurse Practitioner Adult Health; Visit Provider Nurse Practitioner Adult Health
DX: Z23 Encounter for immunization (principal); U07.1 COVID-19
CPT/HCPCS: J7050; M0245; Q0245; A4216

== ENCOUNTER 2021-09-28 12:48 | Outpatient (CLI) | payer MEDICARE, OTHER, SELFPAY ==
[2017-10-22 14:10] VITALS: BMI 34.2
--- NOTE | 2021-09-28 12:56 | ECHOCS_ITS ---
Reason For Study: CHF Procedure This was a 2D Doppler, Color Flow transthoracic echocardiogram. Contrast injection was performed. Exam performed in department. Left Ventricle Normal LV size. The estimated ejection fraction is 45 %. Mild to moderate segmental systolic dysfunction (see wall motion). Stage 1 diastolic dysfunction. Right Ventricle Normal RV size. Normal systolic function. Atria Normal left atrium. Normal right atrium. Mitral Valve Normal mitral valve. Tricuspid Valve Normal tricuspid valve. Mild tricuspid valve insufficiency. Pulmonary artery systolic pressure is 26 mmHg. Aortic Valve The aortic valve is not well visualized. Pulmonic Valve The pulmonic valve is not well visualized. Great Vessels Normal aortic root. The pulmonary artery is normal size. Normal inferior vena cava. Pericardium/Pleural No pericardial effusion. Medication Diluted definity 6ml given slow IV push to enhance endocardial definition. MMode/2D Measurements & Calculations LVIDd: 4.5 cm IVSd: 1.3 cm Ao root diam: 3.6 cm LVIDs: 3.5 cm LVPWd: 1.2 cm RVDd: 2.8 cm FS: 23.8 % LAV(MOD-bp): 34.2 ml LVAd ap4: 32.3 cm2 SV(MOD-sp4): 39.2 ml LAV(MOD-bp) Indexed: 15.5 ml/m2 LVLd ap4: 8.8 cm LAV(MOD-sp2): 38.5 ml EDV(MOD-sp4): 96.4 ml LAV(MOD-sp4): 27.6 ml EDV(sp4-el): 100.0 ml LVAs ap4: 24.1 cm2 LVLs ap4: 8.2 cm ESV(MOD-sp4): 57.2 ml ESV(sp4-el): 59.8 ml EF(MOD-sp4): 40.6 % EF(sp4-el): 40.2 % SV(sp4-el): 40.2 ml LA A4 area: 12.9 cm2 LA dimension(2D): 3.7 cm RA A4 area: 11.8 cm2 Doppler Measurements & Calculations MV E max bj: 35.9 cm/sec Lat Peak E' Bj: 3.5 cm/sec Med Peak E' Bj: 3.7 cm/sec MV A max bj: 71.0 cm/sec E/E' lat: 10.3 E/E' med: 9.7 MV E/A: 0.51 Ao V2 max: 103.0 cm/sec LV V1 max: 80.8 cm/sec PA V2 max: 86.1 cm/sec Ao max P.2 mmHg LV V1 max P.6 mmHg Ao V2 mean: 77.0 cm/sec Ao mean P.5 mmHg Ao V2 VTI: 19.3 cm TR max bj: 236.7 cm/sec TR max P.4 mmHg ECHO/Echo Complete W/ Contrast Interpretation Summary The estimated ejection fraction is 45 %. Normal LV size. Mild to moderate segmental systolic dysfunction (see wall motion). Stage 1 diastolic dysfunction. Contrast injection was performed. Compared to previous study, the left ventricu lar systolic function is the same.. Ordering Physician: Rudy Jackson Referring Physician: Juan Pierce Performed By: Delores Jackson, RDCS, RVT
== END 2021-09-28 23:59 | disposition home or self-care (01) ==
LOC: CVS 12:49
PROVIDERS: PCP Family Medicine; Visit Provider Nurse Practitioner Family
DX: I25.10 Atherosclerotic heart disease of native coronary artery without angina pectoris (principal)
CPT/HCPCS: 93306; Q9957; A4216; C8929

== ENCOUNTER 2021-10-24 08:58 | Outpatient (CLI) | payer MEDICARE, OTHER, SELFPAY ==
[2017-10-22 14:10] VITALS: BMI 34.2
[2021-10-24 10:00] LABS: AST(SGOT) 28 U/L (15-37); Alanine Aminotransfer ALT/SGPT 33 U/L (16-61); Albumin, Serum 3.7 g/dL (3.2-5.0); Alkaline Phosphatase 62 U/L (45-117); Anion Gap 4 (5-15); BUN 18 mg/dL (7-18); BUN/Creat Ratio 14.3 RATIO (10-20); Bilirubin, Direct 0.08 mg/dL (0.00-0.30); Calcium,Total 8.9 mg/dL (8.5-10.1); Chloride 106 mmol/L (98-107); Cholesterol 225 mg/dL (200); Creatinine, Serum 1.26 mg/dL (0.70-1.30); EST Glomerular Filtration Rate 60 mL/min (>60); Est Glom Filt Rate - Afr Amer 73 mL/min (>60); Globulin 4.1 g/dL (2.2-4.2); Glucose 106 mg/dL (74-106); High Density Lipoprotein 43 mg/dL; Potassium 4.9 mmol/L (3.5-5.1); Protein, Total 7.8 g/dL (6.4-8.2); Sodium Level 139 mmol/L (136-145); Triglycerides 233 mg/dL; Very Low Density Lipoprotein 47 mg/dL (5-40)
== END 2021-10-24 23:59 | disposition home or self-care (01) ==
LOC: LAB 08:59
PROVIDERS: PCP Family Medicine; Referring Provider Nurse Practitioner Family; Visit Provider Nurse Practitioner Family
DX: I25.10 Atherosclerotic heart disease of native coronary artery without angina pectoris (principal); I25.2 Old myocardial infarction; I25.5 Ischemic cardiomyopathy; E78.5 Hyperlipidemia, unspecified; Z95.5 Presence of coronary angioplasty implant and graft; E78.00 Pure hypercholesterolemia, unspecified
CPT/HCPCS: 36415; 80048; 80061; 80076

== ENCOUNTER → 2022-09-19 | Outpatient (CLI) | payer MEDICARE, OTHER, SELFPAY ==
[2017-10-22 14:10] VITALS: BMI 34.2
[2022-09-19 12:46] LABS: AST(SGOT) 22 U/L (15-37); Alanine Aminotransfer ALT/SGPT 25 U/L (16-61); Albumin, Serum 3.7 g/dL (3.2-5.0); Alkaline Phosphatase 66 U/L (45-117); Bilirubin, Direct 0.16 mg/dL (0.00-0.30); Cholesterol 221 mg/dL (200); Globulin 4.1 g/dL (2.2-4.2); High Density Lipoprotein 45 mg/dL; Protein, Total 7.8 g/dL (6.4-8.2); Triglycerides 219 mg/dL; Very Low Density Lipoprotein 44 mg/dL (5-40)
== END | disposition home or self-care (01) ==
LOC: LAB 11:31
PROVIDERS: Nurse Practitioner Family; PCP Family Medicine; Referring Provider Internal Medicine Cardiovascular Disease; Visit Provider Internal Medicine Cardiovascular Disease
DX: E78.5 Hyperlipidemia, unspecified (principal)
CPT/HCPCS: 36415; 80061; 80076

== ENCOUNTER → 2022-10-10 | Outpatient (CLI) | payer MEDICARE, OTHER, SELFPAY ==
[2017-10-22 14:10] VITALS: BMI 34.2
--- NOTE | 2022-10-10 12:12 | STRESSREP ---
Stress Test Report Exercise myocardial perfusion stress test. 72-year-old man with a history of coronary artery disease Stress protocol: Resting EKG demonstrates normal sinus rhythm with a rate of 60 bpm resting blood pressure is 112/78 mmHg. The patient exercised according to the regular Beny protocol for a total duration of 9 minutes attaining a maximum heart rate of 137 bpm which was 91% of maximum predicted heart rate; the maximum workload was 10.1 metabolic equivalents. At rest there were no ST or T wave changes noted to suggest ischemia and at peak exercise upsloping ST changes only were noted which did not meet the criteria for ischemia. No clinical angina was noted the test was terminated due to the target heart rate being achieved/fatigue. The peak blood pressure was 140/78 mmHg. Rate-pressure product was 17,000. Myocardial perfusion protocol. 14.0 mCi of technetium 99m sestamibi was injected at rest. The patient exercised according to regular Beny protocol for total duration of 9 minutes and at peak exercise 44.8 mCi of technetium 99m sestamibi was injected stress images were obtained stress and rest images were reconstructed in comparing the short axis vertical long and horizontal long axis. Gated images were also obtained. Perfusion SPECT analysis: Review of the stress images demonstrate normal uptake of tracer noted in all areas of the myocardium except for the distal anterior wall and apex with a filling defect noted in the inferior apical wall. The resting images similarly demonstrate normal uptake of tracer noted in all areas of the myocardium except for the same areas noted in the apex and the anterior wall and septum. No areas of reversibility are noted to suggest ischemia, but the above is suggestive of a previous anterior apical infarct. Gated SPECT analysis: The gated ejection fraction is 45%. Conclusion: Normal exercise myocardial perfusion stress test at a high workload Low normal ejection fraction. Previous anterior apical infarct noted no ischemia present.
== END | disposition home or self-care (01) ==
LOC: CVS 07:00
PROVIDERS: PCP Family Medicine; Referring Provider Internal Medicine Cardiovascular Disease; Visit Provider Internal Medicine Cardiovascular Disease
DX: I25.10 Atherosclerotic heart disease of native coronary artery without angina pectoris (principal); Z95.5 Presence of coronary angioplasty implant and graft
CPT/HCPCS: 78452; 93017; A9500

== ENCOUNTER 2023-04-29 08:10 | Emergency (ER) | payer MEDICARE, OTHER, SELFPAY ==
[2017-10-22 14:10] VITALS: BMI 34.2
[2023-04-29 08:11] VITALS: BP 149/90; PULSE 71; RESP 16; TEMP 35.4; O2SAT 98
--- NOTE | 2023-04-29 08:41 | EDS_ITS ---
HPI History of Present Illness Chief Complaint: Nosebleed Informant: patient and spouse/S.O. Narrative Narrative: Recurrent right side epistaxis this morning. Issues 2 nights ago was able to control it. This morning gentle blowing on the left side rebled on the right. He is on aspirin and Plavix for history coronary stent placed 5 years ago. He is followed by Dr. Matthew. Denies any digital manipulation. 10 to 12 years ago had similar episodes come emergency room requiring a packing. He states he would like to avoid that today. Denies any dry air in the home. Prior similar symptoms: Yes PFSH PFSH Medical History Atherosclerosis of coronary artery of [place] heart without angina pectoris CKD (chronic kidney disease), stage III COVID-19 Diverticulitis Hyperlipidemia Ischemic cardiomyopathy Lung nodule Obesity Old anterior wall myocardial infarction JONH (obstructive sleep apnea) Pulmonary nodule ST elevation (STEMI) myocardial infarction involving left anterior descending coronary artery (10/22/17) Systolic dysfunction without heart failure Home Medications aspirin 81 mg tablet,delayed release 81 mg PO DAILY@0800 10/24/17 [Rx Last Taken Unknown] clopidogrel 75 mg tablet 75 mg PO DAILY #90 tabs 09/28/21 [Rx Last Taken Unknown] ezetimibe 10 mg tablet (Zetia) 10 mg PO DAILY #30 tabs 10/26/21 [Rx Last Taken Unknown] lisinopril 10 mg tablet See Rx Instructions .Route .COMPLEX #90 TABLETS 04/25/22 [Rx Last Taken Unknown] pravastatin 40 mg tablet 40 mg PO DAILY #90 tabs 09/24/22 [Rx Last Taken Unknown] Allergy/AdvReac Type Severity Reaction Status Date / Time atorvastatin [From Lipitor] AdvReac myalgias Verified 04/29/23 08:10 carvedilol AdvReac nightmares Verified 04/29/23 08:10 erythromycin base AdvReac Nausea/Vom/ Verified 04/29/23 08:10 Diarrhea rosuvastatin [From Crestor] AdvReac myalgias Verified 04/29/23 08:10 Family History Mother COPD (chronic obstructive pulmonary disease) Father Diabetes Son Asthma Surgical History History of coronary artery stent placement (10/22/17) Social History Smoking Status: Never smoker alcohol intake: current alcohol intake frequency: a few times a month Alcohol type: beer substance use type: does not use caffeine: Yes Type: coffee seatbelt use: sometimes do you feel safe at home: Yes ROS ROS ED Constitutional Constitutional ED: Denies chills, fever(s) or sweats Eyes Eyes: Denies change in vision ENT ENT ED: Reports other Details: Right-sided epistaxis ; Denies dysphagia or sore throat Cardiovascular Cardiovascular: Denies chest pain, leg edema, palpitations or racing heartbeat Respiratory/Chest Respiratory/Chest: Denies cough, dyspnea or dyspnea on exertion Gastrointestinal Gastrointestinal: Denies abdominal pain, diarrhea, nausea or vomiting Genitourinary Genitourinary ED: Denies dysuria, hematuria or urinary frequency Musculoskeletal Musculoskeletal: Denies back pain, extremity pain or neck pain Integumentary Denies rash or wounds Neurologic Neurologic: Denies headache(s), paresthesias or weakness EXAM Physical Exam Const Vital Signs: 04/29/23 08:11 Temperature 95.8 F L Temperature Source Temporal Pulse Rate 71 Respiratory Rate 16 Blood Pressure 149/90 H Blood Pressure Mean 109 Pulse Ox 98 Oxygen Delivery Method Room Air Positive well nourished and well developed General Appearance ED: well developed and NAD HEENT Reports moist mucous membranes HEENT Narrative: Dried blood right nostril, clots removed, anterior septum 2 very tiny pinpoint ulcers, no active bleeding from the site. No posterior pharyngeal active bleeding, dried blood. normocephalic and atraumatic Eyes PERRL, EOMs intact bilaterally and conjunctivae normal General Eye ED: Yes normal appearance of both eyes Neck no lymphadenopathy and supple General: Negative for tenderness Chest Wall Chest: Negative for tenderness Resp normal respiratory effort and normal air movement Effort and Inspection: symmetric chest movement; Negative for respiratory distress Cardio regular rate, regular rhythm and no murmurs Peripheral Pulses: pulses 2+ throughout GI normal to inspection, nondistended, normoactive bowel sounds and non-tender Palpation: Negative for guarding or rebound tenderness present Back/Spine no CVA tenderness and no thoracic nor lumbar tenderness Extremity normal to inspection General Extremety ED: Negative for edema or tenderness General Extremity: Negative for edema Neuro oriented x3 and no sensory deficits noted Sensorium / Orientation: awake and alert Skin no rashes or lesions noted and no wounds MDM MDM MDM Narrative Medical decision making narrative: Interventions / MDM: Differential diagnosis: Epistaxis Diagnosis considered but do not suspect: N/A My EKG interpretation: N/A Imaging independently reviewed and interpreted by myself: N/A External documents reviewed: N/A Test considered but not ordered:N/A ED course: Patient examined appears to have an anterior bleed that is controlled. Clots removed from the nare, 0840, Afrin on cotton was placed along the septum, will monitor and reevaluate. 0910: Cotton removed, no active bleeding. We will continue to monitor. 0945: No rebleeds, patient ambulated in department, there is no rebleeds with activity. Sent home with nose pinchers with discussion to clamp and control however if persistent he would need to return for likely packing at that time. He understands this. He is also given follow-up with ENT as he seen them in the past. All questions were answered. Re-evaluation: stable Disposition discussed with patient/family/significant other: Patient and significant other Case discussed with consulting clinician: N/A This note was generated with [employer] dictation software. It may contain incorrect words, spelling, and punctuation that were not noted in checking the note before signing. Discharge Plan Triage Chief Complaint: Nosebleed ED Provider: Omari Thompson Dx/Rx/DC Orders Clinical Impression: Right-sided epistaxis Instructions: ED Epistaxis (Adult) Prescriptions: No Action pravastatin 40 mg tablet 40 mg PO DAILY Qty: 90 3RF aspirin 81 MG tablet 81 mg PO DAILY@0800 0RF clopidogrel 75 mg tablet 75 mg PO DAILY Qty: 90 3RF ezetimibe [Zetia] 10 mg tablet 10 mg PO DAILY Qty: 30 12RF lisinopril 10 mg tablet See Rx Instructions .ROUTE .COMPLEX Qty: 90 3RF Dose Instruction: take 1 tablet by mouth once daily Rx Instructions: take 1 tablet by mouth once daily Primary Care Provider: Juan Pierce Referrals: Robson Faustin MD [Med Staff - Active Staff] - 3-5 Days Juan Pierce MD [Primary Care Provider] - Activity Restrictions/Additional Instructions: If rebleeds, place nose pincher on for at least 1/2-hour. If continues to bleed return to emergency room for reevaluation. Otherwise follow-up with ENT. Disposition Disposition: Home, Self Care
[2023-04-29] MEDS: Oxymetazoline 0.05% 1 SPRAY SPRAY.BTL NASAL (08:51)
== END 2023-04-29 09:55 | disposition home or self-care (01) ==
PROVIDERS: Emergency Provider Emergency Medicine; PCP Family Medicine; Visit Provider Emergency Medicine
DX: R04.0 Epistaxis (principal); N18.30 Chronic kidney disease, stage 3 unspecified; I25.10 Atherosclerotic heart disease of native coronary artery without angina pectoris; E78.5 Hyperlipidemia, unspecified; Z79.82 Long term (current) use of aspirin; Z79.02 Long term (current) use of antithrombotics/antiplatelets; Z95.5 Presence of coronary angioplasty implant and graft
CPT/HCPCS: 30901; 99281; 99282

== ENCOUNTER → 2023-09-19 | Outpatient (CLI) | payer MEDICARE, OTHER, SELFPAY ==
[2017-10-22 14:10] VITALS: BMI 34.2
[2023-09-19 12:11] LABS: AST(SGOT) 20 U/L (15-37); Alanine Aminotransfer ALT/SGPT 24 U/L (16-61); Albumin, Serum 3.7 g/dL (3.2-5.0); Alkaline Phosphatase 71 U/L (45-117); Bilirubin, Direct 0.17 mg/dL (0.00-0.30); Cholesterol 202 mg/dL (200); High Density Lipoprotein 48 mg/dL; Protein, Total 7.7 g/dL (6.4-8.2); Triglycerides 194 mg/dL; Very Low Density Lipoprotein 39 mg/dL (5-40)
== END | disposition home or self-care (01) ==
LOC: LAB 11:13
PROVIDERS: PCP Family Medicine; Referring Provider Nurse Practitioner Family; Visit Provider Nurse Practitioner Family
DX: I25.10 Atherosclerotic heart disease of native coronary artery without angina pectoris (principal); E78.5 Hyperlipidemia, unspecified
CPT/HCPCS: 36415; 80061; 80076

== ENCOUNTER → 2024-02-24 | Outpatient (CLI) | payer MEDICARE, OTHER, SELFPAY ==
[2017-10-22 14:10] VITALS: BMI 34.2
== END | disposition home or self-care (01) ==
LOC: SL 20:01
PROVIDERS: PCP Family Medicine; Referring Provider Nurse Practitioner Acute Care; Visit Provider Nurse Practitioner Acute Care
DX: G47.33 Obstructive sleep apnea (adult) (pediatric) (principal)
CPT/HCPCS: 95810

== ENCOUNTER → 2024-11-09 | Outpatient (CLI) | payer MEDICARE, OTHER, SELFPAY ==
[2017-10-22 14:10] VITALS: BMI 34.2
[2024-11-09 10:33] LABS: Absolute Lymphocyte Count 1.35 X10^3/uL (0.83-4.51); Absolute Neutrophil Count 3.8 X10^3/uL (2.0-7.7); Basophil# 0.06 X10^3/uL; Eosinophil# 0.13 X10^3/uL; Eosinophils% 2.2 % (0-5); Hematocrit 45.1 % (40-54); Hemoglobin 14.8 g/dL (13.0-16.5); Lymphocyte # 1.35 X10^3/ul (0.83-4.51); Lymphocyte % 23.1 % (19-41); Mean Corp Hgb Conc 32.8 g/dL (32-36); Mean Corpuscular Hgb 28.8 pg (27.0-32.0); Mean Corpuscular Volume 87.9 fL (80-94); Mean Platelet Vol. 9.5 fl (6.2-12.0); Monocyte# 0.47 X10^3/uL; NRBC Flagged by Analyzer 0 % (0-5); Neutrophil # 3.82 X10^3/uL (2.7-7.7); Neutrophil % 65.4 % (47-70); Platelet Count 214 K/mm3 (150-450); RBC Distribution Width CV 13.4 % (11.6-14.6); RBC Distribution Width SD 43.1 fl (35.1-43.9); Red Blood Count 5.13 M/mm3 (4.6-6.2); White Blood Count 5.9 K/mm3 (4.4-11.0)
[2024-11-09 11:29] LABS: AST(SGOT) 25 U/L (<=37); Alanine Aminotransfer ALT/SGPT 15 U/L (<=46); Albumin, Serum 3.9 g/dL (3.4-4.8); Alkaline Phosphatase 67 U/L (40-129); Anion Gap 9 (5-15); BUN 13 mg/dL (4-19); BUN/Creat Ratio 12.2 RATIO (10-20); Bilirubin, Direct 0.16 mg/dL (0.00-0.30); Calcium,Total 9.3 mg/dL (7.6-11.0); Carbon Dioxide 25.8 mmol/L (21.0-32.0); Chloride 104 mmol/L (98-108); Cholesterol 209 mg/dL (<=200); Creatinine, Serum 1.05 mg/dL (0.70-1.20); EST Glomerular Filtration Rate 75 (>60); Globulin 3.3 g/dL (2.2-4.2); Glucose 104 mg/dL (70-99); High Density Lipoprotein 52 mg/dL; Low Density Lipoprotein Calc. 125 mg/dL; Potassium 4.8 mmol/L (3.3-5.1); Protein, Total 7.2 g/dL (5.9-8.4); Sodium Level 139 mmol/L (133-145); Total Bilirubin 0.37 mg/dL (0.00-1.30); Triglycerides 159 mg/dL; Very Low Density Lipoprotein 32 mg/dL (5-40)
== END | disposition home or self-care (01) ==
LOC: LAB 10:15
PROVIDERS: PCP Family Medicine; Referring Provider Nurse Practitioner Family; Visit Provider Nurse Practitioner Family
DX: E78.2 Mixed hyperlipidemia (principal); I25.5 Ischemic cardiomyopathy; Z95.5 Presence of coronary angioplasty implant and graft
CPT/HCPCS: 36415; 80048; 80061; 80076; 85025

== ENCOUNTER 2025-07-19 09:39 | Emergency (ER) | payer MEDICARE, OTHER, SELFPAY ==
[2017-10-22 14:10] VITALS: BMI 34.2
[2025-07-19 09:39] VITALS: BP 142/86; PULSE 101; RESP 18; TEMP 38.1; O2SAT 96; BMI 35.5
[2025-07-19 09:42] VITALS: BP 137/71; PULSE 91; RESP 18; TEMP 38.1; O2SAT 95
--- NOTE | 2025-07-19 10:06 | RAD_ITS ---
PROCEDURE: CHEST 1 VIEW (PORTABLE) 07/19/2025 REASON FOR EXAM: COUGH TECHNIQUE: Frontal view of the chest. COMPARISON: 09/11/2018 FINDINGS: Lungs: Lungs clear of pneumonia and congestion. Pleura: No pleural effusions, thickening, or pneumothorax. Heart: Normal in size and configuration. Mediastinum/Sade: Unremarkable. Great vessels: Unremarkable. Bones/soft tissues: Degenerative changes of the inferior aspects of the glenohumeral joints. Cardiac monitoring leads overlie the chest wall. Multilevel spondylosis. RAD/Chest 1 View (Portable) IMPRESSION: No active cardiopulmonary disease. Reading Location: [place] [id number]
--- NOTE | 2025-07-19 10:06 | EKG12_ITS ---
Test Reason : GENERAL Blood Pressure : */* mmHG Vent. Rate : 88 BPM Atrial Rate : 88 BPM P-R Int : 162 ms QRS Dur : 82 ms QT Int : 336 ms P-R-T Axes : 50 39 58 degrees QTcB Int : 406 ms Normal sinus rhythm Low voltage QRS Septal infarct (cited on or before 23-Oct-2017) Abnormal ECG Confirmed by Andrew Hernandez ([id number]), supervising film or videotape editor JUSTIN NGUYỄN ([id number]) on 07/22/2025 8:19:44 AM Referred By: Confirmed By: Andrew Hernandez
--- NOTE | 2025-07-19 10:15 | EDS_ITS ---
HPI History of Present Illness Chief Complaint: General Illness Informant: patient and spouse/S.O. Narrative Narrative: 75-year-old male presenting to the emergency room with fever and cough. Patient states that on Friday began to have nasal congestion and rhinorrhea. This has progressively worsened to now include 102 fever last night. He notes some associated chest soreness sputum sore throat myalgias dehydration. He notes that he is concerned that he may be having a heart attack as the generalized fatigue he feels is similar to when he had his heart attack. He had stents placed 2018. He notes a small amount of diarrhea last night. He had negative COVID test last night as well. [facility] Medical History (Updated 07/19/25 @ 11:[address] Calvin Haskins, DO) Basal cell carcinoma COVID-19 Hyperlipidemia Obesity JONH (obstructive sleep apnea) Lung nodule Old anterior wall myocardial infarction Ischemic cardiomyopathy CKD (chronic kidney disease), stage III Pulmonary nodule Atherosclerosis of coronary artery of [place] heart without angina pectoris Diverticulitis Systolic dysfunction without heart failure ST elevation (STEMI) myocardial infarction involving left anterior descending coronary artery (10/22/17) Home Medications ?Medication ?Instructions ?Recorded ?Last Taken ?Type aspirin 81 mg tablet,delayed 81 mg PO DAILY@0800 10/24 Unknown Rx release lisinopril 10 mg tablet See Rx Instructions .Route 0 07/30/24 Unknown Rx .COMPLEX #90 TABLETS Allergy/AdvReac Type Severity Reaction Status Date / Time ibuprofen Allergy Angioedema Verified 07/19/25 09:41 atorvastatin (From Lipitor) AdvReac Intermediate myalgias Verified 07/19/25 09:41 pravastatin AdvReac Intermediate Brain Fog Verified 07/19/25 09:41 carvedilol AdvReac nightmares Verified 07/19/25 09:41 erythromycin base AdvReac Nausea/Vom/ Verified 07/19/25 09:41 Diarrhea rosuvastatin (From Crestor) AdvReac myalgias Verified 07/19/25 09:41 Family History Mother COPD (chronic obstructive pulmonary disease) Father Diabetes Son Asthma Surgical History History of nasal surgery History of coronary artery stent placement (10/22/17) Social History Smoking Status: Never smoker alcohol intake: current alcohol intake frequency: a few times a month Alcohol type: beer substance use type: does not use caffeine: Yes Type: coffee seatbelt use: sometimes do you feel safe at home: Yes ROS ROS ED Constitutional Constitutional ED: Reports chills and fever(s); Denies weight loss Eyes Eyes: Denies change in vision or diplopia ENT ENT ED: Reports rhinorrhea and sore throat; Denies ear pain Cardiovascular Cardiovascular: Reports chest pain; Denies orthopnea, palpitations or racing heartbeat Respiratory/Chest Respiratory/Chest: Reports cough and sputum; Denies dyspnea or orthopnea Gastrointestinal Gastrointestinal: Reports diarrhea and nausea; Denies abdominal pain or vomiting Genitourinary Genitourinary ED: Denies dysuria, hematuria or urinary frequency Musculoskeletal Musculoskeletal: Reports myalgias; Denies arthralgias Integumentary Denies abscess or rash Neurologic Neurologic: Denies headache(s) or weakness Psychiatric Psychiatric: Denies anxiety, depression, suicidal ideation or suicidal thoughts Endocrine Endocrinology: Denies polydipsia, polyphagia or polyuria Allergic/Immunologic Allergic/Immunologic ED: Denies mouth swelling, tongue swelling or urticaria EXAM Physical Exam Const Vital Signs: 07/19/25 09:39 07/19/25 09:42 07/19/25 10:58 Temperature 100.6 F H 100.6 F H Temperature Source Oral Oral Pulse Rate 101 H 91 Respiratory Rate 18 18 Respiratory Effort Normal Respiratory Pattern Normal Blood Pressure 142/86 H 137/71 H Blood Pressure Mean 104 93 Pulse Ox 96 95 Oxygen Delivery Method Room Air Room Air 07/19/25 11:39 07/19/25 11:48 Temperature 98.2 F Temperature Source Pulse Rate 77 77 Respiratory Rate 16 16 Respiratory Effort Respiratory Pattern Blood Pressure 125/70 H 125/70 H Blood Pressure Mean 88 88 Pulse Ox 98 98 Oxygen Delivery Method Positive well nourished and well developed General Appearance ED: well developed and NAD HEENT Reports normocephalic, head/scalp atraumatic and moist mucous membranes HEENT Narrative: Mild turbinate edema Eyes PERRL and EOMs intact bilaterally Neck no lymphadenopathy, supple and no JVD Resp normal respiratory effort and clear to auscultation bilaterally Resp Narrative: Moist cough Cardio regular rate, regular rhythm and no murmurs GI normal to inspection, nondistended, normoactive bowel sounds and non-tender Palpation: soft Back/Spine no CVA tenderness and normal ROM Extremity normal to inspection General Extremety ED: Negative for edema General Extremity: Negative for edema Neuro oriented x3 and CN's II-XII intact bilaterally Sensorium / Orientation: alert Motor Exam: strength 5/5 throughout Psych mental status grossly normal Mood & Affect: Negative for depressed or tearful Skin no rashes or lesions noted and no wounds MDM MDM MDM Narrative Medical decision making narrative: Differential diagnosis includes but not limited to viral syndrome pneumonia dehydration acute kidney injury electrolyte abnormalities acute coronary syndrome Patient is influenza A positive. My independent interpretation a chest x-ray is no acute process. EKG is nonischemic and shows a normal sinus rhythm at a rate of 88 bpm. CBC BMP shows glucose 126 platelet count is 195 troponin is 22. Patient received IV fluids. Clinically patient has influenza A but does not show obvious signs of dehydration or pneumonia. He will be discharged home with supportive care. History & Record Review Discussion w/independent historian: Patient and Significant other Lab Data Attestation: I reviewed the patient's lab results. Labs: Laboratory Results - last 24 hr 07/19/25 10:26 WBC 5.4 RBC 4.82 Hgb 14.0 Hct 42.3 MCV 87.8 MCH 29.0 MCHC 33.1 RDW Std Deviation 43.3 RDW Coeff of Sunil 13.4 Plt Count 195 MPV 9.5 Immature Gran % (Auto) 0.400 Neut % (Auto) 77.9 H Lymph % (Auto) 11.4 L Lassen % (Auto) 9.3 Eos % (Auto) 0.6 Baso % (Auto) 0.4 Absolute Neuts (auto) 4.2 Absolute Lymphs (auto) 0.61 L Nucleated RBC % 0 Sodium 133 L Potassium 4.1 Chloride 99 Carbon Dioxide 23.9 Anion Gap 10 BUN 11 Creatinine 1.17 Estim Creat Clear Calc 68.44 Est GFR (MDRD) Non-Af 66 BUN/Creatinine Ratio 9.7 L Glucose 126 H Calcium 8.9 Total Bilirubin 0.33 AST 36 ALT 24 Alkaline Phosphatase 55 Troponin T High Sens 22 Total Protein 7.4 Albumin 4.0 Globulin 3.3 Albumin/Globulin Ratio 1.2 Radiography Diagnostic Testing: Clinical Impression(s) from Imaging Studies Chest X-Ray 07/19/25 10:06 IMPRESSION: No active cardiopulmonary disease. Reading Location: [place] [id number] EKG Initial EKG: Attestation: I personally reviewed and interpreted this EKG as follows: Comments: Normal sinus rhythm ventricular rate of 88 bpm Discharge Plan Triage Chief Complaint: General Illness ED Provider: Calvin Haskins Dx/Rx/DC Orders Clinical Impression: Influenza A, Atherosclerosis of coronary artery of [place] heart without angina pectoris Instructions: ED Influenza (Adult) Prescriptions: No Action aspirin 81 MG tablet 81 mg PO DAILY@0800 0RF lisinopril 10 mg tablet See Rx Instructions .ROUTE .COMPLEX Qty: 90 3RF Dose Instruction: take 1 tablet by mouth once daily Rx Instructions: take 1 tablet by mouth once daily Primary Care Provider: Juan Pierce Referrals: Juan Pierce MD [Primary Care Provider, Medical] - As Needed Print Language: Camb[place]ian Disposition Disposition: Home, Self Care Discharge Date/Time: 07/19/25 11:51
[2025-07-19] MEDS: 0.9% Normal Saline (1000mL) 1,000 ML 1000 ML IV (10:34)
[2025-07-19 10:36] LABS: Hematocrit 42.3 % (40-54); Hemoglobin 14.0 g/dL (13.0-16.5); Immature Granulocytes Count 0.020 X10^3/uL (0.0-0.0); Mean Corp Hgb Conc 33.1 g/dL (32-36); Mean Corpuscular Volume 87.8 fL (80-94); Mean Platelet Vol. 9.5 fl (6.2-12.0); NRBC Flagged by Analyzer 0 % (0-5); Platelet Count 195 K/mm3 (150-450); RBC Distribution Width CV 13.4 % (11.6-14.6); RBC Distribution Width SD 43.3 fl (35.1-43.9); Red Blood Count 4.82 M/mm3 (4.6-6.2); White Blood Count 5.4 K/mm3 (4.4-11.0)
--- NOTE | 2025-07-19 11:02 | ED.RN ---
Critical call from lab stating patient is Flu A positive. Dr. Haskins notified.
[2025-07-19 11:19] LABS: AST(SGOT) 36 U/L (<=37); Alanine Aminotransfer ALT/SGPT 24 U/L (<=46); Albumin, Serum 4.0 g/dL (3.4-4.8); Alkaline Phosphatase 55 U/L (40-129); Anion Gap 10 (7-18); BUN 11 mg/dL (4-19); BUN/Creat Ratio 9.7 RATIO (10-20); Calcium,Total 8.9 mg/dL (7.6-11.0); Carbon Dioxide 23.9 mmol/L (20.0-29.0); Chloride 99 mmol/L (96-106); Estimated Creatinine Clearance 68.44 ml/min (50-250); Globulin 3.3 g/dL (2.2-4.2); Glucose 126 mg/dL (70-99); Potassium 4.1 mmol/L (3.5-5.1); Troponin T High Sensitivity 22 ng/L (<=22)
[2025-07-19 11:39] VITALS: BP 125/70; PULSE 77; RESP 16; O2SAT 98
[2025-07-19 11:48] VITALS: BP 125/70; PULSE 77; RESP 16; TEMP 36.8; O2SAT 98
== END 2025-07-19 11:51 | disposition home or self-care (01) ==
PROVIDERS: Emergency Provider Emergency Medicine; PCP Family Medicine; Visit Provider Emergency Medicine
DX: J10.1 Influenza due to other identified influenza virus with other respiratory manifestations (principal); N18.30 Chronic kidney disease, stage 3 unspecified; E78.5 Hyperlipidemia, unspecified; I25.10 Atherosclerotic heart disease of native coronary artery without angina pectoris
CPT/HCPCS: 71045; 80053; 84484; 85025; 87631; 93005; 99284; A4216